=== PATIENT | female | born 1965 | race Caucasian/White ===

== ENCOUNTER 2020-03-25 07:57 | Outpatient (REF) | payer OTHER, SELFPAY ==
--- NOTE | 2020-04-26 | PFT_ITS ---
INDICATIONS: Dyspnea. SPIROMETRY: The FEV1 to FVC of 85% with an FEV1 of 2.52 L, which is 97% predicted and an FVC of 2.96 L, which is 89% predicted. No significant response to bronchodilators noted. Maximum voluntary ventilation 87% predicted. LUNG VOLUMES: Total lung capacity 87% predicted. DIFFUSION CAPACITY: 80% predicted. COMPARISONS: None. INTERPRETATION: No obstructive nor restrictive ventilatory defects have been identified. No significant response to bronchodilators noted. Normal maximum voluntary ventilation. Lung volumes are normal in addition to a low normal diffusion capacity. Clinical correlation warranted. MD OLEKSANDR Dan/MODLenny / [id number]
== END 2020-03-25 07:58 | disposition home or self-care (01) ==
LOC: HO.RESP 07:57
PROVIDERS: PCP Family Medicine; Visit Provider Internal Medicine
DX: J18.9 Pneumonia, unspecified organism (principal); R53.83 Other fatigue; R06.00 Dyspnea, unspecified
CPT/HCPCS: 94060; 94727; 94729

== ENCOUNTER → 2020-04-13 09:34 | Outpatient (BNVA) | payer OTHER, SELFPAY | PROVIDERS: PCP Family Medicine; Referring Provider Family Medicine; Visit Provider Internal Medicine | DX: Z76.89 Persons encountering health services in other specified circumstances (principal) ==

== ENCOUNTER 2020-05-22 17:32 | Emergency (ER) | payer OTHER, SELFPAY ==
[2020-05-22] VITALS (11 sets, daily range): BP systolic 107–139; BP diastolic 40–69; PULSE 77–110; RESP 17–20; TEMP 36.9; O2SAT 99–100; BMI 22.4
--- NOTE | 2020-05-22 | ECG_ITS ---
Test Reason : OVERDOSE Blood Pressure : / mmHG Vent. Rate : 081 BPM Atrial Rate : 081 BPM P-R Int : 140 ms QRS Dur : 086 ms QT Int : 392 ms P-R-T Axes : 081 078 080 degrees QTc Int : 455 ms Normal sinus rhythm Normal ECG When compared with ECG of 24-FEB-2020 18:20, T wave inversion no longer evident in Inferior leads Referred By: Elida Murillo Electronically Signed By:FIONA BUENO MD
--- NOTE | 2020-05-22 18:11 | PC.NURSE ---
MD polk states pt will be intubated. States pt will recieve Etomidate. Pt verbalizes understanding of plan to sedate and intubate patient. 1817 - Etomidate 20mg given to patient at this time. 1818 - rocuronium 100mg administered to patient, pt not responding at this time 1820 pt intubated, pt tolerated procedure well. per MD polk will start propofol drip
--- NOTE | 2020-05-22 18:22 | CT_ITS ---
EXAMINATION: CT ANGIOGRAM NECK CLINICAL INFORMATION: Suicidal attempt. COMPARISON: None TECHNIQUE: The degree of stenosis determined by NASCET criteria. This CT examination was performed using dose optimization techniques as appropriate, variously including the following: *Automated exposure control *Adjustment of mA and/or kV according to patient size (this includes techniques or standardized protocols for targeted exams where dose is matched to indication/reason for exam; i.e. extremities or head) *Use of iterative reconstruction technique DLP: 562 mGy-cm FINDINGS: CTA: There is normal thoracic arch with origins of right brachiocephalic, left common carotid and left subclavian artery widely patent. Both common carotid arteries, bulbs and internal carotid arteries are widely patent. There is head thin band in the right distal CCA just before artery enters intracranially. Also visualized is a hairpin band medially of the left carotid artery in the mid neck at the level of C2 vertebra. There is no visible thrombus, laceration or intimal thickening seen in the carotid arteries. There are codominant vertebral arteries bilaterally which are widely patent. The origins of both vertebral arteries of the subclavian artery are widely patent as well. The basilar artery is widely patent. A dominant right jugular vein is seen and patent. The left jugular vein is patent as well. Non-CTA: There is orally inserted endotracheal and enteric tube traversing the oropharynx. There is moderate amount of fluid surrounding the oropharynx and nasopharynx which needs to be aspirated. No focal mass seen in the oral cavity, oropharynx or the nasal cavity. The paranasal sinuses and mastoid air cells are widely patent. Intracranially visualized brain parenchyma including the frontal, parietal, occipital lobes and the posterior fossa appears unremarkable. Bilateral optic globes and the optic nerves are intact. The orbits are symmetrical and normal. No abnormality seen involving the visualized calvarium and the bony orbits. There are numerous laceration seen surrounding bilateral anterior neck with soft tissue edema and gas. Visualized bilateral parotid, submandibular glands are unremarkable. There is mild heterogeneity of the thyroid gland but otherwise symmetrical. There is bilateral apical pleural and parenchymal thickening/scarring. The craniovertebral junction and the visualized cervical vertebrae are normal. No fracture, dislocation or subluxation seen. The craniovertebral junction is normal. CT/CT angio neck IMPRESSION: Widely patent bilateral carotid and vertebral arteries in the neck and intracranially. The jugular veins are patent. A normal cervical-cerebral arch is noted. There is significant tortuosity of distal right internal carotid and mid to distal left internal carotid artery. 6 significant fluid collection in the nasopharynx and oropharynx surrounding the trachea and the enteric tube. There are multiple soft tissue laceration involving the lower anterior neck with gas and edema. The enteric and endotracheal tube are in satisfactory position. There is no osseous abnormality or fracture. Results were discussed with ER nurse at 7:30 PM.
[2020-05-22] MEDS: propofoL 200 MG/20 ML VIAL 100 MG IVPUSH (18:26)
--- NOTE | 2020-05-22 18:39 | PC.NURSE ---
son jany notfied of pt status and pt requested this rn to call and only speak to jany. [phone]
[2020-05-22] MEDS: propofoL 1,000 MG/100 ML VIAL 6.91 MG IVCONT (18:55)
[2020-05-22 19:02] LABS: COVID-19 Test Negative (Negative); IDNOW Serial# 9DD0AD1C
--- NOTE | 2020-05-22 19:06 | PC.NURSE ---
Report taken from Talha, this RN resuming care. Pt found laying in bed, intubated, on a propofol drip @ 20 mcg/kg/min, running at 7.06 ml/hr. Pt -> CT, returns from CT on hospital bed without incident. VSS.
[2020-05-22] MEDS: iohexoL 350 MG/ML 100 ML INFUS..BTL IV (19:08)
--- NOTE | 2020-05-22 19:35 | PC.NURSE ---
Addendum entered by Madisyn Rodriguez 05/22/20 19:38: 50 mcg/kg/min, 17.73 ml/hr. Original Note: Pt remains awake in bed, eyes open, moving arms/legs. This RN suctioning mouth, pt tolerating procedure well. Propofol increased to max dose of 50 mcg/kg/min, 17.3 ml/hr. commercial hvac service technician at bedside attempting to obtain labs, UA obtained and sent. VSS. Continue to monitor.
[2020-05-22] MEDS: Midazolam HCl/PF 2 MG/2 ML VIAL 4 MG IVPUSH (19:40)
--- NOTE | 2020-05-22 19:57 | PC.NURSE ---
Pt remains awake, although maxed out on Propofol drip. Unable to obtain labs at this time. Per MD, plan for Versed drip to properly sedate pt. VSS. Continue to monitor.
--- NOTE | 2020-05-22 20:20 | PC.NURSE ---
Pt medicated with 8 mg of Versed IVP per MD verbal order.
[2020-05-22] MEDS: Midazolam HCl/PF 2 MG/2 ML VIAL 8 MG IVPUSH (20:22)
--- NOTE | 2020-05-22 20:22 | PC.NURSE ---
Pharm called again for Versed drip, per pharm, 5-10 minutes.
[2020-05-22 20:24] LABS: Amphetamine Screen Urine Not Detected (Not Detect); Barbiturates, Urine Not Detected (Not Detect); Benzodiazepines Screen Urine Not Detected (Not Detect); Cannabinoid Screen Urine Not Detected (Not Detect); Cocaine Screen Urine Not Detected (Not Detect); Opiate Screen Urine Not Detected (Not Detect); Phencyclidine Screen Urine Not Detected (Not Detect)
--- NOTE | 2020-05-22 20:48 | ED_ITS ---
HPI - General Adult General Chief complaint: Psychiatric Symptoms Stated complaint: crisis Time Seen by Provider: 05/22/20 18:21 Source: patient and EMS Mode of arrival: EMS Limitations: no limitations History of Present Illness HPI narrative: patient comes to the emergency room after a suicide attempt. Patient states at 10:30 she has tried flashing her neck with a knife. She tried 3 times unsuccessfully. Patient states yesterday she tried overdosing with muscle relaxants, did not work, this morning she tried overdosing with ibuprofen, did work, therefore she tried committing suicide by slashing her neck. Patient states she has no previous history of suicide attempts. Patient states she has history of depression and since she was started on her medication she has contemplated suicide, she has history of self injury but never to this extent. MD complaint: Suicide attempt Related Data Home Medications Medication Instructions Recorded Confirmed clonazepam 1 mg tablet 1 mg PO BID 04/13/20 gabapentin 300 mg capsule 300 mg PO BID 04/13/20 gabapentin 600 mg tablet 600 mg PO DAILY 04/13/20 mirtazapine 45 mg tablet 45 mg PO BEDTIME 04/13/20 quetiapine 100 mg tablet 100 mg PO BEDTIME PRN 04/13/20 quetiapine 300 mg tablet 300 mg PO BEDTIME 04/13/20 Allergies Allergy/AdvReac Type Severity Reaction Status Date / Time No Known Allergies Allergy Verified 04/13/20 09:48 [No Known Allergies*] Review of Systems Review of Systems: Constitutional : No Weight loss, No Fever, No Chills, No Night Sweats, No Fatigue, No Malaise ENT/Mouth : deep laceration to neck Cardiovascular : No Chest Pain, No SOB, No Dyspnea on Exertion, No Orthopnea, No Edema, No Palpitations Respiratory : No Cough, No Sputum, No Wheezing, No Smoke Exposure, No Dyspnea Gastrointestinal : No Nausea, No Vomiting, No Diarrhea, No Constipation, No abdominal Pain, No Hematochezia, No Melena Genitourinary : no irregular bleeding, No Dysuria, No Urinary Frequency, No Hematuria, No Urinary Incontinence, No Urgency, No Flank Pain, No Urinary Flow Changes, No Hesitancy Musculoskeletal : No joint pain, No Myalgias, No Joint Swelling Skin : No Skin Lesions, No rash Neuro : No Weakness, No Numbness, No Paresthesias, No Loss of Consciousness, No Dizziness, No Headache Psych : severe depression, serious suicide attempt Heme/Lymph: No Bruising, No Bleeding,No Lymphadenopathy Endocrine : No Polyuria, No Polydipsia, No Temperature Intolerance PMF Past Medical History Medical History Dyspnea Fatigue Pneumonitis Social History Social History Smoking Status: Former smoker Advance Directives: No Advance Directives Information Provided: Yes Physical Exam Vital Signs: Vital Signs: Last Vital Signs Temp 98.4 F 05/22/20 17:49 Pulse 82 05/22/20 20:55 Resp 17 05/22/20 20:55 BP 116/59 L 05/22/20 20:55 Pulse Ox 100 05/22/20 20:55 Body Mass Index 22.4 Appearance: Alert. Oriented X3. No acute distress. Eyes: Pupils equal, round and reactive to light. ENT: see below Neck: patient has 3 fairly deep lacerations approximately 4 in each, horizontal lacerations to the anterior aspect of the neck, bleeding controlled. Patient talking in full sentences, no stridor. CVS: Normal heart rate and rhythm. Pulses normal. Normal S1 and S2 Respiratory: No respiratory distress. Breath sounds normal. No Wheezing. No rales Abdomen: Soft and nontender. No rigidity. No distention. good BS x4 Skin: Multiple superficial lacerations to both upper extremities, see above neck exam Extremities: No lower extremity edema. No lower extremity edema. No Lacer ations. No Rash Neuro: Oriented X 3. No motor deficit. No sensory deficit. Moving all extermities. No slurred speech. Course Course Course Narrative: as patient was talking to us expecting us how the incident happened, patient stated that she started feeling that her neck was starting to get very swollen, described this as football growing in her throat . patient was intubated immediately I discussed the patient with Dr. Marcum, CTA does not show any arterial or venous abnormality. Dr. Marcum recommended to transfer the patient to [facility]. I discussed the patient with Dr. Espinoza from the trauma team, exited the patient, ED to ED transfer. patient's hemoglobin is 8.5, this is baseline for the patient since at least February of 2020. Procedures Intubation sedative: Etomidate Mg Given: 20 paralytic: Rocuronium Mg Given: 100 Laryngoscope: other ( GlideScope) ET Tube Size: 7.5 ET Tube Uncuffed: No Tube Secured Depth (cm): 23 Tube Secured Location: lips Tube Placement Confirmation: visualized tube passing through cords, equal breath sounds bilaterally and no breath sounds over epigastrium Patient Tolerated Procedure: well Intubation Complications: none Medical Decision Making Lab Data Result diagrams: 05/22/20 19:31 05/22/20 19:32 Labs: Lab Results 05/22/20 05/22/20 05/22/20 Range/Units 18:32 19:31 19:32 WBC Cancelled RBC Cancelled Hgb Cancelled Hct Cancelled MCV Cancelled MCH Cancelled MCHC Cancelled RDW Cancelled Plt Count Cancelled MPV Cancelled Absolute Nucleated RBC Cancelled Nucleated RBC % (auto) Cancelled Sodium 139 (135-145) mmol/L Potassium 4.2 (3.3-5.1) mmol/l Chloride 110 H (96-108) mmol/L Carbon Dioxide 18 L (22-29) mmol/L Anion Gap 15 (12-20) BUN 13 (9-16) mg/dL Creatinine 0.90 (0.5-1.4) mg/dL Estim Creat Clear Calc 58.4 Estimated GFR > 60 Random Glucose 93 (60-115) mg/dL Calcium 8.5 (8.4-10.2) mg/dL Urine Color Urine Appearance Urine pH (5.0-8.0) Ur Specific [place] (1.005-1.025) Urine Protein (NEG-TRACE) MG/DL Urine Glucose (UA) (NEG) MG/DL Urine Ketones (NEG) MG/DL Urine Blood (NEG) Urine Nitrite (NEG) Ur Leukocyte Esterase (NEG) Urine RBC (0) /HPF Urine WBC (0-4) /HPF Ur Squamous Epith Cells /LPF Urine Bacteria /LPF Salicylates (15-30) mg/dL Urine Opiates Screen (Not Detect) Acetaminophen (<30) mcg/mL Ur Barbiturates Screen (Not Detect) Ur Phencyclidine Scrn (Not Detect) Ur Amphetamines Screen (Not Detect) U Benzodiazepines Scrn (Not Detect) Urine Cocaine Screen (Not Detect) U Marijuana (THC) Screen (Not Detect) COVID-19 (MIRIAN) Negative (Negative) COVID-19 Clin Com See Note 05/22/20 05/22/20 05/22/20 Range/Units 19:32 19:32 19:32 WBC RBC Hgb Hct MCV MCH MCHC RDW Plt Count MPV Absolute Nucleated RBC Nucleated RBC % (auto) Sodium (135-145) mmol/L Potassium (3.3-5.1) mmol/l Chloride (96-108) mmol/L Carbon Dioxide (22-29) mmol/L Anion Gap (12-20) BUN (9-16) mg/dL Creatinine (0.5-1.4) mg/dL Estim Creat Clear Calc Estimated GFR Random Glucose (60-115) mg/dL Calcium (8.4-10.2) mg/dL Urine Color YELLOW Urine Appearance CLEAR Urine pH 5.5 (5.0-8.0) Ur Specific [place] 1.010 (1.005-1.025) Urine Protein NEG (NEG-TRACE) MG/DL Urine Glucose (UA) NEG (NEG) MG/DL Urine Ketones 5 (NEG) MG/DL Urine Blood TRACE (NEG) Urine Nitrite NEG (NEG) Ur Leukocyte Esterase NEG (NEG) Urine RBC 0-2 (0) /HPF Urine WBC 0 (0-4) /HPF Ur Squamous Epith Cells NONE /LPF Urine Bacteria NONE /LPF Salicylates < 5.0 L (15-30) mg/dL Urine Opiates Screen Not Detected (Not Detect) Acetaminophen < 1 (<30) mcg/mL Ur Barbiturates Screen Not Detected (Not Detect) Ur Phencyclidine Scrn Not Detected (Not Detect) Ur Amphetamines Screen Not Detected (Not Detect) U Benzodiazepines Scrn Not Detected (Not Detect) Urine Cocaine Screen Not Detected (Not Detect) U Marijuana (THC) Screen Not Detected (Not Detect) COVID-19 (MIRIAN) (Negative) COVID-19 Clin Com Imaging Data CT a neck: Radiologist's impression: CTA: There is normal thoracic arch with origins of right brachiocephalic, left common carotid and left subclavian artery widely patent. Both common carotid arteries, bulbs and internal carotid arteries are widely patent. There is head thin band in the right distal CCA just before artery enters intracranially. Also visualized is a hairpin band medially of the left carotid artery in the mid neck at the level of C2 vertebra. There is no visible thrombus, laceration or intimal thickening seen in the carotid arteries. There are codominant vertebral arteries bilaterally which are widely patent. The origins of both vertebral arteries of the subclavian artery are widely patent as well. The basilar artery is widely patent. A dominant right jugular vein is seen and patent. The left jugular vein is patent as well. Non-CTA: There is orally inserted endotracheal and enteric tube traversing the oropharynx. There is moderate amount of fluid surrounding the oropharynx and nasopharynx which needs to be aspirated. No focal mass seen in the oral cavity, oropharynx or the nasal cavity. The paranasal sinuses and mastoid air cells are widely patent. Intracranially visualized brain parenchyma including the frontal, parietal, occipital lobes and the posterior fossa appears unremarkable. Bilateral optic globes and the optic nerves are intact. The orbits are symmetrical and normal. No abnormality seen involving the visualized calvarium and the bony orbits. There are numerous laceration seen surrounding bilateral anterior neck with soft tissue edema and gas. Visualized bilateral parotid, submandibular glands are unremarkable. There is mild heterogeneity of the thyroid gland but otherwise symmetrical. There is bilateral apical pleural and parenchymal thickening/scarring. The craniovertebral junction and the visualized cervical vertebrae are normal. No fracture, dislocation or subluxation seen. The craniovertebral junction is normal. ECG Data Attestation: I personally reviewed and interpreted this ECG as follows: ( heart rate 81, sinus rhythm, no ST segment depressions or elevations, no T-wave inversions) Critical Care Time Critical Care Time Total Critical Care Time: 120 Discharge Plan Discharge Clinical Impression: Suicidal ideation, Laceration of muscle of neck, Suicide attempt Patient Disposition: Xf Acute Care Hospital Prescriptions: No Action mirtazapine 45 mg tablet 45 mg PO BEDTIME RF: 0 quetiapine 300 mg tablet 300 mg PO BEDTIME RF: 0 quetiapine 100 mg tablet 100 mg PO BEDTIME PRNRF: 0 gabapentin 600 mg tablet 600 mg PO DAILY RF: 0 gabapentin 300 mg capsule 300 mg PO BID RF: 0 clonazepam 1 mg tablet 1 mg PO BID RF: 0 Interventions: Acute Care Transfer Worksheet (ED) Last Done: 05/22/20 21:23 Discharge Date/Time: 05/22/20 21:30
[2020-05-22] MEDS: Midazolam HCl/NS 50 MG/50 ML PLAST..BAG IVCONT (20:49)
--- NOTE | 2020-05-22 20:54 | PC.NURSE ---
Versed infusion started 2 mg/hr. EMS at bedside to transport to [facility]. VSS.
--- NOTE | 2020-05-22 20:55 | PC.NURSE ---
television production technician obtained some of the ordered labs after multiple attempts.
[2020-05-22 21:02] LABS: Glucose Urine UA NEG (NEG); Leukocyte Esterase Urine NEG (NEG); Nitrite Urine NEG (NEG); PH 5.5 (5.0-8.0); Urine Blood TRACE (NEG); Urine Ketones 5 MG/DL (NEG); Urine Protein NEG (NEG-TRACE)
[2020-05-22 21:12] LABS: Anion Gap 15 (12-20); Blood Urea Nitrogen 13 mg/dL (9-16); Calcium 8.5 mg/dL (8.4-10.2); Carbon Dioxide 18 mmol/L (22-29); Chloride 110 mmol/L (96-108); Creatinine Clr Calc Pharmacy 58.4; Estimated Glomerular Filt Rate > 60; Glucose Random 93 mg/dL (60-115); Potassium 4.2 mmol/l (3.3-5.1); Sodium 139 mmol/L (135-145)
[2020-05-22 21:13] LABS: Appearance Urine CLEAR; Color Urine YELLOW
[2020-05-22 21:14] LABS: Salicylate < 5.0 mg/dL (15-30)
[2020-05-22 21:16] LABS: Acetaminophen LAB < 1 mcg/mL (<30)
--- NOTE | 2020-05-22 21:21 | PC.NURSE ---
Report given to MCKAY Hopson RN.
--- NOTE | 2020-05-22 21:25 | PC.NURSE ---
Son notified by this RN of transfer to [facility].
[2020-05-22 22:23] LABS: RBC Urine 0-2 /HPF (0); WBC Urine 0 /HPF (0-4)
== END 2020-05-22 21:30 | disposition short-term general hospital (02) ==
PROVIDERS: Emergency Provider Emergency Medicine
DX: S11.81XA Laceration without foreign body of other specified part of neck, initial encounter (principal); F33.1 Major depressive disorder, recurrent, moderate; R45.851 Suicidal ideations; Z87.891 Personal history of nicotine dependence; Z79.899 Other long term (current) drug therapy; Z03.89 Encounter for observation for other suspected diseases and conditions ruled out; X78.1XXA Intentional self-harm by knife, initial encounter; Y93.9 Activity, unspecified; Y92.9 Unspecified place or not applicable; Y99.9 Unspecified external cause status; Z20.828 Contact with and (suspected) exposure to other viral communicable diseases
CPT/HCPCS: 31500; 36415; 70498; 80048; 80307; 81001; 81003; 85027; 87635; 93005; 94002; 94003; 96365; 96366; 96375; 96376; 99285; 99291; 99292; C9803; G0480; J2250; Q9967

== ENCOUNTER → 2020-08-05 09:57 | Outpatient (BNVA) | payer OTHER, SELFPAY | PROVIDERS: Visit Provider Internal Medicine | DX: Z13.89 Encounter for screening for other disorder (principal) | CPT/HCPCS: 80305 ==

== ENCOUNTER 2021-09-28 09:04 | Outpatient (REF) | payer OTHER, SELFPAY ==
[2021-09-28 09:31] LABS: MANUAL DIFF FLAG NO
[2021-09-28 09:45] LABS: Basophils Absolute Auto 0.1 X10*3/uL (0.0-0.2); Eosinophils Absolute Auto 0.3 X10*3/uL (0.0-0.4); Hematocrit 42.5 % (37.0-47.0); Imm Gran Abs Auto 0.02 X10*3/uL (0.00-0.03); Imm Gran Pct Auto 0.3 % (0.0-0.4); Lymphocytes Absolute Auto 2.2 X10*3/uL (1.2-4.9); Lymphocytes Percent Auto 37.8 % (20-40); Mean Corpuscular HGB Conc 32.9 g/dl (31.0-35.0); Mean Corpuscular Hemoglobin 30.3 pg (27.0-33.0); Mean Platelet Volume 9.4 fL (9.4-12.3); Monocytes Absolute Auto 0.6 X10*3/uL (0.1-1.2); Monocytes Percent Auto 10.4 % (2-11); Neutrophils Absolute Auto 2.6 x10*3/uL (2.0-8.3); Neutrophils Percent Auto 45.5 % (45-73); Platelet Count 252 X10*3/uL (160-400); Red Blood Count 4.62 X10*6/uL (4.20-5.50); Red Cell Distribution Width 12.1 % (11.0-16.0); White Blood Count 5.8 X10*3/uL (4.8-10.8)
[2021-09-28 10:22] LABS: Estimated Average Glucose 97 mg/dL
[2021-09-28 10:27] LABS: Alanine Aminotransferase 32 U/L (0-31); Albumin Level 4.1 g/dL (3.5-5.0); Alkaline Phosphatase 67 U/L (39-117); Anion Gap 11 (12-20); Aspartate Amino Transferase 35 U/L (5-31); Bilirubin Total 0.3 mg/dL (0.0-1.0); Blood Urea Nitrogen 9 mg/dL (9-16); Calcium 9.5 mg/dL (8.4-10.2); Carbon Dioxide 30 mmol/L (22-29); Chloride 101 mmol/L (96-108); Cholesterol 178 mg/dL; Estimated Glomerular Filt Rate > 60; Glucose Random 94 mg/dL (60-115); HDL Cholesterol 61 mg/dL; LDL Cholesterol Calculated 102 mg/dl; Potassium 3.2 mmol/L (3.3-5.1); Sodium 139 mmol/L (135-145); Total Protein 5.9 g/dL (6.5-8.0); Triglycerides 78 mg/dL
[2021-09-28 10:40] LABS: Free T4 (Free Thyroxine) 0.75 ng/dL (0.71-1.85); Thyroid Stimulating Hormone 2.18 uIU/mL (0.32-4.0)
[2021-09-28 11:04] LABS: Folate > 20.0 ng/mL (> or = 4.0); Vitamin B12 755 pg/mL (200-900)
== END 2021-09-28 09:05 | disposition home or self-care (01) ==
LOC: HO.LAB 09:04
PROVIDERS: PCP Family Medicine; Visit Provider Psychiatry & Neurology Psychiatry
DX: F34.1 Dysthymic disorder (principal)
CPT/HCPCS: 36415; 80053; 80061; 82607; 82746; 83036; 84439; 84443; 85025

== ENCOUNTER 2021-11-17 13:30 | Outpatient (REF) | payer OTHER, SELFPAY ==
[2021-11-17 14:21] LABS: Alanine Aminotransferase 31 U/L (0-31); Albumin Level 4.2 g/dL (3.5-5.0); Alkaline Phosphatase 63 U/L (39-117); Anion Gap 12 (12-20); Aspartate Amino Transferase 25 U/L (5-31); Bilirubin Total 0.3 mg/dL (0.0-1.0); Blood Urea Nitrogen 15 mg/dL (9-16); Carbon Dioxide 31 mmol/L (22-29); Chloride 95 mmol/L (96-108); Estimated Glomerular Filt Rate > 60; Gamma Glutamyl Transpeptidase 37 U/L (7-33); Glucose Random 89 mg/dL (60-115); Potassium 3.4 mmol/L (3.3-5.1); Sodium 135 mmol/L (135-145); Total Protein 6.2 g/dL (6.5-8.0)
[2021-11-17 14:27] LABS: Estimated Average Glucose 97 mg/dL
== END 2021-11-17 13:31 | disposition home or self-care (01) ==
LOC: HO.LAB 13:30
PROVIDERS: PCP Family Medicine; Visit Provider Psychiatry & Neurology Psychiatry
DX: F34.1 Dysthymic disorder (principal)
CPT/HCPCS: 36415; 80053; 82977; 83036

== ENCOUNTER 2021-12-29 14:31 | Outpatient (REF) | payer OTHER, SELFPAY ==
--- NOTE | 2021-12-29 | ECG_ITS ---
Test Reason : F50.02 Blood Pressure : / mmHG Vent. Rate : 103 BPM Atrial Rate : 103 BPM P-R Int : 144 ms QRS Dur : 086 ms QT Int : 510 ms P-R-T Axes : 086 083 083 degrees QTc Int : [address] & T wave abnormality, consider inferior ischemia ST & T wave abnormality, consider anterolateral ischemia Prolonged QT Abnormal ECG When compared with ECG of 22-MAY-2020 20:15, ST now depressed in Anterior leads T wave inversion now evident in Anterolateral leads QT has lengthened Referred By: Shankar Tom Electronically Signed By:Pedro Asher
[2021-12-29 14:47] LABS: MANUAL DIFF FLAG NO
[2021-12-29 14:56] LABS: Basophils Absolute Auto 0.1 X10*3/uL (0.0-0.2); Eosinophils Absolute Auto 0.1 X10*3/uL (0.0-0.4); Eosinophils Percent Auto 1.5 % (0-4); Hematocrit 42.4 % (37.0-47.0); Hemoglobin 14.6 g/dl (12.0-16.0); Imm Gran Abs Auto 0.02 X10*3/uL (0.00-0.03); Imm Gran Pct Auto 0.3 % (0.0-0.4); Lymphocytes Percent Auto 33.4 % (20-40); Mean Corpuscular HGB Conc 34.4 g/dl (31.0-35.0); Mean Corpuscular Hemoglobin 30.7 pg (27.0-33.0); Mean Corpuscular Volume 89.3 fL (80.0-98.0); Mean Platelet Volume 8.9 fL (9.4-12.3); Monocytes Absolute Auto 0.6 X10*3/uL (0.1-1.2); Monocytes Percent Auto 10.5 % (2-11); Neutrophils Absolute Auto 3.2 x10*3/uL (2.0-8.3); Neutrophils Percent Auto 53.3 % (45-73); Platelet Count 322 X10*3/uL (160-400); Red Blood Count 4.75 X10*6/uL (4.20-5.50); Red Cell Distribution Width 11.7 % (11.0-16.0)
[2021-12-29 16:00] LABS: Alanine Aminotransferase 25 U/L (0-31); Albumin Level 4.3 g/dL (3.5-5.0); Alkaline Phosphatase 70 U/L (39-117); Anion Gap 13 (12-20); Aspartate Amino Transferase 28 U/L (5-31); Bilirubin Total 0.4 mg/dL (0.0-1.0); Blood Urea Nitrogen 12 mg/dL (9-16); Calcium 9.5 mg/dL (8.4-10.2); Carbon Dioxide 32 mmol/L (22-29); Chloride 95 mmol/L (96-108); Estimated Glomerular Filt Rate > 60; Gamma Glutamyl Transpeptidase 38 U/L (7-33); Glucose Random 99 mg/dL (60-115); Potassium 3.2 mmol/L (3.3-5.1); Sodium 137 mmol/L (135-145); Total Protein 6.2 g/dL (6.5-8.0)
[2021-12-29 16:30] LABS: Estimated Average Glucose 94 mg/dL; Hemoglobin A1c % 4.9 %
== END 2021-12-29 14:32 | disposition home or self-care (01) ==
LOC: HO.LAB 14:31
PROVIDERS: PCP Family Medicine; Visit Provider Psychiatry & Neurology Psychiatry
DX: F50.02 Anorexia nervosa, binge eating/purging type (principal)
CPT/HCPCS: 36415; 80053; 82977; 83036; 85025; 93005

== ENCOUNTER 2021-12-29 19:09 | Emergency (ER) | payer OTHER, SELFPAY ==
--- NOTE | 2021-12-29 19:10 | ECG_ITS ---
Test Reason : sob chest pain Blood Pressure : / mmHG Vent. Rate : 086 BPM Atrial Rate : 086 BPM P-R Int : 134 ms QRS Dur : 086 ms QT Int : 374 ms P-R-T Axes : 083 081 075 degrees QTc Int : 447 ms Normal sinus rhythm Nonspecific T wave abnormality Abnormal ECG When compared with ECG of 29-DEC-2021 14:39, Non-specific change in ST segment in Inferior leads T wave inversion no longer evident in Anterior leads QT has shortened Referred By: Generic ED Physician Electronically Signed By:Pedro Asher
[2021-12-29 19:12] VITALS: BP 118/67; PULSE 93; RESP 18; TEMP 37; O2SAT 100; BMI 15.9
[2021-12-29 19:28] LABS: MANUAL DIFF FLAG NO
[2021-12-29 19:45] LABS: Basophils Absolute Auto 0.1 X10*3/uL (0.0-0.2); Basophils Percent Auto 1.1 % (0-2); Eosinophils Absolute Auto 0.1 X10*3/uL (0.0-0.4); Eosinophils Percent Auto 2.3 % (0-4); Hematocrit 40.2 % (37.0-47.0); Imm Gran Abs Auto 0.01 X10*3/uL (0.00-0.03); Imm Gran Pct Auto 0.2 % (0.0-0.4); Lymphocytes Absolute Auto 2.5 X10*3/uL (1.2-4.9); Lymphocytes Percent Auto 44.8 % (20-40); Mean Corpuscular HGB Conc 34.8 g/dl (31.0-35.0); Mean Corpuscular Hemoglobin 31.1 pg (27.0-33.0); Mean Corpuscular Volume 89.3 fL (80.0-98.0); Monocytes Absolute Auto 0.6 X10*3/uL (0.1-1.2); Monocytes Percent Auto 10.1 % (2-11); Neutrophils Absolute Auto 2.4 x10*3/uL (2.0-8.3); Neutrophils Percent Auto 41.5 % (45-73); Platelet Count 315 X10*3/uL (160-400); Red Cell Distribution Width 11.8 % (11.0-16.0); White Blood Count 5.7 X10*3/uL (4.8-10.8)
[2021-12-29 19:52] LABS: Troponin-I High Sensitivity < 3.5 ng/L (<3.5-17.0)
[2021-12-29 19:58] LABS: Alanine Aminotransferase 25 U/L (0-31); Albumin Level 4.2 g/dL (3.5-5.0); Alkaline Phosphatase 69 U/L (39-117); Anion Gap 11 (12-20); Aspartate Amino Transferase 25 U/L (5-31); Bilirubin Total 0.3 mg/dL (0.0-1.0); Blood Urea Nitrogen 12 mg/dL (9-16); Calcium 9.2 mg/dL (8.4-10.2); Carbon Dioxide 35 mmol/L (22-29); Chloride 95 mmol/L (96-108); Creatinine Clr Calc Pharmacy 45.5; Estimated Glomerular Filt Rate > 60; Glucose Random 98 mg/dL (60-115); Potassium 2.6 mmol/L (3.3-5.1); Sodium 138 mmol/L (135-145)
== END 2021-12-29 21:18 | disposition left against medical advice (07) ==
PROVIDERS: Emergency Provider Emergency Medicine; PCP Family Medicine
DX: R94.31 Abnormal electrocardiogram [ECG] [EKG] (principal)
CPT/HCPCS: 36415; 80053; 84484; 85025; 93005; 99282; 99283

== ENCOUNTER 2022-01-03 11:32 | Outpatient (REF) | payer OTHER, SELFPAY ==
--- NOTE | 2022-01-03 11:38 | ECG_ITS ---
Test Reason : F50.02 Blood Pressure : / mmHG Vent. Rate : 094 BPM Atrial Rate : 094 BPM P-R Int : 136 ms QRS Dur : 080 ms QT Int : 374 ms P-R-T Axes : 084 082 081 degrees QTc Int : 467 ms Normal sinus rhythm Normal ECG When compared with ECG of 29-DEC-2021 19:08, No significant change was found Referred By: Shankar Tom Electronically Signed By:JOHN SANFORD MD
[2022-01-03 12:38] LABS: Alanine Aminotransferase 26 U/L (0-31); Alkaline Phosphatase 67 U/L (39-117); Anion Gap 13 (12-20); Aspartate Amino Transferase 24 U/L (5-31); Bilirubin Total 0.3 mg/dL (0.0-1.0); Blood Urea Nitrogen 12 mg/dL (9-16); Calcium 8.7 mg/dL (8.4-10.2); Carbon Dioxide 32 mmol/L (22-29); Chloride 98 mmol/L (96-108); Estimated Glomerular Filt Rate > 60; Glucose Fasting 103 mg/dL (60-99); Potassium 3.4 mmol/L (3.3-5.1); Sodium 140 mmol/L (135-145); Total Protein 5.6 g/dL (6.5-8.0)
== END 2022-01-03 11:33 | disposition home or self-care (01) ==
LOC: HO.LAB 11:32
PROVIDERS: PCP Family Medicine; Visit Provider Psychiatry & Neurology Psychiatry
DX: F50.02 Anorexia nervosa, binge eating/purging type (principal)
CPT/HCPCS: 36415; 80053; 93005

== ENCOUNTER → 2022-04-17 10:18 | Outpatient (BNVA) | payer OTHER, SELFPAY | PROVIDERS: PCP Family Medicine; Visit Provider Psychiatry & Neurology Psychiatry | DX: F50.9 Eating disorder, unspecified (principal) | CPT/HCPCS: 90833 ==

== ENCOUNTER → 2022-08-08 11:19 | Outpatient (BNVA) | payer OTHER, SELFPAY | PROVIDERS: PCP Family Medicine; Visit Provider Psychiatry & Neurology Psychiatry | DX: Z13.89 Encounter for screening for other disorder (principal) ==

== ENCOUNTER → 2022-09-19 11:32 | Outpatient (REF) | payer OTHER, SELFPAY ==
--- NOTE | 2022-09-19 13:25 | ECG_ITS ---
Test Reason : F50.9 Blood Pressure : / mmHG Vent. Rate : 089 BPM Atrial Rate : 089 BPM P-R Int : 138 ms QRS Dur : 074 ms QT Int : 374 ms P-R-T Axes : 088 084 077 degrees QTc Int : 455 ms Normal sinus rhythm Possible Left atrial enlargement Borderline ECG No significant changes when compared with the previous EKG of 03 january 2022 Referred By: Shankar Tom Electronically Signed By:JILL VALENCIA
[2022-09-19 13:38] LABS: MANUAL DIFF FLAG NO
[2022-09-19 14:19] LABS: Basophils Absolute Auto 0.1 X10*3/uL (0.0-0.2); Basophils Percent Auto 0.9 % (0-2); Eosinophils Absolute Auto 0.1 X10*3/uL (0.0-0.4); Eosinophils Percent Auto 2.2 % (0-4); Hemoglobin 13.8 g/dl (12.0-16.0); Imm Gran Abs Auto 0.02 X10*3/uL (0.00-0.03); Imm Gran Pct Auto 0.3 % (0.0-0.4); Lymphocytes Absolute Auto 2.1 X10*3/uL (1.2-4.9); Lymphocytes Percent Auto 33.2 % (20-40); Mean Corpuscular HGB Conc 33.7 g/dl (31.0-35.0); Mean Corpuscular Hemoglobin 30.7 pg (27.0-33.0); Mean Corpuscular Volume 91.3 fL (80.0-98.0); Mean Platelet Volume 9.4 fL (9.4-12.3); Monocytes Absolute Auto 0.5 X10*3/uL (0.1-1.2); Neutrophils Absolute Auto 3.5 x10*3/uL (2.0-8.3); Neutrophils Percent Auto 55.4 % (45-73); Platelet Count 314 X10*3/uL (160-400); Red Blood Count 4.49 X10*6/uL (4.20-5.50); Red Cell Distribution Width 12.2 % (11.0-16.0); White Blood Count 6.4 X10*3/uL (4.8-10.8)
[2022-09-19 14:33] LABS: Estimated Average Glucose 100 mg/dL; Hemoglobin A1c % 5.1 %
[2022-09-19 14:48] LABS: Alanine Aminotransferase 29 U/L (0-31); Albumin Level 3.9 g/dL (3.5-5.0); Alkaline Phosphatase 65 U/L (39-117); Anion Gap 10 (12-20); Aspartate Amino Transferase 27 U/L (5-31); Bilirubin Total 0.4 mg/dL (0.0-1.0); Blood Urea Nitrogen 16 mg/dL (9-16); Calcium 9.1 mg/dL (8.4-10.2); Carbon Dioxide 33 mmol/L (22-29); Chloride 98 mmol/L (96-108); Estimated Glomerular Filt Rate > 60; Glucose Random 85 mg/dL (60-115); Magnesium 2.1 mg/dL (1.6-2.6); Potassium 3.3 mmol/L (3.3-5.1); Sodium 138 mmol/L (135-145); Total Protein 5.8 g/dL (6.5-8.0)
== END ==
LOC: HO.CARD 11:32
PROVIDERS: PCP Family Medicine; Visit Provider Psychiatry & Neurology Psychiatry
DX: F50.9 Eating disorder, unspecified (principal); R73.9 Hyperglycemia, unspecified; Z79.899 Other long term (current) drug therapy
CPT/HCPCS: 36415; 80053; 83036; 83735; 85025; 93005

== ENCOUNTER 2022-12-06 12:11 | Outpatient (AMB) | payer OTHER, SELFPAY ==
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
== END 2022-12-06 12:14 | disposition home or self-care (01) ==
LOC: HO.HOP 12:12
PROVIDERS: PCP Family Medicine; Visit Provider Psychiatry & Neurology Psychiatry
DX: F42.9 Obsessive-compulsive disorder, unspecified (principal); F50.2 Bulimia nervosa; F32.4 Major depressive disorder, single episode, in partial remission; F41.1 Generalized anxiety disorder
CPT/HCPCS: 90833; 99213

== ENCOUNTER → 2022-12-06 12:11 | Outpatient (BNVA) | payer OTHER, SELFPAY | PROVIDERS: PCP Family Medicine; Visit Provider Psychiatry & Neurology Psychiatry ==

== ENCOUNTER 2023-01-15 21:56 | Emergency (ER) | payer OTHER, SELFPAY ==
--- NOTE | 2023-01-15 | ECG_ITS ---
Test Reason : PALPITATION Blood Pressure : / mmHG Vent. Rate : 077 BPM Atrial Rate : 077 BPM P-R Int : 142 ms QRS Dur : 086 ms QT Int : 432 ms P-R-T Axes : 086 078 072 degrees QTc Int : 488 ms Normal sinus rhythm Prolonged QT Abnormal ECG When compared with ECG of 19-SEP-2022 13:27, No significant change was found Referred By: Generic ED Physician Electronically Signed By:JOHN SANFORD MD
[2023-01-15 21:59] VITALS: BP 113/94; PULSE 81; RESP 16; TEMP 36; O2SAT 100; BMI 16.0
[2023-01-15 22:35] LABS: MANUAL DIFF FLAG NO
[2023-01-15 22:41] LABS: Basophils Absolute Auto 0.1 X10*3/uL (0.0-0.2); Basophils Percent Auto 1.8 % (0-2); Eosinophils Absolute Auto 0.2 X10*3/uL (0.0-0.4); Hematocrit 38.1 % (37.0-47.0); Hemoglobin 12.7 g/dl (12.0-16.0); Imm Gran Abs Auto 0.01 X10*3/uL (0.00-0.03); Imm Gran Pct Auto 0.3 % (0.0-0.4); Lymphocytes Absolute Auto 1.5 X10*3/uL (1.2-4.9); Lymphocytes Percent Auto 40.4 % (20-40); Mean Corpuscular HGB Conc 33.3 g/dl (31.0-35.0); Mean Corpuscular Hemoglobin 30.6 pg (27.0-33.0); Mean Corpuscular Volume 91.8 fL (80.0-98.0); Mean Platelet Volume 8.7 fL (9.4-12.3); Monocytes Absolute Auto 0.4 X10*3/uL (0.1-1.2); Monocytes Percent Auto 11.3 % (2-11); Neutrophils Absolute Auto 1.6 x10*3/uL (2.0-8.3); Neutrophils Percent Auto 42.2 % (45-73); Platelet Count 278 X10*3/uL (160-400); Red Blood Count 4.15 X10*6/uL (4.20-5.50); White Blood Count 3.8 X10*3/uL (4.8-10.8)
[2023-01-15 23:00] LABS: Alanine Aminotransferase 24 U/L (0-31); Albumin Level 3.7 g/dL (3.5-5.0); Alkaline Phosphatase 65 U/L (39-117); Aspartate Amino Transferase 27 U/L (5-31); Bilirubin Total 0.4 mg/dL (0.0-1.0); Blood Urea Nitrogen 17 mg/dL (9-16); Calcium 8.6 mg/dL (8.4-10.2); Creatinine Clr Calc Pharmacy 52.2; Estimated Glomerular Filt Rate > 60; Glucose Fasting 80 mg/dL (60-99); Magnesium 2.1 mg/dL (1.6-2.6); Total Protein 5.8 g/dL (6.5-8.0)
[2023-01-15 23:03] LABS: Troponin-I High Sensitivity < 2.7 ng/L (<3.5-17.0)
[2023-01-15 23:14] LABS: Anion Gap 12 (12-20); Carbon Dioxide 34 mmol/L (22-29); Chloride 97 mmol/L (96-108); Potassium 2.5 mmol/L (3.3-5.1); Sodium 140 mmol/L (135-145)
--- NOTE | 2023-01-15 23:43 | PC.NURSE ---
notified of potassium level.
--- NOTE | 2023-01-15 23:56 | ED_ITS ---
HPI - Recheck/Abnormal Lab/Rx General Chief Complaint: Recheck/Abnormal Lab/Rx Stated Complaint: Potassium levels low sent by Time Seen by Provider: 01/15/23 23:44 Source: patient Mode of arrival: ambulatory Limitations: no limitations History of Present Illness HPI narrative: Patient comes to the emergency room complaining of low potassium. Patient was seen by her primary care physician, labs showed that her potassium was low and patient was asked to come to the emergency room for treatment. Patient states that she has been having palpitations intermittently, no chest pain. Patient states that she has an eating disorder, she has been making herself throw up and also takes large amount of laxatives to provoke diarrhea. At this time, patient denies SI or HI. Related Data Home Medications Medication Instructions Recorded Confirmed rosuvastatin 10 mg tablet 10 mg PO BEDTIME 04/17/22 12/06/22 Previous Rx's Medication Instructions Recorded escitalopram oxalate 20 mg tablet 20 mg PO DAILY #30 tabs 12/06/22 mirtazapine 15 mg tablet 15 mg PO BEDTIME #30 tabs 12/06/22 quetiapine 100 mg tablet 100 mg PO BID #60 tabs 12/06/22 quetiapine 200 mg tablet 600 mg PO BEDTIME #90 tabs 12/06/22 Allergies Allergy/AdvReac Type Severity Reaction Status Date / Time prescription pain killers Allergy Unknown Uncoded 12/11/21 12:40 Review of Systems Review of Systems: Constitutional : No Weight loss, No Fever, No Chills, No Night Sweats, No Fatigue, No Malaise ENT/Mouth : No Hearing loss, No Ear Pain, No Nasal Congestion, No Sinus Pain, No Hoarseness, No sore throat, No Rhinorrhea, No Swallowing Difficulty Eyes: No Eye Pain, No Swelling, No Redness, No Foreign Body, No Discharge, No Vision Changes Cardiovascular : No Chest Pain, No SOB, No Dyspnea on Exertion, No Orthopnea, No Edema, No Palpitations Respiratory : No Cough, No Sputum, No Wheezing, No Smoke Exposure, No Dyspnea Gastrointestinal : No Nausea, complaining of self-induced vomiting and diarrhea Genitourinary : no irregular bleeding, No Dysuria, No Urinary Frequency, No Hematuria, No Urinary Incontinence, No Urgency, No Flank Pain, No Urinary Flow Changes, No Hesitancy Musculoskeletal : No joint pain, No Myalgias, No Joint Swelling Skin : No Skin Lesions, No rash Neuro : No Weakness, No Numbness, No Paresthesias, No Loss of Consciousness, No Dizziness, No Headache Psych : No Anxiety/Panic, No Depression, No SI/HI/AH/VH, No Social Issues, Heme/Lymph: No Bruising, No Bleeding,No Lymphadenopathy Endocrine : No Polyuria, No Polydipsia, No Temperature Intolerance PMFSH Past Medical History Medical History Compulsive shopping Dyspnea Eating disorder Fatigue Neck injury Pneumonitis Polysubstance (including opioids) dependence with physiol dependence Family History Family History (System 12/11/21 @ 12:40 by Adelina Hooper) Mother Dementia Social History Social History (System 12/11/21 @ 12:40 by Adelina Hooper) Advance Directives: No Advance Directives Information Provided: No Physical Exam Vital Signs: Vital Signs: Last Vital Signs Temp 96.8 F 01/15/23 21:59 Pulse 81 01/15/23 21:59 Resp 16 01/15/23 21:59 BP 113/94 H 01/15/23 21:59 Pulse Ox 100 01/15/23 21:59 O2 Del Method Room Air 01/15/23 21:59 BMI result Body Mass Index 16.0 Const: Other: Appearance: Alert. Oriented X3. No acute distress. Eyes: Pupils equal, round and reactive to light. ENT: Pharynx normal. Neck: Normal inspection. Neck supple. No lymph nodes noted. No crepitus CVS: Normal heart rate and rhythm. Pulses normal. Normal S1 and S2 Respiratory: No respiratory distress. Breath sounds normal. No Wheezing. No rales Abdomen: Soft and nontender. No rigidity. No distention. Skin: Skin warm and dry. Normal skin color. Normal skin turgor. Extremities: No lower extremity edema. No Lacerations. No Rash Neuro: Oriented X 3. No motor deficit. No sensory deficit. Moving all extremities. No slurred speech. CN 2 through 12 grossly intact Psych: calm, cooperative, normal affect Course Course Course Narrative: -potassium level 2.5, patient will be repleted with p.o. potassium, magnesium level pending. We will attempt p.o. repletion 1st. If the repeat levels are not improving, patient may need IV potassium -magnesium level 2.1. 00:41, I was informed by the patient's nurse that the patient eloped without taking her medication. Medications Administered Discontinued Medications Generic Name Dose Route Start Last Admin Trade Name Donavon PRN Reason Stop Dose Admin Potassium Chloride 100 meq 01/15/23 23:56 01/16/23 00:08 Potassium Chloride Packet 20 Meq Packet PO 01/15/23 23:57 100 meq ONCE ONE Administration Medical Decision Making Medical Decision Making [facility] Narrative: -patient has hypokalemia, patient's electrolytes must be repleted. If patient's potassium does not improve p.o., EKG shows prolonged QTC, patient will likely be admitted, this time admission considered -we will repeat EKG and labs after repletion. -I was informed that the patient eloped without taking potassium Differential Diagnosis Differential Diagnoses: The differential diagnosis associated with the presentation includes (Hypokalemia) Admission/Observation Consideration of admission/observation: Escalation of care including admission/observation considered Lab Data [facility] Lab Attestation statement: I reviewed the patient's lab results. 01/15/23 22:29 01/15/23 22:29 Labs: Lab Results 01/15/23 01/15/23 01/15/23 Range/Units 22:29 22:29 22:29 WBC 3.8 L (4.8-10.8) X10*3/uL RBC 4.15 L (4.20-5.50) X10*6/uL Hgb 12.7 (12.0-16.0) g/dl Hct 38.1 (37.0-47.0) % MCV 91.8 (80.0-98.0) fL MCH 30.6 (27.0-33.0) pg MCHC 33.3 (31.0-35.0) g/dl RDW 12.0 (11.0-16.0) % Plt Count 278 (160-400) X10*3/uL MPV 8.7 L (9.4-12.3) fL Immature Gran % (Auto) 0.3 (0.0-0.4) % Neut % (Auto) 42.2 L (45-73) % Lymph % (Auto) 40.4 H (20-40) % [place] % (Auto) 11.3 H (2-11) % Eos % (Auto) 4.0 (0-4) % Baso % (Auto) 1.8 (0-2) % Lymph # (Auto) 1.5 (1.2-4.9) X10*3/uL [place] # (Auto) 0.4 (0.1-1.2) X10*3/uL Eos # (Auto) 0.2 (0.0-0.4) X10*3/uL Baso # (Auto) 0.1 (0.0-0.2) X10*3/uL Abs Immat Gran (auto) 0.01 (0.00-0.03) X10*3/uL Absolute Neuts (auto) 1.6 L (2.0-8.3) x10*3/uL Absolute Nucleated RBC 0.000 (0.0-0.012) X10*3/uL Nucleated RBC % (auto) 0.0 (0.0-0.2) /100WBC Sodium 140 (135-145) mmol/L Potassium 2.5 L* D (3.3-5.1) mmol/L Chloride 97 (96-108) mmol/L Carbon Dioxide 34 H (22-29) mmol/L Anion Gap 12 (12-20) BUN 17 H (9-16) mg/dL Creatinine 0.76 (0.5-1.4) mg/dL Estim Creat Clear Calc 52.2 Estimated GFR > 60 Fasting Glucose 80 (60-99) mg/dL Calcium 8.6 (8.4-10.2) mg/dL Magnesium 2.1 (1.6-2.6) mg/dL Total Bilirubin 0.4 (0.0-1.0) mg/dL AST 27 (5-31) U/L ALT 24 (0-31) U/L Alkaline Phosphatase 65 (39-117) U/L Troponin I High Sens < 2.7 (<3.5-17.0) ng/L Total Protein 5.8 L (6.5-8.0) g/dL Albumin 3.7 (3.5-5.0) g/dL Independent Interpretation I performed an independent interpretation of an: EKG Interpretation: Normal sinus rhythm, heart rate 77, C7 depression revision, no T-wave inversion, QTC 488 Critical Care Time Critical Care Time Critical Care Time: Yes Total Critical Care Time: 45 Attestation: I have personally provided critical care time. Time includes review of lab data, radiology results, discussion with consultants, and monitoring for potential decompensation. Intervention performed as documented. Discharge Plan Discharge Clinical Impression: Acute hypokalemia Patient Disposition: Elopement Prescriptions: No Action rosuvastatin 10 mg tablet 10 mg PO BEDTIME escitalopram oxalate 20 mg tablet 20 mg PO DAILY Qty: 30 1RF mirtazapine 15 mg tablet 15 mg PO BEDTIME Qty: 30 1RF quetiapine 200 mg tablet 600 mg PO BEDTIME Qty: 90 1RF quetiapine 100 mg tablet 100 mg PO BID Qty: 60 1RF
[2023-01-16] MEDS: Potassium Chloride Packet 20 MEQ PACKET 100 MEQ PO (00:08)
--- NOTE | 2023-01-16 00:31 | PC.NURSE ---
no chest discomfort, gait steady, no N/V. respiration nonlabored. tolerated Po potassium well.
== END 2023-01-16 00:52 | disposition left against medical advice (07) ==
PROVIDERS: Emergency Provider Emergency Medicine; PCP Family Medicine
DX: E87.6 Hypokalemia (principal); Z79.899 Other long term (current) drug therapy
CPT/HCPCS: 36415; 80053; 83735; 84484; 85025; 93005; 99283; 99284

== ENCOUNTER → 2023-01-15 22:20 | Outpatient (BNV) | payer OTHER, SELFPAY | PROVIDERS: Emergency Provider Emergency Medicine; PCP Family Medicine; Visit Provider Internal Medicine Cardiovascular Disease | DX: R00.2 Palpitations (principal) | CPT/HCPCS: 93010 ==

== ENCOUNTER 2023-01-29 10:57 | Outpatient (AMB) | payer OTHER, SELFPAY ==
--- NOTE | 2023-01-29 10:46 | A.OFFPSYCH_ITS ---
Intake Intake Visit Reasons: Bulimia, Depression Allergies prescription pain killers Allergy (Unknown, Uncoded 12/11/21 12:40) Medication List - Last Reconciled 01/29/23 by Shankar Tom MD escitalopram oxalate 20 mg PO DAILY mirtazapine 15 mg PO BEDTIME quetiapine 600 mg (3 x 200 mg) PO BEDTIME quetiapine 100 mg PO BID rosuvastatin 10 mg PO BEDTIME HPI- Psychiatric Chief Complaint: Bulimia, Depression HPI Narrative: Pt seen in f/u f bulimia has inc potassium recently decreased has been refusing to go to eating dx inpt my plan is to get my shit together states she wants to do this on her own its been somewhat consuming wants to stop on her own current wt 88 lbs interferes with quality of life Has been in touch eating disorder program no longer partial hospital in [facility]. They were recommending inpatient Patient is point has not been willing to do this she does see it as a problem. Has talked to people at [facility] also states she will be seeing her primary care regularly. She done that does understand the potential medical risks She continues to state she is not overly depressed enjoys her work Who we have talked about working with her PCP and dietary to try and target a minimally accepted weight to check electrolytes EKG on a regular basis patient does intermittently binge purge at other times restriction Patient understands she had recent potassium 2.5 has been taking potassium and states she has been managing this with her primary care doctor Cristian Encourage patient to do inpatient treatment given weight loss and electrolyte intermittent abnormalities. Encourage regular monitoring which she states she has set up with Dr. Foster Past Psychiatric History: Patient has a history of abusing substances recurrent depression anxiety longstanding eating disorder history of a past severe suicide attempt by cutting her neck a few years ago ended up on a [address] and has been lot better since that time. Mental Status Exam Mental Status Exam Patient Appearance: Well Grooomed Patient Orientation: Person, Place, Time and Situation Level of Consciousness: Awake Patient Behavior: Appropriate Mood Description: Anxious, Nervous and Apprehensive Affect Description: Anxious and Apprehensive Ability to Follow Directions: Good Speech Pattern: Clear Hallucinations: None Delusions: Not Present Thought Process: Intact Thought Content: positive for Intact, positive for Goal Oriented, negative for S uicidal Ideation or negative for Homicidal Ideation Depressive Symptoms: Increased Anxiety, Feelings of Guilt and Loss of Energy Judgement: Fair Judgement and Insight: Patient is future oriented was not able to take information in regarding chronic risks of her eating disorder she is future oriented some anxiety generally feeling okay she states about her life does wish have a better handle on her disorder but does not wish to go inpatient at this time. Telehealth Telehealth Location of provider rendering services: practice address Location of patient: address on file Patient Identification confirmed using: Name, : Yes Telehealth method: video Patient verbally consented to treatment: Yes Patient verbally consented to billing insurance company: Yes Minutes spent on Phone/Video with Pt.: 33 Assessment and Plan Assessment & Plan (1) Bulimia nervosa: Code(s): F50.2 - Bulimia nervosa (2) Bulimia nervosa in partial remission: Status: Acute Code(s): F50.2 - Bulimia nervosa Plan Monitor labs on a regular basis with patient states she will be seeing her PCP Dr. Foster regularly. She has had hypokalemia on a few occasions encourage eating disorder treatment patient has been in contact with [facility] and trying to range inpatient or outpatient care. No SI mood generally stable Counseling and coordination of Care Pt. Self Management counselin Step program and Nutrition education and im provement Details-Self Mgmt counseling: The issues related to eating disorder triggers urged food log of support group urged counseling through [facility] Medication management counseling: Effectiveness and Side effects Diagnosis and Prognosis Counseling: Problematic behaviors secondary to diagnosis and Adequacy of current interventions Details: I spent [40] minutes reviewing the record, seeing the patient and documenting in the medical record. Counseling provided to the patient/caregiver as outlined below. Addressed patient/caregiver concerns regarding current medication regime including effective adherence. Addressed patient/caregiver concerns regarding diagnosis and prognosis including accuracy of diagnosis, prognosis over time, impact of diagnosis. Addressed patient/caregiver concerns regarding impact of recent stressors. [facility] Medical History (Updated 01/19/23 @ 23:45 by Shankar Tom MD) Compulsive shopping Dyspnea Eating disorder Fatigue Generalized anxiety disorder Neck injury Pneumonitis Polysubstance (including opioids) dependence with physiol dependence Family History (System 12/11/21 @ 12:40 by Adelina Hooper) Mother Dementia Social History: Patient has 2 children works as a [employer] family history of depression and dementia The patient did have COVID and have some residual symptoms Substance History: Patient has a history of abusing substances sedatives Coding Level of Care Code Est Pt Level 3 (62879) Therapy 30m w/E&M (21917) Diagnoses Bulimia nervosa F50.2 Bulimia nervosa in partial remission F50.2
== END 2023-01-29 11:19 | disposition home or self-care (01) ==
LOC: HO.HOP 10:57
PROVIDERS: PCP Family Medicine; Visit Provider Psychiatry & Neurology Psychiatry
DX: F50.2 Bulimia nervosa (principal)
CPT/HCPCS: 90833; 99213

== ENCOUNTER → 2023-01-29 10:57 | Outpatient (BNVA) | payer OTHER, SELFPAY | PROVIDERS: PCP Family Medicine; Visit Provider Psychiatry & Neurology Psychiatry ==

== ENCOUNTER 2023-04-02 12:46 | Outpatient (AMB) | payer OTHER, SELFPAY ==
--- NOTE | 2023-04-02 11:13 | MHC.OFFVISPS ---
Intake Intake Visit Reasons: depression Allergies prescription pain killers Allergy (Unknown, Uncoded 12/11/21 12:40) Medication List - Last Reconciled 04/02/23 by Shankar Tom MD escitalopram oxalate 20 mg PO DAILY mirtazapine 15 mg PO BEDTIME quetiapine 600 mg (3 x 200 mg) PO BEDTIME quetiapine 100 mg PO BID rosuvastatin 10 mg PO BEDTIME HPI- Psychiatric Chief Complaint: depression HPI Narrative: Pt has generally been doing ok mood santos has hx of ed since adol has been doing better with ED had been teased a lot as child re being chubby. Was in grp for ED in yrs past Has periods of no ED has been binge purging few x wk feels motified to stop has been on daily dose potassium mood stable no si able to enjoy things Past Psychiatric History: Patient has a history of abusing substances recurrent depression anxiety longstanding eating disorder history of a past severe suicide attempt by cutting her neck a few years ago ended up on a [address] and has been lot better since that time. Mental Status Exam Mental Status Exam Patient Appearance: Well Grooomed Patient Orientation: Person, Place, Time and Situation Level of Consciousness: Awake Patient Behavior: Appropriate Mood Description: Calm and Appropriate Affect Description: Calm and Relaxed Ability to Follow Directions: Good Speech Pattern: Clear Hallucinations: None Delusions: Not Present Thought Process: Intact Thought Content: positive for Intact, positive for Goal Oriented, negative for Suicidal Ideation or negative for Homicidal Ideation Depressive Symptoms: Increased Anxiety, Feelings of Guilt and Loss of Energy Judgement: Fair Judgement and Insight: Patient is future oriented was not able to take information in regarding chronic risks of her eating disorder she is future oriented some anxiety generally feeling okay she states about her life does wish have a better handle on her disorder but does not wish to go inpatient at this time. Telehealth Telehealth Location of provider rendering services: practice address Location of patient: address on file Patient Identification confirmed using: Name, : Yes Telehealth method: video Patient verbally consented to treatment: Yes Patient verbally consented to billing insurance company: Yes Minutes spent on Phone/Video with Pt.: 25 Assessment and Plan Assessment & Plan (1) Generalized anxiety disorder: Status: Acute Code(s): F41.1 - Generalized anxiety disorder (2) OCD (obsessive compulsive disorder): Status: Acute Code(s): F42.9 - Obsessive-compulsive disorder, unspecified (3) Bulimia nervosa in partial remission: Status: Acute Code(s): F50.2 - Bulimia nervosa (4) Major depression in full remission: Status: Acute Code(s): F32.5 - Major depressive disorder, single episode, in full remission Plan Patient general mood santos has been doing well she states. She he is living alone and her apartment which suits her much better she had difficulty with prior roommate. She seeing her PCP was where her eating disorder she is on potassium supplement. The patient states not having panic attacks has good range of affect and able to enjoy things feels quite good at work did have a a poor experience with [facility]. Patient is open to seeing a therapist or dietitian at specializes in eating disorders and we also discussed anorexia and bulimia meetings that are available virtually online Counseling and coordination of Care Details-Self Mgmt counseling: Discussed strategies for eating disorder binge purge episodes avoiding binge foods patient does seem motivated for health reasons Medication management counseling: Effectiveness and Side effects Diagnosis and Prognosis Counseling: Accuracy of diagnosis and Problematic behaviors secondary to diagnosis Details: I spent [40] minutes reviewing the record, seeing the patient and documenting in the medical record. Counseling provided to the patient/caregiver as outlined below. Addressed patient/caregiver concerns regarding current medication regime including effective adherence. Addressed patient/caregiver concerns regarding diagnosis and prognosis including accuracy of diagnosis, prognosis over time, impact of diagnosis. Addressed patient/caregiver concerns regarding impact of recent stressors. 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
== END 2023-04-02 13:25 | disposition home or self-care (01) ==
LOC: HO.HOP 12:46
PROVIDERS: PCP Family Medicine; Visit Provider Psychiatry & Neurology Psychiatry
DX: F41.1 Generalized anxiety disorder (principal); F42.9 Obsessive-compulsive disorder, unspecified; F50.2 Bulimia nervosa; F32.5 Major depressive disorder, single episode, in full remission
CPT/HCPCS: 90833; 99213

== ENCOUNTER → 2023-04-02 12:46 | Outpatient (BNVA) | payer OTHER, SELFPAY | PROVIDERS: PCP Family Medicine; Visit Provider Psychiatry & Neurology Psychiatry | DX: F41.1 Generalized anxiety disorder (principal); F42.9 Obsessive-compulsive disorder, unspecified; F50.2 Bulimia nervosa; F32.5 Major depressive disorder, single episode, in full remission ==

== ENCOUNTER 2023-05-23 12:04 | Outpatient (AMB) | payer OTHER, SELFPAY ==
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
== END 2023-05-23 12:04 | disposition home or self-care (01) ==
LOC: HO.HOP 12:04
PROVIDERS: PCP Family Medicine; Visit Provider Psychiatry & Neurology Psychiatry
DX: F32.5 Major depressive disorder, single episode, in full remission (principal); F41.1 Generalized anxiety disorder; F42.9 Obsessive-compulsive disorder, unspecified; F50.2 Bulimia nervosa
CPT/HCPCS: 90833; 99213

== ENCOUNTER → 2023-05-23 12:04 | Outpatient (BNVA) | payer OTHER, SELFPAY | PROVIDERS: PCP Family Medicine; Visit Provider Psychiatry & Neurology Psychiatry | DX: D72.819 Decreased white blood cell count, unspecified (principal); F50.2 Bulimia nervosa ==

== ENCOUNTER 2023-07-22 11:41 | Outpatient (AMB) | payer OTHER, SELFPAY ==
--- NOTE | 2023-07-22 11:20 | MHC.OFFVISPS ---
Intake Intake Visit Reasons: depression Allergies prescription pain killers Allergy (Unknown, Uncoded 12/11/21 12:40) HPI- Psychiatric Chief Complaint: depression HPI Narrative: Patient has connected regarding therapy. Has marked been able to significantly cut down any binge purge episodes has been able to increase weight mood has felt more stable less periods of severe anxiety of there is a significant interaction with her eating disorder and triggers. Will then [facility] patient has been working closely with her daughter to try to live healthier life he would better and connecting with treatment continues on Seroquel Remeron have discussed how this may be contributing to urges for eating has been fearful ongoing way to try and taper any medication Past Psychiatric History: Patient has a history of abusing substances recurrent depression anxiety longstanding eating disorder history of a past severe suicide attempt by cutting her neck a few years ago ended up on a [address] and has been lot better since that time. Mental Status Exam Mental Status Exam Patient Appearance: Well Grooomed Patient Orientation: Person, Place, Time and Situation Level of Consciousness: Awake Patient Behavior: Appropriate Mood Description: Calm and Appropriate Affect Description: Calm and Relaxed Ability to Follow Directions: Good Speech Pattern: Clear Hallucinations: None Delusions: Not Present Thought Process: Intact Thought Content: positive for Intact, positive for Goal Oriented, negative for Suicidal Ideation or negative for Homicidal Ideation Depressive Symptoms: Increased Anxiety, Feelings of Guilt and Loss of Energy Judgement: Fair Judgement and Insight: Patient is future oriented was not able to take information in regarding chronic risks of her eating disorder she is future oriented some anxiety generally feeling okay she states about her life does wish have a better handle on her disorder but does not wish to go inpatient at this time. Telehealth Telehealth Location of provider rendering services: practice address Location of patient: address on file Patient Identification confirmed using: Name, : Yes Telehealth method: video Patient verbally consented to treatment: Yes Patient verbally consented to billing insurance company: Yes Minutes spent on Phone/Video with Pt.: 22 Assessment and Plan Assessment & Plan (1) Eating disorder: Status: Acute Code(s): F50.9 - Eating disorder, unspecified (2) Major depression in full remission: Status: Acute Code(s): F32.5 - Major depressive disorder, single episode, in full remission (3) Generalized anxiety disorder: Status: Acute Code(s): F41.1 - Generalized anxiety disorder (4) OCD (obsessive compulsive disorder): Status: Acute Code(s): F42.9 - Obsessive-compulsive disorder, unspecified Plan Check EKG hemoglobin A1c patient is she states regularly monitored by her PCP the patient's mood is generally been stable some periods of anxiety much less in the way of been purging Orders: Orders ECG 12 lead EKG 07/23/23 F50.9 - Eating disorder, unspecified, Z86.39 - Personal history of other endocrine, nutritional and metabolic disease Hemoglobin A1c 07/23/23 F50.9 - Eating disorder, unspecified, Z86.39 - Personal history of other endocrine, nutritional and metabolic disease, R53.83 - Other fatigue TSH reflex Free T4 07/23/23 R53.83 - Other fatigue Magnesium 07/23/23 R53.83 - Other fatigue Comprehensive Met. Panel 07/23/23 R53.83 - Other fatigue Counseling and coordination of Care Pt. Self Management counseling: Nutrition education and improvement, Behavior activation and Cognitive restructuring Medication management counseling: Effectiveness and Side effects Diagnosis and Prognosis Counseling: Impact of diagnosis on life functions and Adequacy of current interventions Details: I spent [25] minutes reviewing the record, seeing the patient and documenting in the medical record. Counseling provided to the patient/caregiver as outlined below. Addressed patient/caregiver concerns regarding current medication regime including effective adherence. Addressed patient/caregiver concerns regarding diagnosis and prognosis including accuracy of diagnosis, prognosis over time, impact of diagnosis. Addressed patient/caregiver concerns regarding impact of recent stressors. 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
== END 2023-07-22 15:29 | disposition home or self-care (01) ==
LOC: HO.HOP 11:41
PROVIDERS: PCP Family Medicine; Visit Provider Psychiatry & Neurology Psychiatry
DX: F50.9 Eating disorder, unspecified (principal); F32.5 Major depressive disorder, single episode, in full remission; F41.1 Generalized anxiety disorder; F42.9 Obsessive-compulsive disorder, unspecified
CPT/HCPCS: 99214

== ENCOUNTER → 2023-07-22 11:41 | Outpatient (BNVA) | payer OTHER, SELFPAY | PROVIDERS: PCP Family Medicine; Visit Provider Psychiatry & Neurology Psychiatry ==

== ENCOUNTER → 2023-07-23 13:41 | Outpatient (REF) | payer OTHER, SELFPAY ==
--- NOTE | 2023-07-23 13:52 | ECG_ITS ---
Test Reason : F50.9 Blood Pressure : / mmHG Vent. Rate : 091 BPM Atrial Rate : 091 BPM P-R Int : 138 ms QRS Dur : 076 ms QT Int : 374 ms P-R-T Axes : 081 079 069 degrees QTc Int : 460 ms Normal sinus rhythm Normal ECG When compared with ECG of 15-JAN-2023 22:20, No significant change was found Referred By: Shankar Tom Electronically Signed By:JOHN SANFORD MD
[2023-07-23 13:53] LABS: MANUAL DIFF FLAG NO
[2023-07-23 14:13] LABS: Basophils Absolute Auto 0.1 X10*3/uL (0.0-0.2); Basophils Percent Auto 0.6 % (0-2); Eosinophils Absolute Auto 0.2 X10*3/uL (0.0-0.4); Hematocrit 46.1 % (37.0-47.0); Hemoglobin 15.3 g/dl (12.0-16.0); Imm Gran Abs Auto 0.04 X10*3/uL (0.00-0.03); Imm Gran Pct Auto 0.4 % (0.0-0.4); Lymphocytes Absolute Auto 2.4 X10*3/uL (1.2-4.9); Lymphocytes Percent Auto 23.5 % (20-40); Mean Corpuscular HGB Conc 33.2 g/dl (31.0-35.0); Mean Corpuscular Hemoglobin 29.3 pg (27.0-33.0); Mean Corpuscular Volume 88.1 fL (80.0-98.0); Mean Platelet Volume 9.2 fL (9.4-12.3); Monocytes Absolute Auto 0.8 X10*3/uL (0.1-1.2); Monocytes Percent Auto 7.4 % (2-11); Neutrophils Absolute Auto 6.8 x10*3/uL (2.0-8.3); Neutrophils Percent Auto 66.1 % (45-73); Platelet Count 389 X10*3/uL (160-400); Red Blood Count 5.23 X10*6/uL (4.20-5.50); Red Cell Distribution Width 13.3 % (11.0-16.0); White Blood Count 10.3 X10*3/uL (4.8-10.8)
[2023-07-23 14:20] LABS: Estimated Average Glucose 97 mg/dL
[2023-07-23 14:49] LABS: Alanine Aminotransferase 26 U/L (0-31); Albumin Level 4.1 g/dL (3.5-5.0); Alkaline Phosphatase 73 U/L (39-117); Anion Gap 11 (12-20); Aspartate Amino Transferase 31 U/L (5-31); Bilirubin Total 0.3 mg/dL (0.0-1.0); Blood Urea Nitrogen 14 mg/dL (9-16); Calcium 9.5 mg/dL (8.4-10.2); Carbon Dioxide 31 mmol/L (22-29); Chloride 98 mmol/L (96-108); Estimated Glomerular Filt Rate > 60; Glucose Random 97 mg/dL (60-115); Magnesium 2.2 mg/dL (1.6-2.6); Potassium 3.5 mmol/L (3.3-5.1); Sodium 136 mmol/L (135-145); Total Protein 6.5 g/dL (6.5-8.0)
[2023-07-23 15:03] LABS: TSH reflex Free T4 1.16 uIU/mL (0.32-4.0)
== END ==
LOC: HO.CARD 13:41
PROVIDERS: PCP Family Medicine; Visit Provider Psychiatry & Neurology Psychiatry
DX: F50.9 Eating disorder, unspecified (principal); F50.2 Bulimia nervosa; D72.819 Decreased white blood cell count, unspecified; R53.83 Other fatigue; Z86.39 Personal history of other endocrine, nutritional and metabolic disease
CPT/HCPCS: 36415; 80053; 83036; 83735; 84443; 85025; 93005

== ENCOUNTER → 2023-07-23 13:52 | Outpatient (BNV) | payer OTHER, SELFPAY | PROVIDERS: PCP Family Medicine; Visit Provider Internal Medicine Cardiovascular Disease | DX: R94.31 Abnormal electrocardiogram [ECG] [EKG] (principal) | CPT/HCPCS: 93010 ==

== ENCOUNTER 2023-09-27 16:55 | Outpatient (AMB) | payer OTHER, SELFPAY ==
--- NOTE | 2023-09-27 11:47 | A.OFFPSYCH_ITS ---
Intake Intake Visit Reasons: depression Allergies prescription pain killers Allergy (Unknown, Uncoded 12/11/21 12:40) Medication List - Last Reconciled 09/27/23 by Shankar Tom MD escitalopram oxalate 20 mg PO DAILY mirtazapine 15 mg PO BEDTIME quetiapine 600 mg (3 x 200 mg) PO BEDTIME quetiapine 100 mg PO BID rosuvastatin 10 mg PO BEDTIME HPI- Psychiatric Chief Complaint: depression HPI Narrative: The patient is a 57-year-old female with history of generalized anxiety chronic eating disorder marked by binge purging. Patient has recently gained appropriate weight has decreased significantly the amount of binge purging that she does recent labs and potassium were within normal limits. The patient has been on mirtazapine Lexapro Seroquel. She has not abused benzodiazepines muscle relaxers or other prescribed medication an extended period of time she is doing well at work patient generally states her mood is stable not overly anxious but has been concerned about going down on Seroquel which remains at 800 mg which she had responded to in the past. She has been stable for an extended period of time no development of diabetes or evidence of tardive dyskinesia Past Psychiatric History: Patient has a history of abusing substances recurrent depression anxiety longstanding eating disorder history of a past severe suicide attempt by cutting her neck a few years ago ended up on a [address] and has been lot better since that time. Mental Status Exam Mental Status Exam Patient Appearance: Well Grooomed Patient Orientation: Person, Place, Time and Situation Level of Consciousness: Awake Patient Behavior: Appropriate Mood Description: Calm and Appropriate Affect Description: Calm and Relaxed Ability to Follow Directions: Good Speech Pattern: Clear Hallucinations: None Delusions: Not Present Thought Process: Intact Thought Content: positive for Intact, positive for Goal Oriented, negative for Suicidal Ideation or negative for Homicidal Ideation Depressive Symptoms: Diff. Making Decisions Judgement: Fair Judgement and Insight: Patient has generally been doing well is frustrated at her ongoing EDC eating disorder and the amount of money that she spends but generally has been doing much better with this over time she states Telehealth Telehealth Location of provider rendering services: practice address Location of patient: address on file Patient Identification confirmed using: Name, : Yes Telehealth method: video Patient verbally consented to treatment: Yes Patient verbally consented to billing insurance company: Yes Minutes spent on Phone/Video with Pt.: 22 Assessment and Plan Assessment & Plan (1) Major depression in full remission: Status: Acute Code(s): F32.5 - Major depressive disorder, single episode, in full remission (2) Generalized anxiety disorder: Status: Acute Code(s): F41.1 - Generalized anxiety disorder (3) OCD (obsessive compulsive disorder): Status: Acute Code(s): F42.9 - Obsessive-compulsive disorder, unspecified (4) Bulimia nervosa in partial remission: Status: Acute Code(s): F50.2 - Bulimia nervosa Plan Patient denies abnormal movements no evidence of oral facial dyskinesia on exam limited by video exam. Patient does not wish to taper down on Seroquel or mirtazapine we have discussed that Seroquel and or mirtazapine could be increasing urges to binge. We discussed strategies to manage this. We will follow labs periodically patient does see her PCP I have encouraged eating disorder support groups and outpatient counseling Counseling and coordination of Care Pt. Self Management counselin Step program and Breathing Details-Self Mgmt counseling: Issues related to management of eating disorder Diagnosis and Prognosis Counseling: Adequacy of current interventions Details-Diagnosis/Prognosis counseling: Issues related to chronic use of Seroquel potential side effects risks benefits risks of continuing and risks of trying a taper Details: I spent [30] minutes reviewing the record, seeing the patient and documenting in the medical record. Counseling provided to the patient/caregiver as outlined below. Addressed patient/caregiver concerns regarding current medication regime including effective adherence. Addressed patient/caregiver concerns regarding diagnosis and prognosis including accuracy of diagnosis, prognosis over time, impact of diagnosis. Addressed patient/caregiver concerns regarding impact of recent stressors. 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
== END 2023-09-27 16:55 | disposition home or self-care (01) ==
LOC: HO.HOP 16:55
PROVIDERS: PCP Family Medicine; Visit Provider Psychiatry & Neurology Psychiatry
DX: F32.5 Major depressive disorder, single episode, in full remission (principal); F41.1 Generalized anxiety disorder; F42.9 Obsessive-compulsive disorder, unspecified; F50.2 Bulimia nervosa
CPT/HCPCS: 99214

== ENCOUNTER → 2023-09-27 16:55 | Outpatient (BNVA) | payer OTHER, SELFPAY | PROVIDERS: PCP Family Medicine; Visit Provider Psychiatry & Neurology Psychiatry ==

== ENCOUNTER 2023-10-11 13:27 | Outpatient (AMB) | payer OTHER, SELFPAY ==
--- NOTE | 2023-10-11 13:45 | A.OFFPSYCH_ITS ---
Intake Intake Visit Reasons: depression Allergies prescription pain killers Allergy (Unknown, Uncoded 12/11/21 12:40) HPI- Psychiatric Chief Complaint: depression Intake Note: Issues related to binge purging HPI Narrative: Patient seen psychiatric follow-up in person. The patient has been somewhat anxious and dysphoric the past few days worried about the fact that her daughter had recently reached out to this business writer to let me know that the patient had been binge purging to a significant amount that she needed to borrow money to enable her to buy food enough for her binge purge episodes. The patient had said that recently she had cut down some but she has not wanted to go inpatient to any inpatient setting and is not currently seeing any outpatient provider with expertise in the treating treatment of eating disorders. We have discussed repeatedly the risks of chronic vomiting including rupture of esophagus metabolic abnormalities EKG abnormalities dental problems and potential risk of sudden . Patient had been reportedly being monitored closely by her primary care but that does not seem to be happening at present time. We have discussed over time trying to taper down on either Seroquel or mirtazapine although the patient had been on Seroquel for an extended period of time in the past without an active eating disorder. Patient is mood has gradually become somewhat more irritable but future oriented PHQ-9 not elevated no thoughts of self-harm. No substance use or misuse Past Psychiatric History: Patient has a history of abusing substances recurrent depression anxiety longstanding eating disorder history of a past severe suicide attempt by cutting her neck a few years ago ended up on a [address] and has been lot better since that time. Mental Status Exam Mental Status Exam Narrative: Somewhat cachectic Patient Appearance: Appropriate Patient Orientation: Person, Place, Time and Situation Level of Consciousness: Awake Patient Behavior: Appropriate and Good Eye Contact Mood Description: Appropriate and Apprehensive Affect Description: Constricted, Anxious and Apprehensive Ability to Follow Directions: Good Speech Pattern: Clear Hallucinations: None Delusions: Not Present Thought Process: Intact Thought Content: positive for Intact, positive for Goal Oriented, negative for Suicidal Ideation or negative for Homicidal Ideation Depressive Symptoms: Diff. Making Decisions Judgement: Fair Judgement and Insight: Patient agreed to let me speak with her children she is resistant to inpatient treatment she was agreeable to getting labs and EKG. Difficulty accepting need for more intensive treatment denies SI does understand medical risks Results Reviewed Results Reviewed: EKG was unremarkable Name: Teena Forbes Age/Sex: 57/F : 1965 Unit#: [id number] Attend Dr: Shankar Tom MD Re10/11/23 Status: DEP [facility]F [facility] Disch: SPEC : [id number] BERONICA: 10/11/23-1411 STATUS: COMP REQ : [id number] RECD: 10/11/23-[address]: Shankar Tom MD COMP: 10/11/23-1628 ENTERED: 10/11/23-[address]: Francie Foster MD ORDERED: CMP, MG Test Result Flag Reference Sodium 137 135-145 mmol/L Potassium 3.6 3.3-5.1 mmol/L CL 93 L 96-108 mmol/L CO2 36 H 22-29 mmol/L Gap 12 12-20 BUN 19 H 9-16 mg/dL Creat 0.77 0.5-1.4 mg/dL EGFR > 60 NOTE: For -Swazi individuals, multiply the result by 1.210. Chronic Kidney Disease: Estimated GFR < 60 mL/min/1.73m2 Severe Kidney Disease: Estimated GFR < 15 mL/min/1.73m2 Glucose, Random 88 60-115 mg/dL CA 9.3 8.4-10.2 mg/dL Magnesium 2.4 1.6-2.6 mg/dL Total Bili 0.2 0.0-1.0 mg/dL AST (GOT) 27 5-31 U/L ALT (GPT) 23 0-31 U/L Protein, Total 6.8 6.5-8.0 g/dL Alb 4.2 3.5-5.0 g/dL Alk Phos 86 39-117 U/L END OF REPORT Assessment and Plan Assessment & Plan (1) Bulimia: Status: Acute Code(s): F50.2 - Bulimia nervosa (2) OCD (obsessive compulsive disorder): Status: Acute Code(s): F42.9 - Obsessive-compulsive disorder, unspecified (3) Generalized anxiety disorder: Status: Acute Code(s): F41.1 - Generalized anxiety disorder (4) Major depressive disorder in partial remission: Status: Acute Code(s): F32.4 - Major depressive disorder, single episode, in partial remission Plan Patient has anxiety regarding lack of control and previously being committed on [address]. She has been doing relatively well mood mood santos but her eating disorder binge purging has taken over and she is living alone and under financial stress with the amount of food that she is buying and purging. EKG was unremarkable she does have an alkalosis Check labs EKG results to juan Foster patient family and this business writer will look into seeing if there is an active eating disorder program patient would prefer outpatient would benefit from inpatient [facility] if fails outpatient treatment Will try and set up meeting by telehealth with the patient and her daughter who has become quite active. Is less secrecy involving the patient's condition and asked her in the past joint support group anorexia and bulimia meeting Monitor medical safety lower mirtazapine 7.5 mg in case this has been a trigger Medications: Changed From mirtazapine 15 mg PO BEDTIME 30 tabs 1RF To mirtazapine 7.5 mg (1/2 x 15 mg) PO BEDTIME 30 tabs 1RF Orders: Orders Vitamin B12 and Folate 10/11/23 F41.1 - Generalized anxiety disorder, F42.9 - Obsessive-compulsive disorder, unspecified, F50.2 - Bulimia nervosa Comprehensive Met. Panel 10/11/23 F41.1 - Generalized anxiety disorder, F42.9 - Obsessive-compulsive disorder, unspecified, F50.2 - Bulimia nervosa ECG 12 lead EKG 10/11/23 F41.1 - Generalized anxiety disorder, F42.9 - Obsessive-compulsive disorder, unspecified, F50.2 - Bulimia nervosa Complete Blood Count Auto Diff 10/11/23 F41.1 - Generalized anxiety disorder, F42.9 - Obsessive-compulsive disorder, unspecified, F50.2 - Bulimia nervosa Counseling and coordination of Care Pt. Self Management counselin Step program, Other self-help group and Nutrition education and improvement Medication management counseling: Effectiveness and Side effects Diagnosis and Prognosis Counseling: Impact of diagnosis on life functions, Problematic behaviors secondary to diagnosis and Adequacy of current interventions Details: I spent [35] minutes reviewing the record, seeing the patient and documenting in the medical record. Counseling provided to the patient/caregiver as outlined below. Addressed patient/caregiver concerns regarding current medication regime including effective adherence. Addressed patient/caregiver concerns regarding diagnosis and prognosis including accuracy of diagnosis, prognosis over time, impact of diagnosis. Addressed patient/caregiver concerns regarding impact of recent stressors. 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
== END 2023-10-11 14:00 ==
LOC: HO.HOP 13:27
PROVIDERS: PCP Family Medicine; Visit Provider Psychiatry & Neurology Psychiatry
DX: F50.2 Bulimia nervosa (principal); F42.9 Obsessive-compulsive disorder, unspecified; F41.1 Generalized anxiety disorder; F32.4 Major depressive disorder, single episode, in partial remission
CPT/HCPCS: 99214

== ENCOUNTER 2023-10-11 13:27 | Outpatient (REF) | payer OTHER, SELFPAY ==
--- NOTE | 2023-10-11 14:10 | ECG_ITS ---
Test Reason : GEN ANX D/O Blood Pressure : / mmHG Vent. Rate : 081 BPM Atrial Rate : 081 BPM P-R Int : 144 ms QRS Dur : 084 ms QT Int : 388 ms P-R-T Axes : 078 078 061 degrees QTc Int : 450 ms Normal sinus rhythm Normal ECG When compared with ECG of 23-JUL-2023 13:51, No significant change was found Referred By: Shankar Tom Electronically Signed By:JILL VALENCIA
[2023-10-11 14:15] LABS: MANUAL DIFF FLAG NO
[2023-10-11 15:16] LABS: Basophils Absolute Auto 0.1 X10*3/uL (0.0-0.2); Basophils Percent Auto 1.3 % (0-2); Eosinophils Absolute Auto 0.2 X10*3/uL (0.0-0.4); Eosinophils Percent Auto 2.9 % (0-4); Hematocrit 43.1 % (37.0-47.0); Hemoglobin 14.2 g/dl (12.0-16.0); Imm Gran Abs Auto 0.03 X10*3/uL (0.00-0.03); Imm Gran Pct Auto 0.4 % (0.0-0.4); Lymphocytes Absolute Auto 2.4 X10*3/uL (1.2-4.9); Lymphocytes Percent Auto 28.8 % (20-40); Mean Corpuscular HGB Conc 32.9 g/dl (31.0-35.0); Mean Corpuscular Hemoglobin 29.3 pg (27.0-33.0); Mean Corpuscular Volume 88.9 fL (80.0-98.0); Mean Platelet Volume 9.2 fL (9.4-12.3); Monocytes Absolute Auto 0.8 X10*3/uL (0.1-1.2); Monocytes Percent Auto 9.7 % (2-11); Neutrophils Absolute Auto 4.7 x10*3/uL (2.0-8.3); Neutrophils Percent Auto 56.9 % (45-73); Platelet Count 397 X10*3/uL (160-400); Red Blood Count 4.85 X10*6/uL (4.20-5.50); Red Cell Distribution Width 13.2 % (11.0-16.0); White Blood Count 8.3 X10*3/uL (4.8-10.8)
[2023-10-11 16:29] LABS: Alanine Aminotransferase 23 U/L (0-31); Albumin Level 4.2 g/dL (3.5-5.0); Alkaline Phosphatase 86 U/L (39-117); Anion Gap 12 (12-20); Aspartate Amino Transferase 27 U/L (5-31); Bilirubin Total 0.2 mg/dL (0.0-1.0); Blood Urea Nitrogen 19 mg/dL (9-16); Calcium 9.3 mg/dL (8.4-10.2); Carbon Dioxide 36 mmol/L (22-29); Chloride 93 mmol/L (96-108); Estimated Glomerular Filt Rate > 60; Glucose Random 88 mg/dL (60-115); Magnesium 2.4 mg/dL (1.6-2.6); Potassium 3.6 mmol/L (3.3-5.1); Sodium 137 mmol/L (135-145); Total Protein 6.8 g/dL (6.5-8.0)
[2023-10-11 20:13] LABS: Folate 11.8 ng/mL (> or = 4.0)
[2023-10-13 00:27] LABS: Vitamin B12 546 pg/mL (200-900)
== END 2023-10-11 13:28 | disposition home or self-care (01) ==
LOC: HO.LAB 13:27
PROVIDERS: PCP Family Medicine; Visit Provider Psychiatry & Neurology Psychiatry
DX: F42.9 Obsessive-compulsive disorder, unspecified (principal); F41.1 Generalized anxiety disorder; F50.2 Bulimia nervosa; R53.83 Other fatigue
CPT/HCPCS: 36415; 80053; 82607; 82746; 83735; 85025; 93005

== ENCOUNTER → 2023-10-11 14:10 | Outpatient (BNV) | payer OTHER, SELFPAY | PROVIDERS: PCP Family Medicine; Visit Provider Internal Medicine | DX: F41.1 Generalized anxiety disorder (principal) | CPT/HCPCS: 93010 ==

== ENCOUNTER 2023-12-23 10:32 | Outpatient (AMB) | payer OTHER, SELFPAY ==
--- NOTE | 2023-12-23 11:08 | MHC.OFFVISPS ---
Intake Intake Visit Reasons: depression Allergies prescription pain killers Allergy (Unknown, Uncoded 12/11/21 12:40) Medication List - Last Reconciled 12/23/23 by Shankar Tom MD escitalopram oxalate 20 mg PO DAILY mirtazapine 7.5 mg (1/2 x 15 mg) PO BEDTIME quetiapine 100 mg PO BID quetiapine 600 mg (3 x 200 mg) PO BEDTIME rosuvastatin 10 mg PO BEDTIME HPI- Psychiatric Chief Complaint: depression HPI Narrative: THE PATIENT IS SEEN WITH HER DAUGHTER states she has generally been stable has not yet engaged with a eating disorder therapist or dietitian but states she has increased her weight and markedly decreased her binge purge episodes. She does see this as a problem and is agreeable to being monitored she has not been agreeable to any outside program. She states work continues to be her salvation, has not wanted to decrease Seroquel or mirtazapine concerns about anxiety we have discussed these medications could be contributing to urges to binge. Past Psychiatric History: Patient has a history of abusing substances recurrent depression anxiety longstanding eating disorder history of a past severe suicide attempt by cutting her neck a few years ago ended up on a [address] and has been lot better since that time. Mental Status Exam Mental Status Exam Narrative: Improved weight and appearance Patient Appearance: Appropriate Patient Orientation: Person, Place, Time and Situation Level of Consciousness: Awake Patient Behavior: Appropriate and Good Eye Contact Mood Description: Appropriate and Apprehensive Affect Description: Anxious and Apprehensive Ability to Follow Directions: Good Speech Pattern: Clear Memory Description: Intact Hallucinations: None Delusions: Not Present Thought Process: Intact Thought Content: positive for Intact, positive for Goal Oriented, negative for Suicidal Ideation or negative for Homicidal Ideation Depressive Symptoms: Diff. Making Decisions Judgement: Fair Judgement and Insight: Patient was agreeable to letting her daughter be part of this appointment she she continues to be resistant to inpatient treatment she was agreeable to getting labs and EKG ongoing. Difficulty accepting need for more intensive treatment denies SI does understand medical risks ongoing Assessment and Plan Assessment & Plan (1) Bulimia nervosa, purging type: Status: Acute Code(s): F50.2 - Bulimia nervosa (2) Generalized anxiety disorder: Status: Acute Code(s): F41.1 - Generalized anxiety disorder (3) OCD (obsessive compulsive disorder): Status: Acute Code(s): F42.9 - Obsessive-compulsive disorder, unspecified (4) Major depressive disorder in partial remission: Status: Acute Code(s): F32.4 - Major depressive disorder, single episode, in partial remission Plan Patient agreeable to labs EKG and to see eating disorder therapist or admitting mom eating disorder based and train dietitian. Patient understands if becomes more symptomatic or medically compromised may need inpatient treatment. Again urged her to see her outpatient primary care physician on a regular basis which she had been doing. Urged online support groups including a and b mtgs and other eating disorder support groups Patient also urged to keep in eating disorder diary a binge purge episodes Orders: Orders Complete Blood Count Auto Diff 12/23/23 F50.2 - Bulimia nervosa ECG 12 lead EKG 12/23/23 F50.2 - Bulimia nervosa Magnesium 12/23/23 F50.2 - Bulimia nervosa Comprehensive Met. Panel 12/23/23 F50.2 - Bulimia nervosa Counseling and coordination of Care Details-Self Mgmt counseling: Extensive discussion regarding management of eating disorder management of binge episodes and purging need for regular monitoring discussed benefits of support group and individual counseling Medication management counseling: Effectiveness and Side effects Diagnosis and Prognosis Counseling: Prognosis over time, Impact of diagnosis on life functions, Problematic behaviors secondary to diagnosis and Adequacy of current interventions Details: I spent [40] minutes reviewing the record, seeing the patient and documenting in the medical record. Counseling provided to the patient/caregiver as outlined below. Addressed patient/caregiver concerns regarding current medication regime including effective adherence. Addressed patient/caregiver concerns regarding diagnosis and prognosis including accuracy of diagnosis, prognosis over time, impact of diagnosis. Addressed patient/caregiver concerns regarding impact of recent stressors. 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
== END 2023-12-23 12:10 | disposition home or self-care (01) ==
LOC: HO.HOP 10:32
PROVIDERS: PCP Family Medicine; Visit Provider Psychiatry & Neurology Psychiatry
DX: F50.2 Bulimia nervosa (principal); F41.1 Generalized anxiety disorder; F42.9 Obsessive-compulsive disorder, unspecified; F32.4 Major depressive disorder, single episode, in partial remission
CPT/HCPCS: 90833; 99213

== ENCOUNTER 2023-12-23 10:32 | Outpatient (REF) | payer OTHER, SELFPAY ==
--- NOTE | 2023-12-23 11:22 | ECG_ITS ---
Test Reason : bulimia Blood Pressure : / mmHG Vent. Rate : 083 BPM Atrial Rate : 083 BPM P-R Int : 134 ms QRS Dur : 084 ms QT Int : 386 ms P-R-T Axes : 076 077 068 degrees QTc Int : 453 ms Normal sinus rhythm Normal ECG When compared with ECG of 11-OCT-2023 14:14, No significant change was found Referred By: Shankar Tom Electronically Signed By:JILL VALENCIA
[2023-12-23 11:23] LABS: MANUAL DIFF FLAG NO
[2023-12-23 12:05] LABS: Basophils Absolute Auto 0.1 X10*3/uL (0.0-0.2); Basophils Percent Auto 1.6 % (0-2); Eosinophils Absolute Auto 0.2 X10*3/uL (0.0-0.4); Eosinophils Percent Auto 3.3 % (0-4); Imm Gran Abs Auto 0.02 X10*3/uL (0.00-0.03); Imm Gran Pct Auto 0.3 % (0.0-0.4); Lymphocytes Absolute Auto 1.8 X10*3/uL (1.2-4.9); Lymphocytes Percent Auto 31.4 % (20-40); Mean Corpuscular HGB Conc 33.3 g/dl (31.0-35.0); Mean Corpuscular Hemoglobin 30.1 pg (27.0-33.0); Mean Corpuscular Volume 90.3 fL (80.0-98.0); Mean Platelet Volume 9.3 fL (9.4-12.3); Monocytes Absolute Auto 0.7 X10*3/uL (0.1-1.2); Monocytes Percent Auto 11.4 % (2-11); Platelet Count 317 X10*3/uL (160-400); Red Blood Count 4.32 X10*6/uL (4.20-5.50); Red Cell Distribution Width 13.4 % (11.0-16.0); White Blood Count 5.8 X10*3/uL (4.8-10.8)
[2023-12-23 12:44] LABS: Alanine Aminotransferase 17 U/L (0-31); Alkaline Phosphatase 66 U/L (39-117); Anion Gap 13 (12-20); Aspartate Amino Transferase 23 U/L (5-31); Bilirubin Total 0.2 mg/dL (0.0-1.0); Blood Urea Nitrogen 19 mg/dL (9-16); Calcium 8.9 mg/dL (8.4-10.2); Carbon Dioxide 31 mmol/L (22-29); Chloride 96 mmol/L (96-108); Estimated Glomerular Filt Rate > 60; Glucose Random 79 mg/dL (60-115); Magnesium 2.1 mg/dL (1.6-2.6); Sodium 137 mmol/L (135-145); Total Protein 6.4 g/dL (6.5-8.0)
== END 2023-12-23 10:33 | disposition home or self-care (01) ==
LOC: HO.LAB 10:32
PROVIDERS: PCP Family Medicine; Visit Provider Psychiatry & Neurology Psychiatry
DX: F50.2 Bulimia nervosa (principal)
CPT/HCPCS: 36415; 80053; 83735; 85025; 93005

== ENCOUNTER → 2023-12-23 11:22 | Outpatient (BNV) | payer OTHER, SELFPAY | PROVIDERS: PCP Family Medicine; Visit Provider Internal Medicine | DX: F50.2 Bulimia nervosa (principal) | CPT/HCPCS: 93010 ==

== ENCOUNTER 2024-02-03 09:53 | Outpatient (REF) | payer OTHER, SELFPAY ==
[2024-02-03 11:50] LABS: Alanine Aminotransferase 17 U/L (0-31); Albumin Level 3.9 g/dL (3.5-5.0); Alkaline Phosphatase 71 U/L (39-117); Anion Gap 13 (12-20); Aspartate Amino Transferase 19 U/L (5-31); Bilirubin Total 0.4 mg/dL (0.0-1.0); Blood Urea Nitrogen 17 mg/dL (9-16); Calcium 10.8 mg/dL (8.4-10.2); Carbon Dioxide 32 mmol/L (22-29); Chloride 93 mmol/L (96-108); Estimated Glomerular Filt Rate > 60; Glucose Random 91 mg/dL (60-115); Potassium 3.3 mmol/L (3.3-5.1); Sodium 135 mmol/L (135-145); Total Protein 6.2 g/dL (6.5-8.0)
[2024-02-03 12:35] LABS: Vitamin D 25-OH Total 62.3 ng/mL (>30)
== END 2024-02-03 09:54 | disposition home or self-care (01) ==
LOC: HO.LAB 09:53
PROVIDERS: PCP Family Medicine; Visit Provider Psychiatry & Neurology Psychiatry
DX: F50.2 Bulimia nervosa (principal); F32.5 Major depressive disorder, single episode, in full remission; F41.1 Generalized anxiety disorder; F42.9 Obsessive-compulsive disorder, unspecified; R53.83 Other fatigue; Z79.899 Other long term (current) drug therapy
CPT/HCPCS: 36415; 80053; 82306

== ENCOUNTER 2024-02-03 10:21 | Outpatient (AMB) | payer OTHER, SELFPAY ==
--- NOTE | 2024-02-03 11:12 | MHC.OFFVISPS ---
Intake Intake Visit Reasons: depression, Eating disorder follow-up Milk Deliverer Required: No Allergies prescription pain killers Allergy (Unknown, Uncoded 12/11/21 12:40) Medication List - Last Reconciled 02/03/24 by Shankar Tom MD escitalopram oxalate 20 mg PO DAILY mirtazapine 7.5 mg (1/2 x 15 mg) PO BEDTIME potassium chloride ER 20 mEq PO BID quetiapine 600 mg (3 x 200 mg) PO BEDTIME quetiapine 100 mg PO BID rosuvastatin 10 mg PO BEDTIME HPI- Psychiatric Chief Complaint: depression, Eating disorder follow-up HPI Narrative: Patient seen psychiatric follow-up patient's potassium was decreased in December call had been placed patient has been taking potassium supplementation previously prescribed by her PCP. She has not been seeing her PCP as previously discussed Francie Foster does agree to have monthly labs. Patient's mood has generally been good her weight she states is around 96-98 lbs she did reportedly find a dietitian that is specializes in eating disorders and understands that she needs help in managing her eating in re committing to dealing with the discomfort of having some sense of fullness in her belly patient has not wanted to go inpatient and has agreed on medical follow-up states she has not been binge purging as regularly understands that this is significant issue she states she has been binge purging perhaps a few times week. 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 Mental Status Exam Mental Status Exam Narrative: Improved weight and appearance On evaluation no evidence of abnormal movement orofacial dyskinesia or other abnormal movement noted on exam Patient Appearance: Appropriate Patient Orientation: Person, Place, Time and Situation Level of Consciousness: Awake Patient Behavior: Appropriate and Good Eye Contact Mood Description: Appropriate and Apprehensive Affect Description: Anxious and Apprehensive Ability to Follow Directions: Good Speech Pattern: Clear Memory Description: Intact Hallucinations: None Delusions: Not Present Thought Process: Intact Thought Content: positive for Intact, positive for Goal Oriented, negative for Suicidal Ideation or negative for Homicidal Ideation Depressive Symptoms: Diff. Making Decisions Judgement: Fair Judgement and Insight: Patient was agreeable to letting her daughter be part of this appointment she she continues to be resistant to inpatient treatment she was agreeable to getting labs and EKG ongoing. Difficulty accepting need for more intensive treatment denies SI does understand medical risks ongoing Assessment and Plan Assessment & Plan (1) Bulimia nervosa, purging type: Status: Acute Code(s): F50.2 - Bulimia nervosa (2) Major depression in full remission: Status: Acute Code(s): F32.5 - Major depressive disorder, single episode, in full remission (3) Generalized anxiety disorder: Status: Acute Code(s): F41.1 - Generalized anxiety disorder (4) OCD (obsessive compulsive disorder): Status: Acute Code(s): F42.9 - Obsessive-compulsive disorder, unspecified Plan lower seroquel 50 bid 600 hs potassium cked this am pt back on potassium tablets urged to see pcp on a regular basis. Will check labs prior to every visit As possible EKG December 22 was normal sinus rhythm QTC unremarkable Orders: Orders Vitamin D 25-OH Total 02/03/24 E55.9 - Vitamin D deficiency, unspecified Counseling and coordination of Care Details-Self Mgmt counseling: Strongly urged patient follow-up with online support groups for eating disorder and reportedly will be seeing an eating disorder dietitian has been resistant to any program referral Details-Med Mgmt counseling: Discussed issues related to long-term use of Seroquel and mirtazapine being held both may be contributing to bingeing urges. We discussed trying to lower Seroquel by 50 mg have repeatedly discussed patient is on 800 mg which is quite a significant dose for without a psychotic disorder not bipolar however she has been stable on this combination medications for a number of years during her last hospitalization has not had any self-harming urges or impulses. No evidence of tardive dyskinesia on exam Diagnosis and Prognosis Counseling: Impact of diagnosis on life functions and Adequacy of current interventions Details: I spent [42] minutes reviewing the record, seeing the patient and documenting in the medical record. Counseling provided to the patient/caregiver as outlined below. Addressed patient/caregiver concerns regarding current medication regime including effective adherence. Addressed patient/caregiver concerns regarding diagnosis and prognosis including accuracy of diagnosis, prognosis over time, impact of diagnosis. Addressed patient/caregiver concerns regarding impact of recent stressors. 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
== END 2024-02-03 17:25 | disposition home or self-care (01) ==
LOC: HO.HOP 10:21
PROVIDERS: PCP Family Medicine; Visit Provider Psychiatry & Neurology Psychiatry
DX: F50.2 Bulimia nervosa (principal); F32.5 Major depressive disorder, single episode, in full remission; F41.1 Generalized anxiety disorder; F42.9 Obsessive-compulsive disorder, unspecified
CPT/HCPCS: 90833; 99213

== ENCOUNTER 2024-03-09 10:28 | Outpatient (REF) | payer OTHER, SELFPAY ==
[2024-03-09 11:27] LABS: MANUAL DIFF FLAG NO
[2024-03-09 11:58] LABS: Basophils Absolute Auto 0.1 X10*3/uL (0.0-0.2); Basophils Percent Auto 1.2 % (0-2); Eosinophils Absolute Auto 0.2 X10*3/uL (0.0-0.4); Eosinophils Percent Auto 3.1 % (0-4); Hematocrit 36.9 % (37.0-47.0); Hemoglobin 12.4 g/dl (12.0-16.0); Imm Gran Abs Auto 0.02 X10*3/uL (0.00-0.03); Imm Gran Pct Auto 0.4 % (0.0-0.4); Lymphocytes Absolute Auto 2.1 X10*3/uL (1.2-4.9); Lymphocytes Percent Auto 40.8 % (20-40); Mean Corpuscular HGB Conc 33.6 g/dl (31.0-35.0); Mean Corpuscular Hemoglobin 29.2 pg (27.0-33.0); Mean Corpuscular Volume 86.8 fL (80.0-98.0); Monocytes Absolute Auto 0.6 X10*3/uL (0.1-1.2); Monocytes Percent Auto 11.6 % (2-11); Neutrophils Absolute Auto 2.2 x10*3/uL (2.0-8.3); Neutrophils Percent Auto 42.9 % (45-73); Platelet Count 265 X10*3/uL (160-400); Red Blood Count 4.25 X10*6/uL (4.20-5.50); White Blood Count 5.2 X10*3/uL (4.8-10.8)
[2024-03-09 13:33] LABS: Alanine Aminotransferase 16 U/L (0-31); Albumin Level 3.8 g/dL (3.5-5.0); Alkaline Phosphatase 72 U/L (39-117); Aspartate Amino Transferase 27 U/L (5-31); Bilirubin Total 0.3 mg/dL (0.0-1.0); Blood Urea Nitrogen 17 mg/dL (9-16); Calcium 8.4 mg/dL (8.4-10.2); Estimated Glomerular Filt Rate > 60; Glucose Random 84 mg/dL (60-115); Total Protein 5.9 g/dL (6.5-8.0)
[2024-03-09 13:41] LABS: Anion Gap 13 (12-20)
[2024-03-09 14:22] LABS: Carbon Dioxide 33 mmol/L (22-29); Chloride 96 mmol/L (96-108); Potassium 2.4 mmol/L (3.3-5.1); Sodium 140 mmol/L (135-145)
== END 2024-03-09 10:29 | disposition home or self-care (01) ==
LOC: HO.LAB 10:28
PROVIDERS: PCP Family Medicine; Visit Provider Psychiatry & Neurology Psychiatry
DX: F50.2 Bulimia nervosa (principal); E55.9 Vitamin D deficiency, unspecified; R53.83 Other fatigue
CPT/HCPCS: 36415; 80053; 82306; 85025

== ENCOUNTER 2024-03-09 10:28 | Outpatient (AMB) | payer OTHER, SELFPAY ==
--- NOTE | 2024-03-09 11:02 | A.OFFPSYCH_ITS ---
Intake Intake Visit Reasons: depression Allergies prescription pain killers Allergy (Unknown, Uncoded 03/09/24 16:32) Unknown Medication List - Last Reconciled 03/09/24 by Shankar Tom MD albuterol sulfate 90 mcg/actuation inhalation escitalopram oxalate 20 mg PO DAILY fluticasone propionate 50 mcg/actuation sprays intranasal mirtazapine 7.5 mg (1/2 x 15 mg) PO BEDTIME potassium chloride ER 20 mEq PO BID quetiapine 600 mg (3 x 200 mg) PO BEDTIME quetiapine 100 mg PO BID rosuvastatin 10 mg PO BEDTIME HPI- Psychiatric Chief Complaint: depression HPI Narrative: Patient seen in psychiatric follow-up states she is 98 lb has been binge purging approximately 1 time day. She did have COVID about month ago. Patient has been seeing an online senior resident care director feels not particularly helpful has been looking into an online IOP for eating disorders. Mood she states has been generally stable and okay Seroquel has been decreased by proximally 100 mg daily. We have discussed over time the potential increase urges to binge with Seroquel and mirtazapine and also potential cardiac issues with Seroquel combined eating disorder. She has been stable on this for a number years. Recently has had to learn electronic health record [facility] has had some problems signing in. Mood she takes stable not overly anxious or dysphoric PHQ-9 and GED reviewed Past Psychiatric History: Patient has a history of abusing substances recurrent depression anxiety longstanding eating disorder history of a past severe suicide attempt by cutting her neck a few years ago ended up on a [address] and has been lot better since that time. Mental Status Exam Mental Status Exam Narrative: Somewhat fatigued On evaluation no evidence of abnormal movement orofacial dyskinesia or other abnormal movement noted on exam Patient Appearance: Appropriate Patient Orientation: Person, Place, Time and Situation Level of Consciousness: Awake Patient Behavior: Appropriate and Good Eye Contact Mood Description: Calm and Appropriate Affect Description: Flat Patient Cognition Impaired: No Ability to Follow Directions: Good Speech Pattern: Clear Memory Description: Intact Hallucinations: None Delusions: Not Present Thought Process: Intact Thought Content: positive for Intact, positive for Goal Oriented, negative for Suicidal Ideation or negative for Homicidal Ideation Depressive Symptoms: Diff. Making Decisions Judgement: Fair Judgement and Insight: Patient did ask this freelance copywriter to sign in a month supply of potassium she had not seen her primary care had recommended she be taking potassium replacement and see her PCP on a regular basis given ongoing eating disorder Results Reviewed Results Reviewed: Reviewed last months potassium new order sent Assessment and Plan Assessment & Plan (1) Bulimia nervosa, purging type: Status: Acute Code(s): F50.2 - Bulimia nervosa (2) Hx of hypokalemia: Status: Acute Code(s): Z86.39 - Personal history of other endocrine, nutritional and metabolic disease (3) Major depression in full remission: Status: Acute Code(s): F32.5 - Major depressive disorder, single episode, in full remission (4) Generalized anxiety disorder: Status: Acute Code(s): F41.1 - Generalized anxiety disorder (5) OCD (obsessive compulsive disorder): Status: Acute Code(s): F42.9 - Obsessive-compulsive disorder, unspecified Plan Patient given 1 month supply of potassium placement per protocol that she had with her primary care asked patient to return to primary care for monitoring check electrolytes per our agreement Medications: New potassium chloride ER 20 mEq PO BID 60 tabs 0RF Orders: Orders Comprehensive Met. Panel 03/09/24 F50.2 - Bulimia nervosa, R53.83 - Other fatigue Complete Blood Count Auto Diff 03/09/24 F50.2 - Bulimia nervosa, R53.83 - Other fatigue Counseling and coordination of Care Details-Self Mgmt counseling: Issues related to chronic eating disorder resistance to more aggressive measures patient states she is motivated Medication management counseling: Effectiveness and Side effects Details-Med Mgmt counseling: No evidence of tardive dyskinesia have encourage gradual decrease of Seroquel over time given longer-term risk no evidence of tardive dyskinesia on exam Diagnosis and Prognosis Counseling: Prognosis over time, Problematic behaviors secondary to diagnosis and Adequacy of current interventions Details-Diagnosis/Prognosis counseling: Discussed need again for some ongoing eating disorder structure try and keep a journal continue monitoring of physical health laboratory evaluation Details: I spent [38] minutes reviewing the record, seeing the patient and documenting in the medical record. Counseling provided to the patient/caregiver as outlined below. Addressed patient/caregiver concerns regarding current medication regime including effective adherence. Addressed patient/caregiver concerns regarding diagnosis and prognosis including accuracy of diagnosis, prognosis over time, impact of diagnosis. Addressed patient/caregiver concerns regarding impact of recent stressors. 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
== END 2024-03-09 13:03 | disposition home or self-care (01) ==
LOC: HO.HOP 10:28
PROVIDERS: PCP Family Medicine; Visit Provider Psychiatry & Neurology Psychiatry
DX: F50.2 Bulimia nervosa (principal); F32.5 Major depressive disorder, single episode, in full remission; F41.1 Generalized anxiety disorder; Z86.39 Personal history of other endocrine, nutritional and metabolic disease
CPT/HCPCS: 90833; 99213

== ENCOUNTER 2024-03-09 16:26 | Emergency (ER) | payer OTHER, SELFPAY ==
[2024-03-09 16:29] VITALS: BP 102/34; PULSE 84; RESP 18; TEMP 36.6; O2SAT 100; BMI 18.2
--- NOTE | 2024-03-09 16:30 | ED.GENADULT ---
HPI - General Adult General Chief complaint: Recheck/Abnormal Lab/Rx Stated complaint: abnormal labs, sent by PCP Related Data Home Medications ?Medication ?Instructions ?Recorded ?Confirmed rosuvastatin 10 mg tablet 10 mg PO BEDTIME 04/17/22 12/23/23 albuterol sulfate 90 mcg/actuation inhalation 03/09/24 03/09/24 aerosol inhaler fluticasone propionate 50 spray intranasal 03/09/24 03/09/24 mcg/actuation nasal spray,suspension Previous Rx's ?Medication ?Instructions ?Recorded mirtazapine 15 mg tablet 7.5 mg (1/2 x 15 mg) PO BEDTIME 12/25/23 #30 tabs quetiapine 100 mg tablet 100 mg PO BID #60 tabs 01/29/24 escitalopram oxalate 20 mg tablet 20 mg PO DAILY #30 tabs 02/27/24 quetiapine 200 mg tablet 600 mg (3 x 200 mg) PO BEDTIME #90 02/27/24 tabs potassium chloride 20 mEq 20 meq PO BID #60 tabs 03/09/24 tablet,extended release Allergies Allergy/AdvReac Type Severity Reaction Status Date / Time prescription pain killers Allergy Unknown Unknown Uncoded 03/09/24 16:32 [facility] Past Medical History Medical History (Updated 03/10/24 @ 00:01 by Mari Dutton) Bulimia nervosa, purging type Hx of hypokalemia Generalized anxiety disorder Compulsive shopping Eating disorder Polysubstance (including opioids) dependence with physiol dependence Neck injury Fatigue Pneumonitis Dyspnea Family History Family History (System 12/11/21 @ 12:40 by Adelina Hooper) Mother Dementia Social History Social History (System 12/11/21 @ 12:40 by Adelina Hooper) Advance Directives: No Advance Directives Information Provided: No Do you have a plan to hurt others: No Plan Physical Exam ED Vital Signs: Vital Signs - 24 hr 03/09/24 16:29 Temperature 98 F Pulse Rate 84 Respiratory Rate 18 Blood Pressure 102/34 L Pulse Oximetry 100 Oxygen Delivery Method Room Air BMI result Body Mass Index 18.2 Course Course Course Narrative: This is a Rapid Medical Examination (RME) performed by Sheron Connor PA-C in triage. Full HPI, ROS, assessment and treatment plan per primary provider in the Main ED. 58 yo female hx of OCD, MDD, polysubstance use, bulimia nervosa here for eval of abnormal lab results. received call from dr. wakefield regarding hypokalemic to 2.1 on routine labs today. reports feeling light headed/ dizzy. no chest pain, palpitations. noncompliant with potassium supplementation at home although reports taking 20meq today after receiving call. + well appearing Plan: labs, ekg Reevaluation(s) Reevaluation #1: Patient left the emergency department before myself or any of the other clinicians could review or explain physical exam findings, test results, need or lack there of for additional testing, treatment options, or a treatment plan. Medical Decision Making Lab Data 03/09/24 16:45 03/09/24 16:45 Labs: Lab Results 03/09/24 Range/Units 16:45 WBC 6.2 (4.8-10.8) X10*3/uL RBC 4.12 L (4.20-5.50) X10*6/uL Hgb 12.4 (12.0-16.0) g/dl Hct 35.6 L (37.0-47.0) % MCV 86.4 (80.0-98.0) fL MCH 30.1 (27.0-33.0) pg MCHC 34.8 (31.0-35.0) g/dl RDW 12.8 (11.0-16.0) % Plt Count 289 (160-400) X10*3/uL MPV 9.0 L (9.4-12.3) fL Immature Gran % (Auto) 0.2 (0.0-0.4) % Neut % (Auto) 45.1 (45-73) % Lymph % (Auto) 38.8 (20-40) % [place] % (Auto) 10.2 (2-11) % Eos % (Auto) 4.1 H (0-4) % Baso % (Auto) 1.6 (0-2) % Lymph # (Auto) 2.4 (1.2-4.9) X10*3/uL [place] # (Auto) 0.6 (0.1-1.2) X10*3/uL Eos # (Auto) 0.3 (0.0-0.4) X10*3/uL Baso # (Auto) 0.1 (0.0-0.2) X10*3/uL Abs Immat Gran (auto) 0.01 (0.00-0.03) X10*3/uL Absolute Neuts (auto) 2.8 (2.0-8.3) x10*3/uL Absolute Nucleated RBC 0.000 (0.0-0.012) X10*3/uL Nucleated RBC % (auto) 0.0 (0.0-0.2) /100WBC Sodium 138 (135-145) mmol/L Potassium 2.8 L* (3.3-5.1) mmol/L Chloride 98 (96-108) mmol/L Carbon Dioxide 31 H (22-29) mmol/L Anion Gap 12 (12-20) BUN 15 (9-16) mg/dL Creatinine 0.90 (0.5-1.4) mg/dL Estim Creat Clear Calc 47.9 Estimated GFR > 60 Random Glucose 92 (60-115) mg/dL Calcium 8.8 (8.4-10.2) mg/dL Magnesium 2.1 (1.6-2.6) mg/dL Total Bilirubin 0.4 (0.0-1.0) mg/dL AST 30 (5-31) U/L ALT 19 (0-31) U/L Alkaline Phosphatase 78 (39-117) U/L Total Protein 6.0 L (6.5-8.0) g/dL Albumin 3.9 (3.5-5.0) g/dL Discharge Plan Discharge Clinical Impression: Low serum potassium level Patient Disposition: Left W/O Completing Treatment Prescriptions: No Action mirtazapine 15 mg tablet 7.5 mg PO BEDTIME Qty: 30 1RF quetiapine 100 mg tablet 100 mg PO BID Qty: 60 1RF escitalopram oxalate 20 mg tablet 20 mg PO DAILY Qty: 30 1RF quetiapine 200 mg tablet 600 mg PO BEDTIME Qty: 90 0RF rosuvastatin 10 mg tablet 10 mg PO BEDTIME fluticasone propionate 50 mcg/actuation spray,suspension intranasal albuterol sulfate 90 mcg/actuation HFA aerosol inhaler inhalation potassium chloride 20 mEq tablet extended release 20 meq PO BID Qty: 60 0RF Discharge Date/Time: 03/09/24 21:17
--- NOTE | 2024-03-09 16:32 | ECG_ITS ---
Test Reason : ABNORMAL LABS Blood Pressure : / mmHG Vent. Rate : 083 BPM Atrial Rate : 083 BPM P-R Int : 136 ms QRS Dur : 084 ms QT Int : 398 ms P-R-T Axes : 077 080 074 degrees QTc Int : 467 ms Normal sinus rhythm Nonspecific ST abnormality Abnormal ECG When compared with ECG of 23-DEC-2023 11:29, Nonspecific ST abnormality is now Present Referred By: Sheri Connor Electronically Signed By:MINERVA RODRIGUEZ
[2024-03-09 16:50] LABS: MANUAL DIFF FLAG NO
[2024-03-09 16:51] LABS: Basophils Absolute Auto 0.1 X10*3/uL (0.0-0.2); Basophils Percent Auto 1.6 % (0-2); Eosinophils Absolute Auto 0.3 X10*3/uL (0.0-0.4); Eosinophils Percent Auto 4.1 % (0-4); Hematocrit 35.6 % (37.0-47.0); Hemoglobin 12.4 g/dl (12.0-16.0); Imm Gran Abs Auto 0.01 X10*3/uL (0.00-0.03); Imm Gran Pct Auto 0.2 % (0.0-0.4); Lymphocytes Absolute Auto 2.4 X10*3/uL (1.2-4.9); Lymphocytes Percent Auto 38.8 % (20-40); Mean Corpuscular HGB Conc 34.8 g/dl (31.0-35.0); Mean Corpuscular Hemoglobin 30.1 pg (27.0-33.0); Mean Corpuscular Volume 86.4 fL (80.0-98.0); Monocytes Absolute Auto 0.6 X10*3/uL (0.1-1.2); Monocytes Percent Auto 10.2 % (2-11); Neutrophils Absolute Auto 2.8 x10*3/uL (2.0-8.3); Neutrophils Percent Auto 45.1 % (45-73); Platelet Count 289 X10*3/uL (160-400); Red Blood Count 4.12 X10*6/uL (4.20-5.50); Red Cell Distribution Width 12.8 % (11.0-16.0); White Blood Count 6.2 X10*3/uL (4.8-10.8)
[2024-03-09 17:13] LABS: Alanine Aminotransferase 19 U/L (0-31); Albumin Level 3.9 g/dL (3.5-5.0); Alkaline Phosphatase 78 U/L (39-117); Anion Gap 12 (12-20); Aspartate Amino Transferase 30 U/L (5-31); Bilirubin Total 0.4 mg/dL (0.0-1.0); Blood Urea Nitrogen 15 mg/dL (9-16); Calcium 8.8 mg/dL (8.4-10.2); Carbon Dioxide 31 mmol/L (22-29); Chloride 98 mmol/L (96-108); Creatinine Clr Calc Pharmacy 47.9; Estimated Glomerular Filt Rate > 60; Glucose Random 92 mg/dL (60-115); Magnesium 2.1 mg/dL (1.6-2.6); Potassium 2.8 mmol/L (3.3-5.1); Sodium 138 mmol/L (135-145)
--- NOTE | 2024-03-09 19:40 | PC.NURSE ---
Pt was not present in the waiting room and/or immediately outside of the ER when called back for a room. RN called the patient's cell phone with no answer, VM left prompting the patient's return for treatment and/or a return phone call
--- NOTE | 2024-03-09 20:29 | PC.NURSE ---
pt was called two additional times with no response at 1951 and 2022
--- NOTE | 2024-03-09 20:39 | PC.NURSE ---
This RN notified provider of patient leave the Ed prior(Vaishali, who advised pt to come in ) to being seen and completing full treatment. This RN was told by the patient she has not been taking her PO potassium at home like she is suppose too, provider also made aware. charge nurse aware provider was notified.
== END 2024-03-09 21:17 | disposition left against medical advice (07) ==
LOC: HO.ED 21:10
PROVIDERS: Physician Assistant Medical; Emergency Provider Emergency Medicine; PCP Family Medicine
DX: E87.6 Hypokalemia (principal); R79.89 Other specified abnormal findings of blood chemistry; R94.31 Abnormal electrocardiogram [ECG] [EKG]; Z79.899 Other long term (current) drug therapy
CPT/HCPCS: 36415; 80053; 83735; 85025; 93005; 99283

== ENCOUNTER 2024-03-13 14:00 | Outpatient (REF) | payer OTHER, SELFPAY ==
--- NOTE | 2024-03-13 14:04 | ECG_ITS ---
Test Reason : BULEMIA Blood Pressure : / mmHG Vent. Rate : 078 BPM Atrial Rate : 078 BPM P-R Int : 140 ms QRS Dur : 078 ms QT Int : 404 ms P-R-T Axes : 079 077 075 degrees QTc Int : 460 ms Normal sinus rhythm Normal ECG When compared with ECG of 09-MAR-2024 16:32, Nonspecific ST abnormality is no longer Present Referred By: Shankar Tom Electronically Signed By:MINERVA RODRIGUEZ
[2024-03-13 15:29] LABS: Alanine Aminotransferase 22 U/L (0-31); Albumin Level 4.1 g/dL (3.5-5.0); Alkaline Phosphatase 78 U/L (39-117); Anion Gap 12 (12-20); Aspartate Amino Transferase 26 U/L (5-31); Bilirubin Total 0.3 mg/dL (0.0-1.0); Blood Urea Nitrogen 15 mg/dL (9-16); Calcium 9.7 mg/dL (8.4-10.2); Carbon Dioxide 33 mmol/L (22-29); Chloride 91 mmol/L (96-108); Estimated Glomerular Filt Rate 51; Glucose Random 80 mg/dL (60-115); Magnesium 2.4 mg/dL (1.6-2.6); Potassium 3.6 mmol/L (3.3-5.1); Sodium 132 mmol/L (135-145); Total Protein 6.5 g/dL (6.5-8.0)
== END 2024-03-13 14:01 | disposition home or self-care (01) ==
LOC: HO.LAB 14:00
PROVIDERS: PCP Family Medicine; Visit Provider Psychiatry & Neurology Psychiatry
DX: F50.2 Bulimia nervosa (principal); Z86.39 Personal history of other endocrine, nutritional and metabolic disease
CPT/HCPCS: 36415; 80053; 83735; 93005

== ENCOUNTER 2024-03-17 10:30 | Outpatient (AMB) | payer OTHER, SELFPAY ==
--- NOTE | 2024-03-17 13:34 | A.OFFPSYCH_ITS ---
Intake Intake Visit Reasons: depression Allergies prescription pain killers Allergy (Unknown, Uncoded 03/09/24 16:32) Unknown HPI- Psychiatric Chief Complaint: depression HPI Narrative: Pt seen in f/u from binge purge disorder pt potassium has in to wnl mood less anxious have discussed with pt possible worsening of binge purge contributed to by mirtazapine and seroquel. Has been fx at work pt urged to see pcp on regular basis again she has been reaching out to get ED therapist. Continues to not be on board with longer term inpt tx . Past Psychiatric History: Patient has a history of abusing substances recurrent depression anxiety longstanding eating disorder history of a past severe suicide attempt by cutting her neck a few years ago ended up on a [address] and has been lot better since that time. Mental Status Exam Mental Status Exam Narrative: On evaluation no evidence of abnormal movement orofacial dyskinesia or other abnormal movement noted on exam as per previous Patient Appearance: Appropriate Patient Orientation: Person, Place, Time and Situation Level of Consciousness: Awake Patient Behavior: Appropriate and Good Eye Contact Mood Description: Appropriate Affect Description: Calm, Appropriate and Apprehensive Patient Cognition Impaired: No Ability to Follow Directions: Good Speech Pattern: Clear Memory Description: Intact Hallucinations: None Delusions: Not Present Thought Process: Intact Thought Content: positive for Intact, positive for Goal Oriented, negative for Suicidal Ideation or negative for Homicidal Ideation Depressive Symptoms: Diff. Making Decisions Judgement: Fair Judgement and Insight: improved agreeable to keeping jnl monthly labs seeing ed therapist online support grp Assessment and Plan Assessment & Plan (1) Bulimia nervosa, purging type: Status: Acute Code(s): F50.2 - Bulimia nervosa (2) Major depression in full remission: Status: Acute Code(s): F32.5 - Major depressive disorder, single episode, in full remission (3) Generalized anxiety disorder: Status: Acute Code(s): F41.1 - Generalized anxiety disorder Plan f/u 4 weeks have discussed need to see ED therapist at minimum for this functional tester typewriters to cont seeing pt mirtazapine 7.5 hs lower seroquel 50 bid urge online ED support groups ck labs monthly Counseling and coordination of Care Details-Self Mgmt counseling: issues related to sam e purge jnl suppoert grp therapist Medication management counseling: Effectiveness and Side effects Diagnosis and Prognosis Counseling: Impact of diagnosis on life functions and Problematic behaviors secondary to diagnosis Details-Diagnosis/Prognosis counseling: pt warned re chronic risks of ed including cardiac sudden in certain circumstances need to make this a priority Details: I spent [] minutes reviewing the record, seeing the patient and documenting in the medical record. Counseling provided to the patient/caregiver as outlined below. Addressed patient/caregiver concerns regarding current medication regime including effective adherence. Addressed patient/caregiver concerns regarding diagnosis and prognosis including accuracy of diagnosis, prognosis over time, impact of diagnosis. Addressed patient/caregiver concerns regarding impact of recent stressors. 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
== END 2024-03-17 11:23 | disposition home or self-care (01) ==
LOC: HO.HOP 10:30
PROVIDERS: PCP Family Medicine; Visit Provider Psychiatry & Neurology Psychiatry
DX: F50.2 Bulimia nervosa (principal); F32.5 Major depressive disorder, single episode, in full remission; F41.1 Generalized anxiety disorder
CPT/HCPCS: 90833; 99213

== ENCOUNTER → 2024-03-17 10:30 | Outpatient (BNVA) | payer OTHER, SELFPAY | PROVIDERS: PCP Family Medicine; Visit Provider Psychiatry & Neurology Psychiatry ==

== ENCOUNTER 2024-03-31 10:26 | Outpatient (AMB) | payer OTHER, SELFPAY ==
--- NOTE | 2024-03-31 11:37 | A.OFFPSYCH_ITS ---
Intake Intake Visit Reasons: depression Allergies prescription pain killers Allergy (Unknown, Uncoded 03/09/24 16:32) Unknown Medication List - Last Reconciled 03/31/24 by Shankar Tom MD albuterol sulfate 90 mcg/actuation inhalation escitalopram oxalate 20 mg PO DAILY fluticasone propionate 50 mcg/actuation sprays intranasal mirtazapine 7.5 mg (1/2 x 15 mg) PO BEDTIME potassium chloride ER 20 mEq PO BID quetiapine 600 mg (3 x 200 mg) PO BEDTIME quetiapine 100 mg PO BID rosuvastatin 10 mg PO BEDTIME HPI- Psychiatric Chief Complaint: depression HPI Narrative: patient has generally been doing okay taking seriously concerns regarding low- potassium. no chest pain palpitations electrolytes checked unremarkable. Patient states she is taking more seriously the fact that she does have an eating disorder. Willing to track triggers excited has reached out to someone that she is hoping that she can see. Trying to work with [employer] mood stable not overly depressed some anxiety no SI no other substance use binge purge episode she stating this point 4 times a week at most once a day which is a major change Past Psychiatric History: Patient has a history of abusing substances recurrent depression anxiety longstanding eating disorder history of a past severe suicide attempt by cutting her neck a few years ago ended up on a [address] and has been lot better since that time. Mental Status Exam Mental Status Exam Patient Appearance: Appropriate Patient Orientation: Person, Place, Time and Situation Level of Consciousness: Awake Patient Behavior: Appropriate and Good Eye Contact Mood Description: Calm and Appropriate Affect Description: Calm, Appropriate and Apprehensive Patient Cognition Impaired: No Ability to Follow Directions: Good Speech Pattern: Clear Memory Description: Intact Hallucinations: None Delusions: Not Present Thought Process: Intact Thought Content: positive for Intact, positive for Goal Oriented, negative for Suicidal Ideation or negative for Homicidal Ideation Depressive Symptoms: Diff. Making Decisions Judgement: Fair Judgement and Insight: Has been reaching out to find therapist improved agreeable to keeping jnl monthly labs seeing ed therapist online support grp Assessment and Plan Assessment & Plan (1) Bulimia nervosa in partial remission: Status: Acute Code(s): F50.2 - Bulimia nervosa (2) OCD (obsessive compulsive disorder): Status: Acute Code(s): F42.9 - Obsessive-compulsive disorder, unspecified (3) Generalized anxiety disorder: Status: Acute Code(s): F41.1 - Generalized anxiety disorder Plan has been trying to taper down on mirtazapine 7.5 mg Seroquel from 100 b.i.d. to 50 b.i.d. and 600 HS patient has been trying to work with [employer] to find eating disorder therapist last potassium check was unremarkable patient is keeping a track of binge purge episodes agreeable to support group online continue to monitor electrolytes Medications: Refilled quetiapine 600 mg (3 x 200 mg) PO BEDTIME 90 tabs 0RF Orders: Orders Comprehensive Met. Panel 03/31/24 F50.2 - Bulimia nervosa Magnesium 03/31/24 F50.2 - Bulimia nervosa Counseling and coordination of Care Pt. Self Management counseling: Other self-help group and Nutrition education and improvement Diagnosis and Prognosis Counseling: Accuracy of diagnosis, Prognosis over time, Problematic behaviors secondary to diagnosis and Adequacy of current interventions Details: I spent [38] minutes reviewing the record, seeing the patient and documenting in the medical record. Counseling provided to the patient/caregiver as outlined below. Addressed patient/caregiver concerns regarding current medication regime including effective adherence. Addressed patient/caregiver concerns regarding diagnosis and prognosis including accuracy of diagnosis, prognosis over time, impact of diagnosis. Addressed patient/caregiver concerns regarding impact of recent stressors. 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
== END 2024-03-31 11:13 | disposition home or self-care (01) ==
LOC: HO.HOP 10:26
PROVIDERS: PCP Family Medicine; Visit Provider Psychiatry & Neurology Psychiatry
DX: F50.02 Anorexia nervosa, binge eating/purging type (principal); F42.9 Obsessive-compulsive disorder, unspecified; F41.1 Generalized anxiety disorder
CPT/HCPCS: 90833; 99213

== ENCOUNTER 2024-03-31 10:26 | Outpatient (REF) | payer OTHER, SELFPAY ==
[2024-03-31 12:59] LABS: Alanine Aminotransferase 26 U/L (0-31); Albumin Level 4.1 g/dL (3.5-5.0); Alkaline Phosphatase 68 U/L (39-117); Anion Gap 12 (12-20); Aspartate Amino Transferase 27 U/L (5-31); Bilirubin Total 0.2 mg/dL (0.0-1.0); Blood Urea Nitrogen 12 mg/dL (9-16); Calcium 9.2 mg/dL (8.4-10.2); Carbon Dioxide 31 mmol/L (22-29); Chloride 100 mmol/L (96-108); Estimated Glomerular Filt Rate > 60; Glucose Random 89 mg/dL (60-115); Magnesium 2.3 mg/dL (1.6-2.6); Potassium 4.1 mmol/L (3.3-5.1); Sodium 139 mmol/L (135-145); Total Protein 6.4 g/dL (6.5-8.0)
== END 2024-03-31 10:27 | disposition home or self-care (01) ==
LOC: HO.LAB 10:26
PROVIDERS: PCP Family Medicine; Visit Provider Psychiatry & Neurology Psychiatry
DX: F50.20 Bulimia nervosa, unspecified (principal)
CPT/HCPCS: 36415; 80053; 83735

== ENCOUNTER 2024-04-28 10:57 | Outpatient (REF) | payer OTHER, SELFPAY ==
[2024-04-28 12:56] LABS: Alanine Aminotransferase 38 U/L (0-31); Albumin Level 4.1 g/dL (3.5-5.0); Alkaline Phosphatase 76 U/L (39-117); Anion Gap 13 (12-20); Aspartate Amino Transferase 31 U/L (5-31); Bilirubin Total 0.2 mg/dL (0.0-1.0); Blood Urea Nitrogen 17 mg/dL (9-16); Calcium 9.7 mg/dL (8.4-10.2); Carbon Dioxide 28 mmol/L (22-29); Chloride 98 mmol/L (96-108); Estimated Glomerular Filt Rate > 60; Glucose Random 92 mg/dL (60-115); Potassium 3.4 mmol/L (3.3-5.1); Sodium 136 mmol/L (135-145); Total Protein 6.8 g/dL (6.5-8.0)
== END 2024-04-28 10:58 | disposition home or self-care (01) ==
LOC: HO.LAB 10:57
PROVIDERS: PCP Family Medicine; Visit Provider Psychiatry & Neurology Psychiatry
DX: F50.20 Bulimia nervosa, unspecified (principal)
CPT/HCPCS: 36415; 80053

== ENCOUNTER 2024-04-28 10:57 | Outpatient (AMB) | payer OTHER, SELFPAY ==
--- NOTE | 2024-04-28 11:13 | MHC.OFFVISPS ---
Intake Intake Visit Reasons: depression Allergies prescription pain killers Allergy (Unknown, Uncoded 03/09/24 16:32) Unknown HPI- Psychiatric Chief Complaint: depression HPI Narrative: Pt had been denied ED coverage hne to primary referral we are trying to figure out referral. Still working at [facility] mother with dementia has been difficult for her to see end stage. Current binge purge about 4 days wk withbinge purge pt aware of chronic vomiting risks .Hasa been working to get ongoing tx for binge purge disorder Past Psychiatric History: Patient has a history of abusing substances recurrent depression anxiety longstanding eating disorder history of a past severe suicide attempt by cutting her neck a few years ago ended up on a [address] and has been lot better since that time. Mental Status Exam Mental Status Exam Narrative: On evaluation no evidence of abnormal movement orofacial dyskinesia or other abnormal movement noted on exam as per previous Patient Appearance: Appropriate Patient Orientation: Person, Place, Time and Situation Level of Consciousness: Awake Patient Behavior: Appropriate and Good Eye Contact Mood Description: Calm and Appropriate Affect Description: Calm and Appropriate Patient Cognition Impaired: No Ability to Follow Directions: Good Speech Pattern: Clear Memory Description: Intact Hallucinations: None Delusions: Not Present Thought Process: Intact Thought Content: positive for Intact, positive for Goal Oriented, negative for Suicidal Ideation or negative for Homicidal Ideation Depressive Symptoms: Diff. Making Decisions Judgement: Fair Judgement and Insight: improved agreeable to keeping jnl monthly labs seeing ed therapist online support grp Assessment and Plan Assessment & Plan (1) Bulimia nervosa in partial remission: Status: Acute Code(s): F50.2 - Bulimia nervosa Assessment and Plan: recommended ed support grp with assignment , lab work working with [facility] for referrals. Plan pt generally doing ok binge purge 4 x wk ck labs again reviewed nursing home risks Orders: Orders Comprehensive Met. Panel 04/28/24 F50.2 - Bulimia nervosa Counseling and coordination of Care Pt. Self Management counseling: Nutrition education and improvement Details-Self Mgmt counseling: Encourage eating disorder log including triggers amount eaten discussed living with uncomfortable feelings somatic santos Medication management counseling: Effectiveness and Side effects Details-Med Mgmt counseling: try and taper down on Seroquel and mirtazapine Details: I spent [39] minutes reviewing the record, seeing the patient and documenting in the medical record. Counseling provided to the patient/caregiver as outlined below. Addressed patient/caregiver concerns regarding current medication regime including effective adherence. Addressed patient/caregiver concerns regarding diagnosis and prognosis including accuracy of diagnosis, prognosis over time, impact of diagnosis. Addressed patient/caregiver concerns regarding impact of recent stressors. [facility] Medical History (Updated 03/10/24 @ 00:01 by Mari Dutton) Bulimia nervosa, purging type Hx of hypokalemia Generalized anxiety disorder Compulsive shopping Eating disorder Polysubstance (including opioids) dependence with physiol dependence Neck injury Fatigue Pneumonitis Dyspnea Family History (System 12/11/21 @ 12:40 by Adelina Hooper) Mother Dementia Social History: Patient has 2 children works as a [employer] family history of depression and dementia The patient did have COVID and have some residual symptoms she is living alone not Substance History: Patient has a history of abusing substances sedatives Trauma History: pos hx Coding Level of Care Code Est Pt Level 3 (74008) Therapy 30m w/E&M (08866) Diagnoses Bulimia nervosa in partial remission F50.2
== END 2024-04-28 12:07 | disposition home or self-care (01) ==
LOC: HO.HOP 10:57
PROVIDERS: PCP Family Medicine; Visit Provider Psychiatry & Neurology Psychiatry
DX: F50.2 Bulimia nervosa (principal)
CPT/HCPCS: 90833; 99213

== ENCOUNTER 2024-06-15 11:16 | Outpatient (AMB) | payer OTHER, SELFPAY ==
--- NOTE | 2024-06-15 11:13 | MHC.OFFVISPS ---
Intake Intake Visit Reasons: depression Allergies prescription pain killers Allergy (Unknown, Uncoded 03/09/24 16:32) Unknown Medication List - Last Reconciled 06/15/24 by Shankar Tom MD albuterol sulfate 90 mcg/actuation inhalation escitalopram oxalate 20 mg PO DAILY fluticasone propionate 50 mcg/actuation sprays intranasal mirtazapine 7.5 mg PO BEDTIME 30 days potassium chloride ER 20 mEq PO BID quetiapine 600 mg (3 x 200 mg) PO BEDTIME quetiapine 50 mg PO BID rosuvastatin 10 mg PO BEDTIME HPI- Psychiatric Chief Complaint: depression HPI Narrative: Pt seen in f/u telehealth APPOINTMENT. The patient has started seeing a psychologist that with eating disorders Dr. Moraima Vieira in [facility]. The patient's weight is 104 lbs. The patient's mood is generally more has also joined a online in disorder support group has been encouraged to go regularly. Patient has reduced number of binge purge episodes she has been cooperative and getting regular lab work. She has not been seeing her primary care regularly and [place] down and be switching to [facility] closer to her house. Seroquel has been lowered by 100 mg daily to 700 mg from 800 mg. Patient denies any abnormal movements that she notes. She is aware of tardive dyskinesia risk elevated blood sugar. Some stress over the holidays and dealing exposure to increase in binge foods. 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 General patient states she is doing well no panic better control of eating disorder able to enjoy things. Past Psychiatric History: Patient has a history of abusing substances recurrent depression anxiety longstanding eating disorder history of a past severe suicide attempt by cutting her neck a few years ago ended up on a [address] and has been lot better since that time. Mental Status Exam Mental Status Exam Narrative: On evaluation no evidence of abnormal movement orofacial dyskinesia or other abnormal movement noted on exam as per previous Patient Appearance: Well Grooomed and Appropriate Patient Orientation: Person, Place, Time and Situation Level of Consciousness: Awake Patient Behavior: Appropriate and Good Eye Contact Mood Description: Calm and Appropriate Affect Description: Calm and Appropriate Patient Cognition Impaired: No Ability to Follow Directions: Good Speech Pattern: Clear Memory Description: Intact Hallucinations: None Delusions: Not Present Thought Process: Intact Thought Content: positive for Intact, positive for Goal Oriented, negative for Suicidal Ideation or negative for Homicidal Ideation Judgement: Good Judgement and Insight: improved agreeable to keeping jnl monthly labs seeing ed therapist online support grp more open to suggestion Telehealth Telehealth Telehealth Platform: [employer] Location of provider rendering services: practice address Location of patient: address on file Patient Identification confirmed using: Name, : Yes Telehealth method: video Patient verbally consented to treatment: Yes Patient verbally consented to billing insurance company: Yes Minutes spent on Phone/Video with Pt.: 20 Assessment and Plan Assessment & Plan (1) Major depression in full remission: Status: Acute Code(s): F32.5 - Major depressive disorder, single episode, in full remission (2) Bulimia nervosa, purging type: Status: Acute Code(s): F50.2 - Bulimia nervosa (3) OCD (obsessive compulsive disorder): Status: Acute Code(s): F42.9 - Obsessive-compulsive disorder, unspecified (4) Generalized anxiety disorder: Status: Acute Code(s): F41.1 - Generalized anxiety disorder Plan sees dr moraima vieira eating dx Medications: Refilled quetiapine 600 mg (3 x 200 mg) PO BEDTIME 90 tabs 0RF Orders: Orders Comprehensive Met. Panel Today F50.2 - Bulimia nervosa Complete Blood Count Auto Diff Today F50.2 - Bulimia nervosa Counseling and coordination of Care Pt. 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 Counseling provided to the patient/caregiver as outlined below. Addressed patient/caregiver concerns regarding current medication regime including effective adherence. Addressed patient/caregiver concerns regarding diagnosis and prognosis including accuracy of diagnosis, prognosis over time, impact of diagnosis. Addressed patient/caregiver concerns regarding impact of recent stressors. 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
== END 2024-06-15 11:30 | disposition home or self-care (01) ==
LOC: HO.HOP 11:16
PROVIDERS: PCP Family Medicine; Visit Provider Psychiatry & Neurology Psychiatry
DX: F32.5 Major depressive disorder, single episode, in full remission (principal); F50.20 Bulimia nervosa, unspecified; F42.9 Obsessive-compulsive disorder, unspecified; F41.1 Generalized anxiety disorder
CPT/HCPCS: 90833; 99213

== ENCOUNTER → 2024-06-15 11:16 | Outpatient (BNVA) | payer OTHER, SELFPAY | PROVIDERS: PCP Family Medicine; Visit Provider Psychiatry & Neurology Psychiatry ==

== ENCOUNTER 2024-06-22 14:09 | Outpatient (REF) | payer OTHER, SELFPAY ==
[2024-06-22 14:20] LABS: MANUAL DIFF FLAG NO
[2024-06-22 15:07] LABS: Basophils Absolute Auto 0.1 X10*3/uL (0.0-0.2); Basophils Percent Auto 1.3 % (0-2); Eosinophils Absolute Auto 0.3 X10*3/uL (0.0-0.4); Eosinophils Percent Auto 3.7 % (0-4); Hematocrit 41.1 % (37.0-47.0); Hemoglobin 13.9 g/dl (12.0-16.0); Imm Gran Abs Auto 0.04 X10*3/uL (0.00-0.03); Imm Gran Pct Auto 0.5 % (0.0-0.4); Lymphocytes Absolute Auto 2.3 X10*3/uL (1.2-4.9); Lymphocytes Percent Auto 28.9 % (20-40); Mean Corpuscular HGB Conc 33.8 g/dl (31.0-35.0); Mean Corpuscular Hemoglobin 28.7 pg (27.0-33.0); Mean Corpuscular Volume 84.7 fL (80.0-98.0); Mean Platelet Volume 9.1 fL (9.4-12.3); Monocytes Absolute Auto 0.8 X10*3/uL (0.1-1.2); Monocytes Percent Auto 10.1 % (2-11); Neutrophils Absolute Auto 4.4 x10*3/uL (2.0-8.3); Neutrophils Percent Auto 55.5 % (45-73); Platelet Count 335 X10*3/uL (160-400); Red Blood Count 4.85 X10*6/uL (4.20-5.50); Red Cell Distribution Width 13.7 % (11.0-16.0); White Blood Count 7.9 X10*3/uL (4.8-10.8)
[2024-06-22 15:45] LABS: Alanine Aminotransferase 25 U/L (0-31); Anion Gap 11 (12-20); Aspartate Amino Transferase 28 U/L (5-31); Bilirubin Total 0.3 mg/dL (0.0-1.0); Blood Urea Nitrogen 17 mg/dL (9-16); Carbon Dioxide 33 mmol/L (22-29); Chloride 101 mmol/L (96-108); Estimated Glomerular Filt Rate > 60; Glucose Random 86 mg/dL (60-115); Potassium 3.1 mmol/L (3.3-5.1); Sodium 142 mmol/L (135-145); Total Protein 6.4 g/dL (6.5-8.0)
[2024-06-22 15:48] LABS: Alkaline Phosphatase 73 U/L (39-117)
== END 2024-06-22 14:10 | disposition home or self-care (01) ==
LOC: HO.LAB 14:09
PROVIDERS: PCP Family Medicine; Visit Provider Psychiatry & Neurology Psychiatry
DX: F50.20 Bulimia nervosa, unspecified (principal)
CPT/HCPCS: 36415; 80053; 85025

== ENCOUNTER 2024-07-01 14:03 | Outpatient (REF) | payer OTHER, SELFPAY | END 2024-07-01 14:04 | disposition home or self-care (01) | LOC: HO.LAB 14:03 | PROVIDERS: PCP Family Medicine; Visit Provider Psychiatry & Neurology Psychiatry | DX: Z13.89 Encounter for screening for other disorder (principal) ==

== ENCOUNTER 2024-07-27 11:05 | Outpatient (AMB) | payer OTHER, SELFPAY ==
--- NOTE | 2024-07-27 11:12 | MHC.OFFVISPS ---
Intake Intake Visit Reasons: depression Allergies prescription pain killers Allergy (Unknown, Uncoded 03/09/24 16:32) Unknown Medication List - Last Reconciled 08/17/24 by Shankar Tom MD albuterol sulfate 90 mcg/actuation inhalation escitalopram oxalate 20 mg PO DAILY fluticasone propionate 50 mcg/actuation sprays intranasal mirtazapine 7.5 mg PO BEDTIME 30 days potassium chloride ER 20 mEq PO BID quetiapine 600 mg (3 x 200 mg) PO BEDTIME quetiapine 50 mg PO BID rosuvastatin 10 mg PO BEDTIME HPI- Psychiatric Chief Complaint: depression HPI Narrative: Pt has been doing she thinks well more active physically doing stairs taking multivit vit d 108 lbs lowest wt 87 keeoing track of binge purge at this pt 1-2 x week sees son regularly . 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 Past Psychiatric History: Patient has a history of abusing substances recurrent depression anxiety longstanding eating disorder history of a past severe suicide attempt by cutting her neck a few years ago ended up on a [address] and has been lot better since that time. Mental Status Exam Mental Status Exam Narrative: On evaluation no evidence of abnormal movement orofacial dyskinesia or other abnormal movement noted on exam as per previous Patient Appearance: Well Grooomed and Appropriate Patient Orientation: Person, Place, Time and Situation Level of Consciousness: Awake Patient Behavior: Appropriate and Good Eye Contact Mood Description: Calm and Appropriate Affect Description: Calm and Appropriate Patient Cognition Impaired: No Ability to Follow Directions: Good Speech Pattern: Clear Memory Description: Intact Hallucinations: None Delusions: Not Present Thought Process: Intact Thought Content: positive for Intact, positive for Goal Oriented, negative for Suicidal Ideation or negative for Homicidal Ideation Judgement: Good Judgement and Insight: improved agreeable to keeping jnl monthly labs seeing ed therapist online support grp more open to suggestion Telehealth Telehealth Telehealth Platform: [facility] Location of provider rendering services: practice address Location of patient: address on file Patient Identification confirmed using: Name, : Yes Telehealth method: video Patient verbally consented to treatment: Yes Patient verbally consented to billing insurance company: Yes Minutes spent on Phone/Video with Pt.: 20 Assessment and Plan Assessment & Plan (1) Generalized anxiety disorder: Status: Acute Code(s): F41.1 - Generalized anxiety disorder (2) Bulimia nervosa, purging type: Status: Acute Code(s): F50.2 - Bulimia nervosa Plan pt s mood much improved reportedly 3 binge purge wk cont tx plan try and taper seroquel gradually and mirtazapine to decrease binge drive also discussed online support group for binge purge disorder ck labs monthly Orders: Orders Comprehensive Met. Panel 2 Weeks F50.2 - Bulimia nervosa Magnesium 2 Weeks F50.2 - Bulimia nervosa Counseling and coordination of Care Details: I spent [] minutes reviewing the record, seeing the patient and documenting in the medical record. Counseling provided to the patient/caregiver as outlined below. Addressed patient/caregiver concerns regarding current medication regime including effective adherence. Addressed patient/caregiver concerns regarding diagnosis and prognosis including accuracy of diagnosis, prognosis over time, impact of diagnosis. Addressed patient/caregiver concerns regarding impact of recent stressors. [facility] Medical History (Updated 03/10/24 @ 00:01 by Mari Dutton) Bulimia nervosa, purging type Hx of hypokalemia Generalized anxiety disorder Compulsive shopping Eating disorder Polysubstance (including opioids) dependence with physiol dependence Neck injury Fatigue Pneumonitis Dyspnea Family History (System 12/11/21 @ 12:40 by Adelina Hooper) Mother Dementia Social History: Patient has 2 children works as a [employer] family history of depression and dementia The patient did have COVID and have some residual symptoms she is living alone not Substance History: Patient has a history of abusing substances sedatives Trauma History: pos hx Coding Level of Care Code Tele Est Pt Level 4 (46907) Diagnoses Generalized anxiety disorder F41.1 Bulimia nervosa, purging type F50.2
--- OUTSIDE RECORDS SUMMARY | 2024-07-27 12:17 | XMS_ITS | Continuity of Care Document ---
Author Organization [facility] Address [address] [place] [address]- Care Team Providers Care Special Agent Name Role Phone Cristian DYER, Francie Whitaker Primary Care Physician Encounter [facility] Date(s): 06/20/24 - 07/20/24 [facility] [address] [place] [id number] Encounter Type: Triage Allergies, Adverse Reactions, Alerts Substance Criticality Severity Reaction Reaction Severity Status gabapentin Active Soma Active clonazePAM Active oxyCODONE Active Immunizations Given and Recorded Vaccine Date Status Refusal Reason SARS-CoV-2(COVID-19)mRNA-LNP vac([id number]) 06/05/23 Recorded influenza virus vaccine, inactivated 03/28/23 Osvaldo rded influenza virus vaccine, inactivated 03/16/22 Osvaldo rded influenza virus vaccine, inactivated 1 03/21/20 Gi nacho influenza virus vaccine, inactivated 04/15/18 Osvaldo rded influenza virus vaccine, inactivated 03/24/18 Osvaldo rded influenza virus vaccine, inactivated 2 04/12/17 Gi nacho influenza virus vaccine, inactivated 3 04/02/16 Re corded influenza virus vaccine, inactivated 4 04/08/15 Re corded influenza virus vaccine, inactivated 03/23/14 Give n influenza virus vaccine, inactivated 03/12/13 Give n influenza virus vaccine, inactivated 5 05/14/12 Gi nacho influenza virus vaccine, inactivated 04/16/11 Give n [id number] 12y+ bivalent booster vax 03/16/22 Recorded SARS-CoV-2 (COVID-19) mRNA-1273 vaccine 06/12/21 R ecorded SARS-CoV-2 (COVID-19) mRNA-1273 vaccine 08/21/20 R ecorded SARS-CoV-2 (COVID-19) mRNA-1273 vaccine 07/19/20 R ecorded pneumococcal 23-valent vaccine 6 06/03/20 Given Influenza Virus Vaccine (oldterm) 03/24/19 Recorde d hepatitis B adult vaccine 7 08/29/12 Given hepatitis B adult vaccine 8 08/01/12 Given hepatitis B adult vaccine 07/01/12 Given tetanus/diphtheria/pertussis, acel(Tdap) 9 05/14/12 Given Tet/Diphth/Acel, Pertussis (oldterm) 07/19/08 Give n tetanus-diphtheria toxoids (Td) 06/24/96 Given 1Result Comment: [facility]:[id number] 2Result Comment: [04/12/2017] [facility] [id number] 3Location History: [facility] [place] 4Result Comment: [04/08/2015] GIVEN AT [facility] 5Admin Note: Received elsewhere 6Early/Late Reason: Early/Late Reason: Other : Med brought up late 7Admin Note: # 3 8Admin Note: #2 9Admin Note: Received elsewhere Medications Albuterol (Eqv-ProAir HFA) 90 mcg/inh inhalation aerosol 1 puffs, Inhalation, Every 6 hours, PRN NEEDED FOR COUGH OR FOR SHORTNESS OF BREATH, # 8.5 Gm, 0Refills, Maintenance, 03/04/24 5:05:00 PM EDT, [facility] # [facility], 25, INJHALE ONE PUFF EVERY 6 HOURS NEEDED FOR COUGH OR FOR SHORTNESS OF BREATH, 160, cm, 02/20/24 10:18:00 EDT, Height, 46.5, kg,02/20/24 10:18:00 EDT, Dry Weight Start Date: 03/04/24 Status: Ordered Quantity: 8.5 Unit: g Repeat number: 1 escitalopram 20 mg oral tablet 1 tablet = 20 mg, By Mouth, Daily, # 8 tablet, 0 Refills, Maintenance, 06/08/20 9:12:00 AM EST, Tablet, Partial fill upon patient request if the prescription is for a schedule II opioid drug. Start Date: 06/08/20 Stop Date: 06/16/20 Status: Ordered Quantity: 8.0 Unit: tablet Repeat number: 1 fluticasone 50 mcg/inh nasal spray See Instructions, INHALE ONE SPRAY IN EACH NOSTRIL TWO TIMES A DAY, # 16 Gm, 2 Refills, Maintenance, 06/22/24 6:45:00 AM EST, [facility] # [facility], 30, INHALE ONE SPRAY IN EACH NOSTRIL TWO TIMES A DAY, 160, cm, 02/20/24 10:18:00 EDT, Height, 46.5, kg, 02/20/24 10:18:00 EDT, Dry Weight Start Date: 06/22/24 Status: Ordered Quantity: 16.0 Unit: g Repeat number: 3 ibuprofen 600 mg oral tablet 600 mg, 1, tablet, By Mouth, 3 times a day, PRN, # 24 tablet, Refills 0, Tot. Refills 0, Maintenance, Pain , Mild, 06/08/20 9:24:00 AM EST, [facility] Requisition, Partial fill upon patient request if theprescription is for a schedule II opioid drug. Start Date: 06/08/20 Stop Date: 06/16/20 Status: Ordered Quantity: 24.0 Unit: tablet Repeat number: 1 mirtazapine 15 mg oral tablet 1 tablet = 15 mg, By Mouth, Daily at bedtime, # 8 tablet, 0 Refills, Maintenance, 06/08/20 8:49:00 AM EST, Tablet, please cancel all prior Mirtazapine prescriptions Start Date: 06/08/20 Stop Date: 06/16/20 Status: Ordered Quantity: 8.0 Unit: tablet Repeat number: 1 multivitamin with minerals Multiple Vitamins with Minerals oral tablet 1 tablet, By Mouth, Daily, # 30 tablet, 0 Refills, Maintenance, 06/08/20 9:06:00 AM EST, Tablet, Partial fill upon patient request if the prescription is for a schedule II opioid drug. Start Date: 06/08/20 Status: Ordered Quantity: 30.0 Unit: tablet Repeat number: 1 permethrin 5% topical cream 1 application, Topically, Once, Apply to skin from head to soles. Leave on 8-10 hours then wash off. Repeat in 1 week, # 60 mL, 1 Refills, Soft Stop, 05/01/21 1:00:00 PM EST, Lotion, [facility] # [facility], Partial fill upon patient request if the prescription is for a schedule II opioid drug., 1 application Topically Once,Instr:Apply to skin from head to soles. Leave on 8-10 hours then wash off. Repeat in 1 week, 160, cm, 01/17/21 10:43:00 EDT, Height, 54.5, kg, 01/11/21 10:02:00 EDT, Dry Weight Start Date: 05/01/21 Status: Ordered Quantity: 60.0 Unit: mL Repeat number: 2 potassium chloride 20 mEq oral tablet, extended release 1 tablet = 20 mEq, By Mouth, 2 times a day, # 60 tablet, 5 Refills, Maintenance, 01/31/23 10:28:00 AM EDT, ER Tablet, [facility] # [facility], Partial fill upon patient request if the prescription is for a schedule II opioid drug., 160, cm, 01/31/23 10:18:00 EDT, Height Start Date: 01/31/23 Stop Date: 07/30/23 Status: Ordered Quantity: 60.0 Unit: tablet Repeat number: 6 rosuvastatin 10 mg oral tablet 1 tablet, By Mouth, Daily, # 30 tablet, 5 Refills, Maintenance, 03/21/23 6:58:00 AM EDT, [facility] # [facility], 160, cm, 01/31/23 10:18:00 EDT, Height Start Date: 03/21/23 Status: Ordered Quantity: 30.0 Unit: tablet Repeat number: 1 Seroquel 300 mg oral tablet 1 tablet = 300 mg, By Mouth, Daily at bedtime, # 90 tablet, 3 Refills, Maintenance, 12/27/11 11:22:52AM EDT, Tablet Start Date: 12/27/11 Stop Date: 12/21/12 Status: Ordered Quantity: 90.0 Unit: tablet Repeat number: 4 Problem List Condition Confirmation Course Effective Dates Status H ealth Status Informant Abuse of laxatives Confirmed Active Anemia Confirmed Active Anorexia Confirmed Active Bulimia nervosa Confirmed Active Chronic vomiting Confirmed Active Constipation Confirmed Active Depression Confirmed Active Hypercholesterolemia Confirmed Active Hypokalemia Confirmed Active Opiate misuse Confirmed Active Tennis elbow Confirmed Active Underweight Confirmed Active Excessive vomiting Confirmed Active Social History Social History Type Response Smoking Status Former smoker; Other : Quit ; entered on: 09/13/14 Sex Sex Representation Female (finding) Patient Care team information Care Team Personnel Name: Indy Ray RN Position: [facility] SN RN Member Role: Primary Care Nurse Name: Francie Foster MD Position: [facility] Physician - Primary Care Member Role: PCP Address: [address] [place] [address] Telecom: Name: Olivia Wagner RN Position: [facility] RN Member Role: Primary Care Nurse Name: Kathie Menjivar RN Position: [facility] RN Member Role: Primary Care Nurse Name: Amanda Luna RN Position: [facility] RN Member Role: Primary Care Nurse Name: Lilibeth Logan RN Position: [facility] SN RN Member Role: Primary Care Nurse Name: Dora Bill RN Position: [facility] SN RN Member Role: Primary Care Nurse Name: Beba Holder RN Position: [facility] RN Member Role: Primary Care Nurse Name: Ly Zhong RN Position: [facility] RN Member Role: Primary Care Nurse Name: Kathy Vasquez RN Position: [facility] RN Member Role: Primary Care Nurse Care Team Related Persons Name: MILTON PATEL Name: MICAELA BLUM Name: ERIKA HOFFMAN Name: JCARLOS KIMBLE Insurance Providers [facility] Information #: 1 Payer: [facility] Member Number: NA Policy Number: NA Group Number: NA
== END 2024-07-27 12:22 | disposition home or self-care (01) ==
LOC: HO.HOP 11:05
PROVIDERS: PCP Family Medicine; Visit Provider Psychiatry & Neurology Psychiatry
DX: F41.1 Generalized anxiety disorder (principal); F50.81 Binge eating disorder
CPT/HCPCS: 99214

== ENCOUNTER → 2024-07-27 11:05 | Outpatient (BNVA) | payer OTHER, SELFPAY | PROVIDERS: PCP Family Medicine; Visit Provider Psychiatry & Neurology Psychiatry ==

== ENCOUNTER 2024-09-11 10:06 | Outpatient (REF) | payer OTHER, SELFPAY ==
[2024-09-11 12:20] LABS: Alanine Aminotransferase 28 U/L (0-31); Albumin Level 3.7 g/dL (3.5-5.0); Alkaline Phosphatase 70 U/L (39-117); Anion Gap 10 (12-20); Aspartate Amino Transferase 27 U/L (5-31); Bilirubin Total 0.1 mg/dL (0.0-1.0); Blood Urea Nitrogen 17 mg/dL (9-16); Calcium 8.9 mg/dL (8.4-10.2); Carbon Dioxide 32 mmol/L (22-29); Chloride 101 mmol/L (96-108); Estimated Glomerular Filt Rate > 60; Glucose Random 61 mg/dL (60-115); Potassium 3.1 mmol/L (3.3-5.1); Sodium 140 mmol/L (135-145); Total Protein 6.1 g/dL (6.5-8.0)
== END 2024-09-11 10:07 | disposition home or self-care (01) ==
LOC: HO.LAB 10:06
PROVIDERS: PCP Psychiatry & Neurology Psychiatry; Visit Provider Family Medicine
DX: F50.20 Bulimia nervosa, unspecified (principal); F32.4 Major depressive disorder, single episode, in partial remission
CPT/HCPCS: 36415; 80053; 83735

== ENCOUNTER 2024-09-29 14:09 | Outpatient (REF) | payer OTHER, SELFPAY ==
[2024-09-29 16:32] LABS: Alanine Aminotransferase 29 U/L (0-31); Albumin Level 4.1 g/dL (3.5-5.0); Alkaline Phosphatase 77 U/L (39-117); Anion Gap 12 (12-20); Aspartate Amino Transferase 37 U/L (5-31); Bilirubin Total 0.3 mg/dL (0.0-1.0); Blood Urea Nitrogen 19 mg/dL (9-16); Calcium 9.6 mg/dL (8.4-10.2); Carbon Dioxide 33 mmol/L (22-29); Chloride 93 mmol/L (96-108); Estimated Glomerular Filt Rate > 60; Glucose Random 94 mg/dL (60-115); Magnesium 2.3 mg/dL (1.6-2.6); Potassium 3.8 mmol/L (3.3-5.1); Sodium 134 mmol/L (135-145); Total Protein 6.4 g/dL (6.5-8.0)
== END 2024-09-29 14:10 | disposition home or self-care (01) ==
LOC: HO.LAB 14:09
PROVIDERS: PCP Family Medicine; Visit Provider Psychiatry & Neurology Psychiatry
DX: F50.20 Bulimia nervosa, unspecified (principal); F32.4 Major depressive disorder, single episode, in partial remission
CPT/HCPCS: 36415; 80053; 83735

== ENCOUNTER 2024-10-26 10:41 | Outpatient (REF) | payer OTHER, SELFPAY ==
[2024-10-26 10:59] LABS: MANUAL DIFF FLAG NO
[2024-10-26 11:27] LABS: Basophils Absolute Auto 0.1 X10*3/uL (0.0-0.2); Eosinophils Absolute Auto 0.3 X10*3/uL (0.0-0.4); Eosinophils Percent Auto 2.7 % (0-4); Hematocrit 44.6 % (37.0-47.0); Imm Gran Abs Auto 0.04 X10*3/uL (0.00-0.03); Imm Gran Pct Auto 0.4 % (0.0-0.4); Mean Corpuscular HGB Conc 33.6 g/dl (31.0-35.0); Mean Corpuscular Hemoglobin 29.6 pg (27.0-33.0); Monocytes Absolute Auto 0.6 X10*3/uL (0.1-1.2); Neutrophils Absolute Auto 6.1 x10*3/uL (2.0-8.3); Neutrophils Percent Auto 66.9 % (45-73); Platelet Count 413 X10*3/uL (160-400); Red Blood Count 5.07 X10*6/uL (4.20-5.50); Red Cell Distribution Width 13.2 % (11.0-16.0); White Blood Count 9.1 X10*3/uL (4.8-10.8)
[2024-10-26 12:10] LABS: Anion Gap 11 (12-20)
--- OUTSIDE RECORDS SUMMARY | 2024-10-26 12:11 | XMS_ITS | Continuity of Care Document ---
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 Name Role Phone Francie Foster MD Primary Care Physician Encounter 10/15/24 - 10/22/24 [facility] [address], [address] [place] [address]- Attending Physician: Francie Foster MD Admitting Physician: Gab SMITH, Sandi Kenyon Referring Physician: Francie Foster MD Encounter Type: OutPatient One Time Allergies, Adverse Reactions, Alerts Substance Criticality Severity Reaction Reaction Severity Status gabapentin Active Soma Active clonazePAM Active oxyCODONE Active Immunizations Given and Recorded Vaccine Date Status Refusal Reason SARS-CoV-2(COVID-19)mRNA-LNP vac([id number]) 06/05/23 Recorded influenza virus vaccine, inactivated 03/28/23 [...] influenza virus vaccine, inactivated 04/16/11 Give n [id number] 12y+ bivalent booster vax 03/16/22 Recorded SARS-CoV-2 [...] tetanus-diphtheria toxoids (Td) 06/24/96 Given 1Result Comment: [facility]:[id number] 2Result Comment: [04/12/2017] [facility] [id number] 3Location History: [facility] [place] 4Result Comment: [04/08/2015] GIVEN AT [facility] IN [facility] 5Admin Note: Received elsewhere 6Early/Late Reason: Early/Late Reason: Other : Med brought up late 7Admin Note: # 3 8Admin Note: #2 9Admin Note: Received elsewhere Medications Albuterol (Eqv-ProAir HFA) 90 mcg/inh inhalation aerosol 1 puffs, Inhalation, Every 6 hours, PRN NEEDED FOR COUGH OR FOR SHORTNESS OF BREATH, # 8.5 Gm, 0Refills, Maintenance, 03/04/24 5:05:00 PM EDT, [facility], 25, INJHALE ONE PUFF [...] Soft Stop, 05/01/21 1:00:00 PM EST, Lotion, [facility], Partial fill upon patient [...] Maintenance, 01/31/23 10:28:00 AM EDT, ER Tablet, [facility], Partial fill upon patient request if the prescription is for a schedule II opioid drug., 160, cm, 01/31/23 10:18:00 EDT, Height Start Date: 01/31/23 Stop Date: 07/30/23 Status: Ordered Quantity: 60.0 Unit: tablet Repeat number: 6 rosuvastatin 10 mg oral tablet 1 tablet, By Mouth, Daily, # 30 tablet, 5 Refills, Maintenance, 03/21/23 6:58:00 AM EDT, [facility], 160, cm, 01/31/23 10:18:00 [...] Underweight Confirmed Active Excessive vomiting Confirmed Active Results Radiology Reports * Exam Date Time Procedure Performing Provider Status 10/15/24 9:25 AM MM Digital Mammo Screening Ada Mcrae; Auth (Verified) Notes: (MM Digital Mammo Screening) Reason For Exam: Screening RESULT: MM Digital Mammo Screening PROCEDURE: MM Digital Mammo Screening INDICATION: Screening for breast cancer. No known palpable abnormalities. Patient indicates a weight loss of over 25 pounds since prior mammogram. COMPARISON: Priors dating back to 11/15/2015, most recent 09/28/2020 TECHNIQUE: Full-field digital CC and MLO 3D tomosynthesis images of both breasts were acquired. Computer-aided detection (CAD) was utilized in the interpretation of this study. DENSITY: The breasts are heterogeneously dense, which may obscure small masses. FINDINGS: No suspicious masses, suspicious microcalcifications, or areas of architectural distortion are seen in either breast to suggest malignancy. IMPRESSION: No mammographic evidence of malignancy. RECOMMENDATION: Annual mammographic screening BI-RADS: 1 (Negative) Lay letter mailed to patient WSN: [id number] Ordering Physician: Sandi De Guzman Dictated By: Pearl Kumar MD Dictated Date/Time: 10/15/24 5:08 pm Reviewed By: Pearl Kumar MD Signed By: Pearl Kumar MD Signed Date/Time: 10/15/24 5:08 pm Transcribed By: CORY Polysomnography Tech Date/Time: 10/15/24 5:05 pm Birads: Social History Social History Type Response Smoking Status Former smoker; Other : Quit ; entered on: 09/13/14 Sex Sex Representation Female (finding) Patient Care team information Care Team Personnel Name: Indy Ray RN Position: [facility] RN Member Role: Primary Care Nurse Name: Francie Foster MD Position: [facility] Physician - Primary Care Member Role: PCP Address: [address] [place] [address] [place] [address]- Telecom: Name: Olivia Wagner RN Position: S RN Member Role: Primary Care Nurse Name: Kathie Menjivar RN Position: [facility] RN Member Role: Primary Care Nurse Name: Amanda Luna RN Position: [facility] RN Member Role: Primary Care Nurse Name: Lilibeth Logan RN Position: [facility] SN RN Member Role: Primary Care Nurse Name: Beba Holder RN Position: [facility] RN Member Role: Primary Care Nurse Name: Ly Zhong RN Position: [facility] RN Member Role: Primary Care Nurse Name: Kathy Vasquez RN Position: [facility] RN Member Role: Primary Care Nurse Care Team Related Persons Name: MILTON PATEL Name: MICAELA BLUM Name: ERIKA HOFFMAN Name: JCARLOS KIMBLE Insurance Providers Guarantor [facility] Information #: 1 Payer: [facility] Member Number: [id number] Policy Number: NA Group Number: [id number] Health Plan Information #: 2 Payer: [facility] Member Number: [id number] Policy Number: NA Group Number: [id number]
[2024-10-26 12:31] LABS: Alanine Aminotransferase 40 U/L (0-31); Albumin Level 4.2 g/dL (3.5-5.0); Alkaline Phosphatase 92 U/L (39-117); Aspartate Amino Transferase 35 U/L (5-31); Bilirubin Total 0.2 mg/dL (0.0-1.0); Blood Urea Nitrogen 16 mg/dL (9-16); Calcium 9.2 mg/dL (8.4-10.2); Carbon Dioxide 27 mmol/L (22-29); Chloride 101 mmol/L (96-108); Cholesterol 261 mg/dL (<200); Estimated Glomerular Filt Rate > 60; Glucose Random 55 mg/dL (60-115); Potassium 2.7 mmol/L (3.3-5.1); Sodium 136 mmol/L (135-145); Total Protein 6.6 g/dL (6.5-8.0); Triglycerides 121 mg/dL (<150)
[2024-10-26 14:40] LABS: HDL Cholesterol 77 mg/dL (>40); LDL Cholesterol Calculated 160 mg/dL (<100)
== END 2024-10-26 10:42 | disposition home or self-care (01) ==
LOC: HO.LAB 10:41
PROVIDERS: PCP Family Medicine; Visit Provider Psychiatry & Neurology Psychiatry
DX: F50.20 Bulimia nervosa, unspecified (principal); Z13.6 Encounter for screening for cardiovascular disorders
CPT/HCPCS: 36415; 80053; 80061; 83735; 85025

== ENCOUNTER 2024-10-26 11:02 | Outpatient (AMB) | payer OTHER, SELFPAY ==
--- NOTE | 2024-10-26 11:41 | MHC.OFFVISPS ---
Intake Intake Visit Reasons: depression Allergies prescription pain killers Allergy (Unknown, Uncoded 03/09/24 16:32) Unknown Medication List - Last Reconciled 10/26/24 by Shankar Tom MD albuterol sulfate 90 mcg/actuation inhalation escitalopram oxalate 20 mg PO DAILY fluticasone propionate 50 mcg/actuation sprays intranasal mirtazapine 7.5 mg PO BEDTIME 30 days potassium chloride ER 20 mEq PO BID quetiapine 600 mg (3 x 200 mg) PO BEDTIME quetiapine 25 - 50 mg (0.5 - 1 x 50 mg) PO BID PRN 30 days HPI- Psychiatric Chief Complaint: depression HPI Narrative: Patient seen psychiatric follow-up. Patient states she has been upbeat just had a visit by her daughter from [place]. Patient states that her binge purge episodes have been limited. She does state that she needs he is laxatives to go to the bathroom often and has for many years she is on a Regular scheduled to check her electrolytes which were drawn this morning. Patient has been seeing eating disorder counselor on a regular basis Past Psychiatric History: Patient has a history of abusing substances recurrent depression anxiety longstanding eating disorder history of a past severe suicide attempt by cutting her neck a few years ago ended up on a [address] and has been lot better since that time. Mental Status Exam Mental Status Exam Narrative: On evaluation no evidence of abnormal movement orofacial dyskinesia or other abnormal movement noted on exam as per previous Patient Appearance: Well Grooomed and Appropriate Patient Orientation: Person, Place, Time and Situation Level of Consciousness: Awake Patient Behavior: Appropriate and Good Eye Contact Mood Description: Calm and Appropriate Affect Description: Calm and Appropriate Patient Cognition Impaired: No Ability to Follow Directions: Good Speech Pattern: Clear Memory Description: Intact Hallucinations: None Delusions: Not Present Thought Process: Intact Thought Content: positive for Intact, positive for Goal Oriented, negative for Suicidal Ideation or negative for Homicidal Ideation Judgement: Good Judgement and Insight: improved agreeable to keeping jnl monthly labs seeing ed therapist online support grp more open to suggestion Assessment and Plan Assessment & Plan (1) Major depressive disorder in partial remission: Status: Acute Code(s): F32.4 - Major depressive disorder, single episode, in partial remission (2) Bulimia nervosa, purging type: Status: Acute Code(s): F50.2 - Bulimia nervosa Plan Extensive discussion regarding risks of chronic Seroquel use discussed changing daytime Seroquel to PRN. Patient's mood appears stable denies current binge purging episodes beyond 1 or 2 a week she has been cooperative with chronic monitoring of potassium she is seeing a eating disorder therapist regularly. I have asked the patient to discuss her eating disorder with her PCP Including chronic risk of eating disorder osteoporosis esophageal tear sudden hypokalemia hypo magnesium Medications: Changed From quetiapine 50 mg PO BID 60 tabs 1RF To quetiapine 25 - 50 mg (0.5 - 1 x 50 mg) PO BID 30 days PRN 60 tabs 1RF withdrawal symptoms Orders: Orders Complete Blood Count Auto Diff 10/26/24 F50.2 - Bulimia nervosa Comprehensive Met. Panel 10/26/24 F50.2 - Bulimia nervosa Magnesium 10/26/24 F50.2 - Bulimia nervosa Lipid Panel 10/27/24 E78.00 - Pure hypercholesterolemia, unspecified Counseling and coordination of Care Details: I spent [] minutes reviewing the record, seeing the patient and documenting in the medical record. Counseling provided to the patient/caregiver as outlined below. Addressed patient/caregiver concerns regarding current medication regime including effective adherence. Addressed patient/caregiver concerns regarding diagnosis and prognosis including accuracy of diagnosis, prognosis over time, impact of diagnosis. Addressed patient/caregiver concerns regarding impact of recent stressors. 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
== END 2024-10-26 11:38 | disposition home or self-care (01) ==
LOC: HO.HOP 11:02
PROVIDERS: PCP Family Medicine; Visit Provider Psychiatry & Neurology Psychiatry
DX: F50.20 Bulimia nervosa, unspecified (principal); F32.4 Major depressive disorder, single episode, in partial remission
CPT/HCPCS: 99214

== ENCOUNTER 2024-10-27 14:13 | Outpatient (REF) | payer OTHER, SELFPAY ==
[2024-10-27 15:46] LABS: Anion Gap 10 (12-20); Blood Urea Nitrogen 15 mg/dL (9-16); Carbon Dioxide 31 mmol/L (22-29); Chloride 98 mmol/L (96-108); Cholesterol 240 mg/dL (<200); Estimated Glomerular Filt Rate > 60; Glucose Random 76 mg/dL (60-115); HDL Cholesterol 70 mg/dL (>40); LDL Cholesterol Calculated 144 mg/dL (<100); Potassium 3.3 mmol/L (3.3-5.1); Sodium 136 mmol/L (135-145); Triglycerides 130 mg/dL (<150)
== END 2024-10-27 14:14 | disposition home or self-care (01) ==
LOC: HO.LAB 14:13
PROVIDERS: PCP Family Medicine; Visit Provider Psychiatry & Neurology Psychiatry
DX: E78.00 Pure hypercholesterolemia, unspecified (principal); F50.20 Bulimia nervosa, unspecified; E87.6 Hypokalemia
CPT/HCPCS: 36415; 80048; 80061; 83735

== ENCOUNTER 2024-11-05 14:07 | Outpatient (REF) | payer OTHER, SELFPAY ==
[2024-11-05 15:17] LABS: Anion Gap 14 (12-20); Carbon Dioxide 28 mmol/L (22-29); Chloride 98 mmol/L (96-108); Potassium 3.5 mmol/L (3.3-5.1); Sodium 136 mmol/L (135-145)
== END 2024-11-05 14:08 | disposition home or self-care (01) ==
LOC: HO.LAB 14:07
PROVIDERS: PCP Family Medicine; Visit Provider Psychiatry & Neurology Psychiatry
DX: F42.9 Obsessive-compulsive disorder, unspecified (principal); F41.1 Generalized anxiety disorder; F50.20 Bulimia nervosa, unspecified
CPT/HCPCS: 36415; 80051

== ENCOUNTER 2024-12-09 10:37 | Outpatient (REF) | payer OTHER, SELFPAY | END 2024-12-09 10:38 | disposition home or self-care (01) | LOC: HO.LAB 10:37 | PROVIDERS: PCP Family Medicine; Visit Provider Psychiatry & Neurology Psychiatry | DX: Z13.89 Encounter for screening for other disorder (principal) ==

== ENCOUNTER 2024-12-09 10:46 | Outpatient (AMB) | payer OTHER, SELFPAY ==
--- NOTE | 2024-12-09 11:19 | A.OFFPSYCH_ITS ---
Intake Intake Visit Reasons: depression Allergies prescription pain killers Allergy (Unknown, Uncoded 03/09/24 16:32) Unknown HPI- Psychiatric Chief Complaint: depression HPI Narrative: Patient generally has been doing okay states binge purging approximately 2 times a week she states at this point. Has had increased stress over the past 2 weeks her mother who is in a correction had fallen fracture shoulder was at [facility] and has been spending a lot of time trying to make sure that things are going right with her recovery making sure she is well taken care of. Patient has been able to go down on both mirtazapine and Seroquel no increase in symptoms Past Psychiatric History: Patient has a history of abusing substances recurrent depression anxiety longstanding eating disorder history of a past severe suicide attempt by cutting her neck a few years ago ended up on a [address] and has been lot better since that time. Mental Status Exam Mental Status Exam Narrative: On evaluation no evidence of abnormal movement orofacial dyskinesia or other abnormal movement noted on exam as per previous ongoing Somewhat stressed looking Patient Appearance: Well Grooomed and Appropriate Patient Orientation: Person, Place, Time and Situation Level of Consciousness: Awake Patient Behavior: Appropriate and Good Eye Contact Mood Description: Calm and Appropriate Affect Description: Calm and Appropriate Patient Cognition Impaired: No Ability to Follow Directions: Good Speech Pattern: Clear Memory Description: Intact Hallucinations: None Delusions: Not Present Thought Process: Intact Thought Content: positive for Intact, positive for Goal Oriented, negative for Suicidal Ideation or negative for Homicidal Ideation Judgement: Good Judgement and Insight: improved agreeable to keeping jnl monthly labs seeing ed therapist online vazquez pport grp more open to suggestion Assessment and Plan Assessment & Plan (1) Generalized anxiety disorder: Status: Acute Code(s): F41.1 - Generalized anxiety disorder (2) OCD (obsessive compulsive disorder): Status: Acute Code(s): F42.9 - Obsessive-compulsive disorder, unspecified (3) Bulimia nervosa, purging type: Status: Acute Code(s): F50.2 - Bulimia nervosa Plan Checking potassium monthly because of binge purge episodes and laxative abuse. Patient will see primary care and gastroenterology but has had long-term chronic use of laxatives. Patient continues to work with her eating disorder therapist this is going well has not been attending online support groups which we have discussed repeatedly and could be another source of support. Check metabolic panel lower Seroquel as tolerated Orders: Orders Basic Metabolic Panel 12/09/24 F50.2 - Bulimia nervosa Basic Metabolic Panel 2 Months F50.2 - Bulimia nervosa Basic Metabolic Panel 1 Month F50.2 - Bulimia nervosa Counseling and coordination of Care Pt. Self Management counselin Step program Details-Self Mgmt counseling: Issues related to binge purging stress management Details-Med Mgmt counseling: Issues related to chronic use of Seroquel risks of tardive dyskinesia diabetes and could be contributing to appetite related issues Diagnosis and Prognosis Counseling: Impact of diagnosis on life functions, Problematic behaviors secondary to diagnosis and Adequacy of current interventions Details: I spent [] minutes reviewing the record, seeing the patient and documenting in the medical record. Counseling provided to the patient/caregiver as outlined below. Addressed patient/caregiver concerns regarding current medication regime including effective adherence. Addressed patient/caregiver concerns regarding diagnosis and prognosis including accuracy of diagnosis, prognosis over time, impact of diagnosis. Addressed patient/caregiver concerns regarding impact of recent stressors. 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
== END 2024-12-09 11:46 | disposition home or self-care (01) ==
LOC: HO.HOP 10:46
PROVIDERS: PCP Family Medicine; Visit Provider Psychiatry & Neurology Psychiatry
DX: F41.1 Generalized anxiety disorder (principal); F42.9 Obsessive-compulsive disorder, unspecified; F50.2 Bulimia nervosa
CPT/HCPCS: 99214

== ENCOUNTER 2024-12-31 14:04 | Outpatient (REF) | payer OTHER, SELFPAY ==
[2024-12-31 15:14] LABS: Anion Gap 11 (12-20); Blood Urea Nitrogen 18 mg/dL (9-16); Calcium 9.1 mg/dL (8.4-10.2); Carbon Dioxide 32 mmol/L (22-29); Chloride 97 mmol/L (96-108); Estimated Glomerular Filt Rate > 60; Potassium 3.1 mmol/L (3.3-5.1); Sodium 137 mmol/L (135-145)
== END 2024-12-31 14:05 | disposition home or self-care (01) ==
LOC: HO.LAB 14:04
PROVIDERS: PCP Family Medicine; Visit Provider Psychiatry & Neurology Psychiatry
DX: F50.029 Anorexia nervosa, binge eating/purging type, unspecified (principal)
CPT/HCPCS: 36415; 80048

== ENCOUNTER 2025-01-26 11:16 | Outpatient (REF) | payer OTHER, SELFPAY ==
[2025-01-26 12:14] LABS: Anion Gap 11 (12-20); Blood Urea Nitrogen 13 mg/dL (9-16); Calcium 8.5 mg/dL (8.4-10.2); Carbon Dioxide 30 mmol/L (22-29); Chloride 101 mmol/L (96-108); Estimated Glomerular Filt Rate > 60; Magnesium 2.1 mg/dL (1.6-2.6); Potassium 3.5 mmol/L (3.3-5.1); Sodium 138 mmol/L (135-145)
== END 2025-01-26 11:17 | disposition home or self-care (01) ==
LOC: HO.LAB 11:16
PROVIDERS: PCP Family Medicine; Visit Provider Psychiatry & Neurology Psychiatry
DX: E87.6 Hypokalemia (principal); F50.029 Anorexia nervosa, binge eating/purging type, unspecified
CPT/HCPCS: 36415; 80048; 83735

== ENCOUNTER 2025-01-27 10:41 | Outpatient (AMB) | payer OTHER, SELFPAY ==
--- NOTE | 2025-01-27 10:55 | A.OFFPSYCH_ITS ---
Intake Intake Visit Reasons: depression Allergies prescription pain killers Allergy (Unknown, Uncoded 03/09/24 16:32) Unknown HPI- Psychiatric Chief Complaint: depression HPI Narrative: Pt seen in f/u had transient low potassium now 3.5 states purging 2x wk generally some clear weeks . Does have potassium supplements she states needs to use laxatives patient states her mood has generally been good has been working regularly with her eating disorder therapist. We have slightly lowered quetiapine both quetiapine and mirtazapine could be contributing factors toward increase appetite. Patient does have strategies to limit binge purge episodes. She states in general she is markedly decrease these from over 7 times week to now twice a week. She states she has a good quality of life enjoys her work at the [employer] Past Psychiatric History: Patient has a history of abusing substances recurrent depression anxiety longstanding eating disorder history of a past severe suicide attempt by cutting her neck a few years ago ended up on a [address] and has been lot better since that time. Mental Status Exam Mental Status Exam Narrative: On evaluation no evidence of abnormal movement orofacial dyskinesia or other abnormal movement noted on exam as per previous exan. Patient is aware of the risks chronic risk of tardive dyskinesia and elevated blood sugar with quetiapine Patient Appearance: Well Grooomed and Appropriate Patient Orientation: Person, Place, Time and Situation Level of Consciousness: Awake Patient Behavior: Appropriate and Good Eye Contact Mood Description: Appropriate Affect Description: Appropriate Patient Cognition Impaired: No Ability to Follow Directions: Good Speech Pattern: Clear Memory Description: Intact Hallucinations: None Delusions: Not Present Thought Process: Intact Thought Content: positive for Intact, positive for Goal Oriented, negative for Suicidal Ideation or negative for Homicidal Ideation Judgement: Good Judgement and Insight: Patient's weight stable agreeable to seeing sewing machine assembler regarding chronic constipation secondary to chronic laxative use Assessment and Plan Assessment & Plan (1) Generalized anxiety disorder: Status: Acute Code(s): F41.1 - Generalized anxiety disorder (2) Bulimia nervosa, purging type: Status: Acute Code(s): F50.2 - Bulimia nervosa Plan Discussed trying to taper down on medications that may be contributing to binge episodes such as mirtazapine from scheduled 7.5 to PRN quetiapine 25 b.i.d. PRN from 50 b.i.d. escitalopram remains at 20 mg. Patient has [facility] primary care physician discussed getting referral to gastroenterology again have urged her to keep a journal and bring it in regarding any binge purge episodes and have strongly asked her to review her labs treatment plan and risk with hypokalemia with her primary care physician who also has patient's labs. Continue labs proximally q.6 weeks Medications: Changed From mirtazapine 7.5 mg PO BEDTIME 30 days 30 tabs 2RF To mirtazapine 7.5 mg PO BEDTIME PRN 30 tabs 2RF insomnia 30 days Refilled quetiapine 25 - 50 mg (0.5 - 1 x 50 mg) PO BID PRN 60 tabs 1RF withdrawal symptoms 30 days quetiapine 600 mg (3 x 200 mg) PO BEDTIME 90 tabs 1RF escitalopram oxalate 20 mg PO DAILY 30 tabs 1RF mirtazapine 7.5 mg PO BEDTIME PRN 30 tabs 2RF insomnia 30 days Orders: Orders Electrolytes 1 Month F50.2 - Bulimia nervosa Counseling and coordination of Care Pt. Self Management counseling: Maintenance-social rhythm and Nutrition education and improvement Medication management counseling: Effectiveness, Side effects and Dosing range Diagnosis and Prognosis Counseling: Accuracy of diagnosis, Prognosis over time, Impact of diagnosis on life functions, Problematic behaviors secondary to diagnosis and Adequacy of current interventions Details-Diagnosis/Prognosis counseling: Discussed possibility of inpatient eating disorder program if patient not able to maintain her weight and safety outpatient Details: I spent [40] minutes reviewing the record, seeing the patient and documenting in the medical record. Counseling provided to the patient/caregiver as outlined below. Addressed patient/caregiver concerns regarding current medication regime including effective adherence. Addressed patient/caregiver concerns regarding diagnosis and prognosis including accuracy of diagnosis, prognosis over time, impact of diagnosis. Addressed patient/caregiver concerns regarding impact of recent stressors. 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
== END 2025-01-27 11:52 | disposition home or self-care (01) ==
LOC: HO.HOP 10:41
PROVIDERS: PCP Family Medicine; Visit Provider Psychiatry & Neurology Psychiatry
DX: F41.1 Generalized anxiety disorder (principal); F50.20 Bulimia nervosa, unspecified
CPT/HCPCS: 90833; 99213

== ENCOUNTER 2025-03-10 10:03 | Outpatient (REF) | payer OTHER, SELFPAY ==
[2025-03-10 11:45] LABS: Anion Gap 10 (12-20); Blood Urea Nitrogen 13 mg/dL (9-16); Calcium 8.7 mg/dL (8.4-10.2); Carbon Dioxide 29 mmol/L (22-29); Chloride 105 mmol/L (96-108); Estimated Glomerular Filt Rate > 60; Potassium 4.0 mmol/L (3.3-5.1); Sodium 140 mmol/L (135-145)
== END 2025-03-10 10:04 | disposition home or self-care (01) ==
LOC: HO.LAB 10:03
PROVIDERS: PCP Family Medicine; Visit Provider Psychiatry & Neurology Psychiatry
DX: F50.2 Bulimia nervosa (principal); F42.9 Obsessive-compulsive disorder, unspecified; F41.1 Generalized anxiety disorder; E87.6 Hypokalemia
CPT/HCPCS: 36415; 80048

== ENCOUNTER 2025-03-10 10:20 | Outpatient (AMB) | payer OTHER, SELFPAY ==
--- NOTE | 2025-03-10 10:59 | MHC.OFFVISPS ---
Intake Intake Visit Reasons: depression Allergies prescription pain killers Allergy (Unknown, Uncoded 03/09/24 16:32) Unknown HPI- Psychiatric Chief Complaint: depression HPI Narrative: Patient seen psychiatric follow-up. Patient eating disorder has been in better control. Potassium unremarkable patient has not wanted to lower Seroquel further knows it is at a significant schizophrenic or bipolar dosage. Patient states she has generally felt stable on quetiapine even at the higher dosage has been Past Psychiatric History: Patient has a history of abusing substances recurrent depression anxiety longstanding eating disorder history of a past severe suicide attempt by cutting her neck a few years ago ended up on a [address] and has been lot better since that time. Mental Status Exam Mental Status Exam Narrative: On evaluation no evidence of abnormal movement Patient is aware of the risks chronic risk of tardive dyskinesia and elevated blood sugar with quetiapine Patient Appearance: Well Grooomed and Appropriate Patient Orientation: Person, Place, Time and Situation Level of Consciousness: Awake Patient Behavior: Appropriate and Good Eye Contact Mood Description: Appropriate and Relaxed Affect Description: Appropriate Patient Cognition Impaired: No Ability to Follow Directions: Good Speech Pattern: Clear Memory Description: Intact Hallucinations: None Delusions: Not Present Thought Process: Intact Thought Content: positive for Intact, positive for Goal Oriented, negative for Suicidal Ideation or negative for Homicidal Ideation Judgement: Good Assessment and Plan Assessment & Plan (1) Bulimia nervosa in partial remission: Status: Acute Code(s): F50.2 - Bulimia nervosa (2) OCD (obsessive compulsive disorder): Status: Acute Code(s): F42.9 - Obsessive-compulsive disorder, unspecified Plan pt doing well has 2 purge episodes over the pqst 2 wks doess have some ocd sx regarding neatness organization and methodical mood stable Orders: Orders Comprehensive [place]. Panel Fast 1 Month F50.2 - Bulimia nervosa, F42.9 - Obsessive-compulsive disorder, unspecified, F41.1 - Generalized anxiety disorder Magnesium 1 Month F50.2 - Bulimia nervosa, F42.9 - Obsessive-compulsive disorder, unspecified, F41.1 - Generalized anxiety disorder Counseling and coordination of Care Details-Self Mgmt counseling: Issues related to eating disorder keeping a chart managing symptoms Diagnosis and Prognosis Counseling: Problematic behaviors secondary to diagnosis and Adequacy of current interventions Details: I spent [30] minutes reviewing the record, seeing the patient and documenting in the medical record. Counseling provided to the patient/caregiver as outlined below. Addressed patient/caregiver concerns regarding current medication regime including effective adherence. Addressed patient/caregiver concerns regarding diagnosis and prognosis including accuracy of diagnosis, prognosis over time, impact of diagnosis. Addressed patient/caregiver concerns regarding impact of recent stressors. 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
== END 2025-03-10 11:08 | disposition home or self-care (01) ==
LOC: HO.HOP 10:20
PROVIDERS: PCP Family Medicine; Visit Provider Psychiatry & Neurology Psychiatry
DX: F50.20 Bulimia nervosa, unspecified (principal); F42.9 Obsessive-compulsive disorder, unspecified
CPT/HCPCS: 99214

== ENCOUNTER 2025-04-21 09:26 | Outpatient (REF) | payer OTHER, SELFPAY ==
[2025-04-21 10:29] LABS: Alanine Aminotransferase 23 U/L (0-31); Albumin Level 3.7 g/dL (3.5-5.0); Alkaline Phosphatase 87 U/L (39-117); Anion Gap 8 (12-20); Aspartate Amino Transferase 29 U/L (5-31); Blood Urea Nitrogen 14 mg/dL (9-16); Calcium 8.5 mg/dL (8.4-10.2); Carbon Dioxide 28 mmol/L (22-29); Chloride 105 mmol/L (96-108); Estimated Glomerular Filt Rate > 60; Magnesium 1.9 mg/dL (1.6-2.6); Potassium 3.2 mmol/L (3.3-5.1); Sodium 138 mmol/L (135-145); Total Protein 5.7 g/dL (6.5-8.0)
== END 2025-04-21 09:27 | disposition home or self-care (01) ==
LOC: HO.LAB 09:26
PROVIDERS: PCP Family Medicine; Visit Provider Psychiatry & Neurology Psychiatry
DX: F32.5 Major depressive disorder, single episode, in full remission (principal); F50.20 Bulimia nervosa, unspecified; F42.9 Obsessive-compulsive disorder, unspecified; F41.1 Generalized anxiety disorder; Z79.899 Other long term (current) drug therapy; Z71.89 Other specified counseling
CPT/HCPCS: 36415; 80048; 80053; 83735

== ENCOUNTER 2025-04-21 09:45 | Outpatient (AMB) | payer OTHER, SELFPAY ==
--- NOTE | 2025-04-21 11:05 | A.OFFPSYCH_ITS ---
Intake Intake Visit Reasons: depression Allergies prescription pain killers Allergy (Unknown, Uncoded 03/09/24 16:32) Unknown Medication List - Last Reconciled 04/21/25 by Shankar Tom MD albuterol sulfate 90 mcg/actuation inhalation escitalopram oxalate 20 mg PO DAILY fluticasone propionate 50 mcg/actuation sprays intranasal mirtazapine 7.5 mg PO BEDTIME PRN 30 days potassium chloride ER 20 mEq PO BID quetiapine 25 - 50 mg (0.5 - 1 x 50 mg) PO BID PRN 30 days quetiapine 600 mg (3 x 200 mg) PO BEDTIME HPI- Psychiatric Chief Complaint: depression HPI Narrative: Patient seen psychiatric follow-up mood she states has been good has been purging she states no more than once a week does have ongoing diarrhea intermittently secondary to laxative use which she states has been ongoing problem. Potassium was somewhat decreased today which was reviewed with the patient she is way that this can become a potentially life-threatening condition discussed with her previously seeing gastroenterology. She is taking potassium supplementation we do monitor it monthly. Past Psychiatric History: Patient has a history of abusing substances recurrent depression anxiety longstanding eating disorder history of a past severe suicide attempt by cutting her neck a few years ago ended up on a [address] and has been lot better since that time. Results Reviewed Results Reviewed: Name: Teena Forbes Age/Sex: 59/F : 1965 Unit#: [id number] Attend Dr: Shankar Tom MD Re04/21/25 Status: DEP [facility] Disch: SPEC : [id number] BERONICA: 04/21/25 STATUS: COMP REQ : [id number] RECD: 04/21/[address]: Shankar Tom MD COMP: 04/21/25 ENTERED: 04/21/[address]: Francie Foster MD ORDERED: CMP Fast, BMP, MG Test Result Flag Reference Sodium 138 135-145 mmol/L Potassium 3.2 L 3.3-5.1 mmol/L CL 105 96-108 mmol/L CO2 28 22-29 mmol/L Gap 8 L 12-20 BUN 14 9-16 mg/dL Creat 0.86 0.5-1.4 mg/dL eGFR > 60 Chronic Kidney Disease: Estimated GFR < 60 mL/min/1.73m2 Severe Kidney Disease: Estimated GFR < 15 mL/min/1.73m2 Glucose, Random 93 60-115 mg/dL FBS 93 60-99 mg/dL CA 8.5 8.4-10.2 mg/dL Magnesium 1.9 1.6-2.6 mg/dL Total Bili 0.2 0.0-1.0 mg/dL AST (GOT) 29 5-31 U/L ALT (GPT) 23 0-31 U/L Protein, Total 5.7 L 6.5-8.0 g/dL Alb 3.7 3.5-5.0 g/dL Alk Phos 87 39-117 U/L END OF REPORT * Assessment and Plan Assessment & Plan (1) Bulimia nervosa, purging type: Status: Acute Code(s): F50.2 - Bulimia nervosa (2) OCD (obsessive compulsive disorder): Status: Acute Code(s): F42.9 - Obsessive-compulsive disorder, unspecified (3) Generalized anxiety disorder: Status: Acute Code(s): F41.1 - Generalized anxiety disorder (4) Major depression in full remission: Status: Acute Code(s): F32.5 - Major depressive disorder, single episode, in full remission Plan Continue to encourage tapering down on quetiapine currently taking 600 at bedtime patient's history of depression with obsessional anxiety she does have a prior very significant suicide attempt. Has been stable now for her eating disorder for a significant period of time. Patient asked to keep a eating disorder journal encourage GI referral which he can get through her PCP also offered to make a referral through [facility]. Patient reportedly not purging more than once a week reports intermittent significant diarrhea. Check repeat potassium in a few days 4 weeks PHQ-9 in GED not elevated Medications: Refilled mirtazapine 7.5 mg PO BEDTIME PRN 30 tabs 2RF insomnia 30 days potassium chloride ER 20 mEq PO BID 60 tabs 2RF quetiapine 600 mg (3 x 200 mg) PO BEDTIME 90 tabs 1RF escitalopram oxalate 20 mg PO DAILY 30 tabs 1RF quetiapine 25 - 50 mg (0.5 - 1 x 50 mg) PO BID PRN 60 tabs 1RF anxiety 30 days Orders: Orders Comprehensive [place]. Panel 04/26/25 F50.2 - Bulimia nervosa, F42.9 - Obsessive- compulsive disorder, unspecified, F41.1 - Generalized anxiety disorder Counseling and coordination of Care Details-Self Mgmt counseling: Issues related to chronic eating Medication management counseling: Effectiveness, Side effects and Dosing range Diagnosis and Prognosis Counseling: Impact of diagnosis on life functions, Problematic behaviors secondary to diagnosis and Adequacy of current interventions Details: I spent [38] minutes reviewing the record, seeing the patient and documenting in the medical record. Counseling provided to the patient/caregiver as outlined below. Addressed patient/caregiver concerns regarding current medication regime including effective adherence. Addressed patient/caregiver concerns regarding diagnosis and prognosis including accuracy of diagnosis, prognosis over time, impact of diagnosis. Addressed patient/caregiver concerns regarding impact of recent stressors. 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
== END 2025-04-21 10:56 | disposition home or self-care (01) ==
LOC: HO.HOP 09:45
PROVIDERS: PCP Family Medicine; Visit Provider Psychiatry & Neurology Psychiatry
DX: F50.20 Bulimia nervosa, unspecified (principal); F42.9 Obsessive-compulsive disorder, unspecified; F41.1 Generalized anxiety disorder; F32.5 Major depressive disorder, single episode, in full remission
CPT/HCPCS: 90833; 99213

== ENCOUNTER 2025-04-29 13:55 | Outpatient (REF) | payer OTHER, SELFPAY ==
[2025-04-29 15:04] LABS: Alanine Aminotransferase 32 U/L (0-31); Albumin Level 3.6 g/dL (3.5-5.0); Alkaline Phosphatase 77 U/L (39-117); Anion Gap 10 (12-20); Aspartate Amino Transferase 29 U/L (5-31); Blood Urea Nitrogen 15 mg/dL (9-16); Calcium 8.3 mg/dL (8.4-10.2); Carbon Dioxide 32 mmol/L (22-29); Chloride 103 mmol/L (96-108); Estimated Glomerular Filt Rate > 60; Potassium 4.2 mmol/L (3.3-5.1); Sodium 141 mmol/L (135-145); Total Protein 5.5 g/dL (6.5-8.0)
== END 2025-04-29 13:56 | disposition home or self-care (01) ==
LOC: HO.LAB 13:55
PROVIDERS: PCP Family Medicine; Visit Provider Psychiatry & Neurology Psychiatry
DX: F50.20 Bulimia nervosa, unspecified (principal); F42.9 Obsessive-compulsive disorder, unspecified; F41.1 Generalized anxiety disorder
CPT/HCPCS: 36415; 80053

== ENCOUNTER 2025-06-08 09:39 | Outpatient (REF) | payer OTHER, SELFPAY ==
[2025-06-08 10:45] LABS: Anion Gap 13 (12-20); Carbon Dioxide 31 mmol/L (22-29); Chloride 97 mmol/L (96-108); Potassium 3.3 mmol/L (3.3-5.1); Sodium 138 mmol/L (135-145)
== END 2025-06-08 09:40 | disposition home or self-care (01) ==
LOC: HO.LAB 09:39
PROVIDERS: PCP Family Medicine; Visit Provider Psychiatry & Neurology Psychiatry
DX: F41.1 Generalized anxiety disorder (principal); F50.20 Bulimia nervosa, unspecified; F42.9 Obsessive-compulsive disorder, unspecified; Z79.899 Other long term (current) drug therapy
CPT/HCPCS: 36415; 80051

== ENCOUNTER 2025-06-08 09:52 | Outpatient (AMB) | payer OTHER, SELFPAY ==
--- NOTE | 2025-06-08 10:22 | MHC.OFFVISPS ---
Intake Intake Visit Reasons: depression Allergies prescription pain killers Allergy (Unknown, Uncoded 03/09/24 16:32) Unknown HPI- Psychiatric Chief Complaint: depression HPI Narrative: Pt seen in f/u mood has been stable generally couple of relapses but significantly decreased binge purge episodes. Does have some degree of chronic loose stools secondary to laxative use. ATIENT SUMMARY The patient presented for a follow-up visit to address ongoing challenges related to an eating disorder and to discuss medication management. HPI The patient reported that the holidays have historically been difficult due to their association with food, but the patient felt they managed better than anticipated this year with only a couple of slips. The patient mentioned blowing off Thanksgiving due to family dynamics and preferred staying at home instead. The patient admitted to having difficulties with maintaining sobriety from binge eating, especially during the holidays at work where they are surrounded by food brought in by families. The patient noted purging about four times since Thanksgiving, attributing it to binge eating. Previously, the patient was doing better with purging only once or twice per week. The patient confirmed that purging is more likely to occur at work since they try not to keep binge foods at home. PAIN The patient did not report any pain and thus no pain level was provided. BACKGROUND The patient did not report any new allergies or medications. The patient occasionally took Seroquel (quetiapine) as needed during the day and was currently on 550 mg, although they attempted to reduce it to 500 mg. The patient also occasionally took mirtazapine based on their caffeine intake. The patient described a pattern of chronic constipation requiring laxative use for bowel movements and had not seen a crime data specialist in years. No new physical symptoms were reported. Past Psychiatric History: Patient has a history of abusing substances recurrent depression anxiety longstanding eating disorder history of a past severe suicide attempt by cutting her neck a few years ago ended up on a [address] and has been lot better since that time. Mental Status Exam Mental Status Exam Narrative: Patient casually dressed brief good eye contact. Speech clear goal-directed. Mood described as good affect appropriate no self-harming thoughts no psychotic symptoms. Content focused on treatment impulse control adequate improved insight agreeable to monthly lab draws to check on her electrolytes Assessment and Plan Assessment & Plan (1) OCD (obsessive compulsive disorder): Status: Acute Code(s): F42.9 - Obsessive-compulsive disorder, unspecified (2) Generalized anxiety disorder: Status: Acute Code(s): F41.1 - Generalized anxiety disorder (3) Bulimia nervosa, purging type: Status: Acute Code(s): F50.2 - Bulimia nervosa Plan ASSESSMENT The patient presented with ongoing challenges related to an eating disorder, characterized by episodes of binge eating and purging, particularly exacerbated by holiday stress and environmental factors at work. The differential diagnosis included bulimia nervosa and binge-eating disorder. The patient's chronic constipation and self-treatment with laxatives raised concerns about electrolyte imbalances, possibly contributing to low potassium levels. Strongly encouraged gradual tapering of Seroquel secondary to risks of tardive dyskinesia PLAN 1. Initiate a referral for a gastroenterology consult to evaluate chronic constipation and potential electrolyte imbalances. 2. Encourage the patient to reduce quetiapine to 500 mg after the New Year to minimize the risk of tardive dyskinesia. 3. Discuss the potential benefits of joining a support group such as Eating Disorders Anonymous and considering a sponsor for additional support. 4. Refill prescriptions for current medications and ensure they are on file for June. 5. Schedule a follow-up visit in six weeks to monitor the patient's progress and re-evaluate treatment plans. Medications: Refilled escitalopram oxalate 20 mg PO DAILY 30 tabs 1RF quetiapine 600 mg (3 x 200 mg) PO BEDTIME 90 tabs 1RF Counseling and coordination of Care Details: I spent [] minutes reviewing the record, seeing the patient and documenting in the medical record. Counseling provided to the patient/caregiver as outlined below. Addressed patient/caregiver concerns regarding current medication regime including effective adherence. Addressed patient/caregiver concerns regarding diagnosis and prognosis including accuracy of diagnosis, prognosis over time, impact of diagnosis. Addressed patient/caregiver concerns regarding impact of recent stressors. 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
== END 2025-06-08 10:38 | disposition home or self-care (01) ==
LOC: HO.HOP 09:52
PROVIDERS: PCP Family Medicine; Visit Provider Psychiatry & Neurology Psychiatry
DX: F42.9 Obsessive-compulsive disorder, unspecified (principal); F41.1 Generalized anxiety disorder; F50.20 Bulimia nervosa, unspecified
CPT/HCPCS: 99214